=== PATIENT | female | born 1930 | race Caucasian/White ===

== ENCOUNTER → 2016-09-13 | Outpatient (CLI) | payer BC ==
[~2016-09-13] MED LIST: ACET-1256 PO; ASPI-232 PO; BCTO EXT; BISA10SU3 PR; CEPH-571 PO; CHOL1000 PO; CLON0.5T3 PO; CZR50 PO; DILT120C68 PO; DOCU-94 PO; DXM1 PO; DYZ PO; GABA1CAP PO; HYDR25TA4 PO; LEVE250T PO; LOSA100T65 PO; MELA3TAB12 PO; METO100T14 PO; METO50TA7 PO; MOML PO; MULT-506 PO; PENC1CRE4 TOP; POTA10CA28 PO; RSTOPS OP; SODIENE PR; STLS PO; WARF2TAB PO
== END | disposition home or self-care (01) ==
LOC: C.LABFOXMH 17:22
PROVIDERS: ATTEND Nurse Practitioner Family
DX: R35.0 Frequency of micturition (principal)

== ENCOUNTER → 2016-10-14 | Outpatient (CLI) | payer BC ==
[2016-10-14 08:14] LABS: HEMATOCRIT 36.1 % (37-47); MEAN CELL VOLUME 92.3 fL (80-100); MEAN CORPUSCULAR HEMOGLOBIN 32.5 pg (25-34); MEAN CORPUSCULAR HGB CONC 35.2 g/dl (32-36); RED BLOOD COUNT 3.91 M/uL (4.2-5.4); WHITE BLOOD COUNT 4.77 K/uL (4.8-10.8)
[2016-10-14 08:15] LABS: MEAN PLATELET VOLUME 9.6 fL (7.4-10.4); PLATELET COUNT 268 K/uL (130-400)
[2016-10-14 08:26] LABS: ALT/SGPT 22 U/L (12-78); BLOOD UREA NITROGEN 18 mg/dl (7-18); BUN/CREATININE RATIO 30.7 (10-20); CALCIUM 8.6 mg/dl (8.5-10.1); CARBON DIOXIDE 25 mmol/L (21-32); CHLORIDE 104 mmol/L (98-107); CREATININE 0.58 mg/dl (0.60-1.20); GLUCOSE 79 mg/dl (70-99); POTASSIUM 3.8 mmol/L (3.5-5.1); SODIUM 138 mmol/L (136-145)
[2016-10-14 08:36] LABS: ALB/GLOB RATIO 1.1 (0.9-2); ALKALINE PHOSPHATASE 51 U/L (45-117); AST/SGOT 15 U/L (15-37)
== END | disposition home or self-care (01) ==
LOC: C.LABFOXMH 07:46
PROVIDERS: ATTEND Internal Medicine
DX: R60.9 Edema, unspecified (principal)

== ENCOUNTER → 2016-10-18 | Outpatient (CLI) | payer BC ==
[2016-10-18 08:54] LABS: HEMATOCRIT 38.6 % (37-47); MEAN CELL VOLUME 94.6 fL (80-100); MEAN CORPUSCULAR HEMOGLOBIN 32.1 pg (25-34); MEAN CORPUSCULAR HGB CONC 33.9 g/dl (32-36); MEAN PLATELET VOLUME 10.2 fL (7.4-10.4); PLATELET COUNT 295 K/uL (130-400); RED BLOOD COUNT 4.08 M/uL (4.2-5.4); WHITE BLOOD COUNT 5.22 K/uL (4.8-10.8)
[2016-10-18 09:02] LABS: ALT/SGPT 23 U/L (12-78); AST/SGOT 15 U/L (15-37); BLOOD UREA NITROGEN 19 mg/dl (7-18); BUN/CREATININE RATIO 26.9 (10-20); CALCIUM 8.6 mg/dl (8.5-10.1); CARBON DIOXIDE 27 mmol/L (21-32); CHLORIDE 102 mmol/L (98-107); CREATININE 0.71 mg/dl (0.60-1.20); GLUCOSE 80 mg/dl (70-99); POTASSIUM 3.5 mmol/L (3.5-5.1); SODIUM 137 mmol/L (136-145)
[2016-10-18 09:05] LABS: ALB/GLOB RATIO 1.1 (0.9-2); ALKALINE PHOSPHATASE 54 U/L (45-117)
== END | disposition home or self-care (01) ==
LOC: C.LABFOXMH 08:41
PROVIDERS: ATTEND Internal Medicine
DX: R00.0 Tachycardia, unspecified (principal)

== ENCOUNTER → 2016-10-31 | Outpatient (CLI) | payer BC ==
[~2016-10-31] MED LIST changes: +CEFD300C3 PO; +DILT120C50 PO; +DMD20 PO; +LNX125 PO; +NEOMOIN3 TOP; +PENC1CRE33 TOP; -PENC1CRE4 TOP; +SALI0.6593 NAE
--- NOTE | 2016-10-31 12:55 | ECHOCARDIOGRAM REPORT ---
*NOTICE TO RECEIVING [employer] [employer] This information is strictly Confidential and protected under [place] law. [place] law prohibits you from making any further disclosure of this information unless further disclosure is expressly permitted by the written consent of the person to whom it pertains or is authorized by law. A general authorization for the release of medical or other information is not sufficient for this purpose. Hospital accepts no responsibility if the information is made available to any other person, INCLUDING THE PATIENT. Interpretation Summary * Name: TANYA PERALTA Study Date: 10/31/2016 10:56 AM BP: 120/80 mmHg * Patient Location: [facility] HR: 63 * : 1930 (M/d/yyyy) Gender: Female Height: 66 in * Age: 85 yrs Ethnicity: CA Weight: 175 lb * Performed By: Piper Duarte RCS * * Reason For Study: ATRIAL TACHYCARDIA * BSA: 1.9 m2 * -- Conclusions -- * Left ventricular systolic function is normal. * No regional wall motion abnormalities noted. * Ejection Fraction = 55-60%. * There is mild concentric left ventricular hypertrophy. * Grade I diastolic dysfunction, (abnormal relaxation pattern). * No significant valvular pathology. Procedure Details * A complete two-dimensional transthoracic echocardiogram was performed (2D, M-mode, Doppler and color flow Doppler). Left Ventricle * The left ventricle is normal in size. * There is mild concentric left ventricular hypertrophy. * Left ventricular systolic function is normal. * Ejection Fraction = 55-60%. * No regional wall motion abnormalities noted. Right Ventricle * The right ventricle is not well visualized. * The right ventricular systolic function is normal as assessed by tricuspid annular plane systolic excursion (TAPSE) (normal >1.5 cm). Atria * The left atrium is mildly dilated. * The right atrium is mildly dilated. * No ASD detected; PFO is not assessed. Mitral Valve * The mitral valve anatomy is normal. * There is no mitral valve stenosis. * There is trace mitral regurgitation. Tricuspid Valve * The tricuspid valve is not well visualized, but is grossly normal. * Significant tricuspid regurgitation is absent. Aortic Valve * The aortic valve is normal in structure and function. * No hemodynamically significant valvular aortic stenosis. * Trace aortic regurgitation. Pulmonic Valve * The pulmonary valve is not well seen, but the Doppler examination is normal without significant regurgitation or stenosis. Great Vessels * The aortic root is normal size. * Mildly dilated ascending aorta. * The pulmonary artery is not well visualized, but is probably normal size. Pericardium/Pleural * There is no pericardial effusion. Left Ventricular Diastolic Function * Grade I diastolic dysfunction, (abnormal relaxation pattern). MMode 2D Measurements and Calculations IVSd 1.6 cm IVSs 2.0 cm LVIDd 4.2 cm LVIDs 2.3 cm LVPWd 1.3 cm LVPWs 1.6 cm IVS/LVPW 1.2 FS 46.3 % EDV(Teich) 79.7 ml ESV(Teich) 17.5 ml EF(Teich) 78.1 % EDV(cubed) 75.5 ml ESV(cubed) 11.7 ml EF(cubed) 84.6 % % IVS thick 27.8 % % LVPW thick 26.7 % LV mass(C)d 232.0 grams LV mass(C)dI 122.7 grams/m\S\2 LV mass(C)s 160.9 grams LV mass(C)sI 85.1 grams/m\S\2 SV(Teich) 62.3 ml SI(Teich) 32.9 ml/m\S\2 SV(cubed) 63.8 ml SI(cubed) 33.8 ml/m\S\2 Ao root diam 3.9 cm Ao root area 12.2 cm\S\2 ACS 2.2 cm LA dimension 4.3 cm LA/Ao 1.1 LVOT diam 2.0 cm LVOT area 3.1 cm\S\2 LVAd ap4 24.9 cm\S\2 LVLd ap4 6.5 cm EDV(MOD-sp4) 80.4 ml EDV(sp4-el) 81.8 ml LVAs ap4 15.0 cm\S\2 LVLs ap4 5.1 cm ESV(MOD-sp4) 36.2 ml ESV(sp4-el) 37.2 ml EF(MOD-sp4) 55.0 % EF(sp4-el) 54.6 % LVAd ap2 28.2 cm\S\2 LVLd ap2 6.7 cm EDV(MOD-sp2) 94.4 ml EDV(sp2-el) 100.7 ml LVAs ap2 13.6 cm\S\2 LVLs ap2 4.9 cm ESV(MOD-sp2) 31.8 ml ESV(sp2-el) 31.7 ml EF(MOD-sp2) 66.3 % EF(sp2-el) 68.5 % LVLd %diff 3.6 % EDV(MOD-bp) 89.5 ml LVLs %diff -3.80 % ESV(MOD-bp) 34.6 ml EF(MOD-bp) 61.3 % SV(MOD-sp4) 44.2 ml SI(MOD-sp4) 23.4 ml/m\S\2 SV(MOD-sp2) 62.6 ml SI(MOD-sp2) 33.1 ml/m\S\2 SV(MOD-bp) 54.9 ml SI(MOD-bp) 29.0 ml/m\S\2 SV(sp4-el) 44.6 ml SI(sp4-el) 23.6 ml/m\S\2 SV(sp2-el) 68.9 ml SI(sp2-el) 36.5 ml/m\S\2 Doppler Measurements and Calculations MV E max rohan 85.2 cm/sec MV A max rohan 98.1 cm/sec MV E/A 0.87 MV P1/2t max rohan 85.9 cm/sec MV P1/2t 89.2 msec MVA(P1/2t) 2.5 cm\S\2 MV dec slope 282.0 cm/sec\S\2 MV dec time 0.29 sec Ao V2 max 113.0 cm/sec Ao max PG 5.1 mmHg Ao max PG (full) 2.4 mmHg COURTNEY(V,A) 2.2 cm\S\2 COURTNEY(V,D) 2.2 cm\S\2 LV V1 max PG 2.7 mmHg LV V1 max 82.5 cm/sec PA V2 max 95.3 cm/sec PA max PG 3.6 mmHg
== END | disposition home or self-care (01) ==
LOC: C.CPL 10:46
PROVIDERS: ATTEND Internal Medicine
DX: R06.00 Dyspnea, unspecified (principal); I47.1 Supraventricular tachycardia

== ENCOUNTER → 2016-11-01 | Outpatient (CLI) | payer BC ==
[2016-11-01 09:18] LABS: BLOOD UREA NITROGEN 21 mg/dl (7-18); CREATININE 0.69 mg/dl (0.60-1.20); GLUCOSE 88 mg/dl (70-99)
[2016-11-01 09:19] LABS: BUN/CREATININE RATIO 30.6 (10-20); CALCIUM 8.8 mg/dl (8.5-10.1); CARBON DIOXIDE 28 mmol/L (21-32); CHLORIDE 101 mmol/L (98-107); POTASSIUM 4.1 mmol/L (3.5-5.1); SODIUM 137 mmol/L (136-145)
== END | disposition home or self-care (01) ==
LOC: C.LABFOXMH 08:56
PROVIDERS: ATTEND Internal Medicine
DX: K59.00 Constipation, unspecified (principal); E03.9 Hypothyroidism, unspecified

== ENCOUNTER → 2016-11-29 | Outpatient (CLI) | payer BC ==
[2016-11-29 08:57] LABS: BASO % 0.4 %; BASO ABS # 0.02 K/uL (0-0.2); COMPLETE YES; EOS % 1.8 %; LYMPH % 33.2 %; LYMPH ABS # 1.63 K/uL (1.2-3.4); MEAN CELL VOLUME 96.9 fL (80-100); MEAN CORPUSCULAR HEMOGLOBIN 31.9 pg (25-34); MEAN CORPUSCULAR HGB CONC 32.9 g/dl (32-36); MEAN PLATELET VOLUME 10.3 fL (7.4-10.4); MONO % 7.9 %; NEUT % 56.7 %; PLATELET COUNT 259 K/uL (130-400); RED BLOOD COUNT 4.23 M/uL (4.2-5.4); WHITE BLOOD COUNT 4.91 K/uL (4.8-10.8)
[2016-11-29 09:06] LABS: BLOOD UREA NITROGEN 22 mg/dl (7-18); BUN/CREATININE RATIO 31.4 (10-20); CARBON DIOXIDE 27 mmol/L (21-32); CHLORIDE 105 mmol/L (98-107); CREATININE 0.71 mg/dl (0.60-1.20); GLUCOSE 85 mg/dl (70-99); POTASSIUM 3.9 mmol/L (3.5-5.1); SODIUM 140 mmol/L (136-145); URIC ACID 3.9 mg/dl (2.6-7.2)
[2016-11-29 09:19] LABS: CALCIUM 8.8 mg/dl (8.5-10.1)
== END ==
LOC: C.LABFOXMH 08:37
PROVIDERS: ATTEND Internal Medicine
DX: I10 Essential (primary) hypertension (principal); M25.50 Pain in unspecified joint

== ENCOUNTER → 2017-02-07 | Outpatient (CLI) | payer BC ==
[~2017-02-07] MED LIST changes: -CEFD300C3 PO; -DILT120C50 PO; -DMD20 PO; -LNX125 PO; -NEOMOIN3 TOP; -PENC1CRE33 TOP; +PENC1CRE4 TOP; -SALI0.6593 NAE
== END | disposition home or self-care (01) ==
LOC: C.LABFOXMH 17:40
PROVIDERS: ATTEND Nurse Practitioner Family
DX: R35.0 Frequency of micturition (principal)

== ENCOUNTER 2017-02-08 04:11 | Emergency (ER) | payer BC ==
[~2017-02-08] VITALS: Ht 165.1 cm; Wt 82.3 kg
[~2017-02-08 04:11] MED LIST changes: -ACET-1256 PO; -ASPI-232 PO; -BCTO EXT; -BISA10SU3 PR; -CEPH-571 PO; -CHOL1000 PO; -CLON0.5T3 PO; -DILT120C68 PO; -DOCU-94 PO; -DXM1 PO; -GABA1CAP PO; -HYDR25TA4 PO; -LEVE250T PO; -LOSA100T65 PO; -MELA3TAB12 PO; -METO100T14 PO; -METO50TA7 PO; -MOML PO; -PENC1CRE4 TOP; -POTA10CA28 PO; -SODIENE PR
[2017-02-08 04:14] VITALS: TEMP 36.7; Ht 165.1 cm; Wt 82.3 kg
--- NOTE | 2017-02-08 04:33 | EMERGENCY ROOM VISIT NOTE ---
History Report prepared by Phyllisibguera: Jeannine Montalvo Under the Supervision of: Dr. June Richardson D.O. First contact with patient: 04:16 Chief Complaint: FALL Stated Complaint: FALL History of Present Illness The patient is an 86 year old female who presents to the Emergency Room with complaints of a fall that occurred prior to arrival. She was brought to the ED via EMS from [facility] where she resides. She reports she went to bed around 2200 last night, and the next thing she knew, she woke up on the floor of her living room. She states she does not know how she ended up on the floor, but was able to call a neighbor for help, who then called EMS. She denies hitting her head during the fall. She admits to some left forearm pain but denies any knee pain. She also complains of "tight" low back pain and feeling "shaky" here in the ED. The patient is currently on antibiotics but states she does not know why she's taking them. Her daughter is a radiologist in [place] and staff at [facility] called her after the patient was taken to the ED. EMS reports there was "dark yellow" urine on the floor by the patient when they arrived, but her apartment did not seem overly messy or out of order. They state the patient told them she took a sleeping pill prior to going to bed. 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 A total of 10 systems reviewed and were otherwise negative. Past Medical & Surgical Medical Problems: (1) Arthritis (2) Hypertension Social History Alcohol Use: none Drug Use: none Marital Status: Housing Status: assisted living Occupation Status: retired Current/Historical Medications Unable to Obtain Active Prescriptions or Reported Meds Allergies Coded Allergies: No Known Allergies (Unverified , NONE, 06/12/13) Physical Exam Vital Signs Date Time Temp Pulse Resp B/P (MAP) Pulse Ox O2 Delivery O2 Flow Rate FiO2 02/08/17 05:22 76 18 175/93 96 Room Air 02/08/17 05:18 95 Room Air 02/08/17 04:25 76 02/08/17 04:14 36.7 71 20 181/80 96 Room Air Physical Exam HEENT: Head - normocephalic and atraumatic. Pupils are equal, round, and reactive to light. Extraocular eye muscles are intact and sclera are anicteric. Nose - moist nasal mucosa without evidence of trauma or discharge. Mouth - moist buccal mucosa with no trauma to the teeth or signs of malocclusion. Neck: The neck is supple and there is no pain to palpation over the posterior cervical spine and no obvious step-offs or deformities. There is no JVD or tracheal deviation. Chest: There are no signs of deformities, contusions or abrasions to the chest wall. There is no obvious crepitus or paradoxical chest rise. Heart: Regular, rate, and rhythm. There is a normal S1 and S2 with no murmurs, clicks, or gallops appreciated. Lungs: Clear to auscultation bilaterally with no wheezes, rales, or rhonchi. Abdomen: Soft, completely nontender, nondistended, with good bowel sounds. There is no sign of trauma such as contusions, abrasions or penetrations. There are no palpable pulsatile masses or hepatosplenomegaly. There is no guarding, rigidity, or rebound noted. Pelvis: Stable to rock and compression. Extremities: Abrasions on the medial aspect of the left forearm and left wrist. Contusion to left shoulder, normal ROM. No obvious deformities, contusions, or edema. There are easily palpable peripheral pulses. Neuro: The patient is awake and alert but unsure of the events of the fall, or why she is on antibiotics. Muscle strength is 5 out of 5 in all 4 extremities. Otherwise, neuro exam is unremarkable. Back: The entire thoracic, lumbar, and sacral spine were palpated. There are no obvious step-offs or deformities noted. There are no obvious signs of trauma such as contusions abrasions penetrations noted to the back. Medical Decision & Procedures ER Provider Diagnostic Interpretation: Radiology results as stated below per my review and the radiologist's interpretation: CHEST X-RAY Cardiomegaly. No pulmonary infiltrates or pleural effusions seen, per my own review. CT HEAD Comparison 02/05/2011. Previously described left frontoparietal mass has increased in size with increased vasogenic edema in the left cerebral hemisphere. 8 mm midline shift to the right. Correlate with history. No intracranial hemorrhage. No skull fracture. Paranasal sinuses and mastoid air cells are clear. Radiologist: Dr. Richy Robison MD Laboratory Results 02/08/17 05:11 Red Blood Count 4.58, Mean Corpuscular Volume 91.9, Mean Corpuscular Hemoglobin 32.1, Mean Corpuscular Hemoglobin Concent 34.9, Mean Platelet Volume 9.3, Neutrophils (%) (Auto) 79.0, Lymphocytes (%) (Auto) 11.5, Monocytes (%) (Auto) 8.9, Eosinophils (%) (Auto) 0.3, Basophils (%) (Auto) 0.0, Neutrophils # (Auto) 6.11, Lymphocytes # (Auto) 0.89, Monocytes # (Auto) 0.69, Eosinophils # (Auto) 0.02, Basophils # (Auto) 0.00 02/08/17 05:11 Test 02/08/17 05:00 02/08/17 05:11 02/08/17 05:21 Urine Color DK YELLOW Urine Appearance CLEAR (CLEAR) Urine pH 7.5 (4.5-7.5) Urine Specific Ducor 1.009 (1.000-1.030) Urine Protein NEG (NEG) Urine Glucose (UA) NEG (NEG) Urine Ketones NEG (NEG) Urine Occult Blood NEG (NEG) Urine Nitrite POS (NEG) Urine Bilirubin NEG (NEG) Urine Urobilinogen NEG (NEG) Urine Leukocyte Esterase NEG (NEG) Urine WBC (Auto) 0 /hpf (0-5) Urine RBC (Auto) 0-4 /hpf (0-4) Urine Hyaline Casts (Auto) 0 /lpf (0-5) Urine Epithelial Cells (Auto) 0-5 /lpf (0-5) Urine Bacteria (Auto) NEG (NEG) White Blood Count 7.73 K/uL (4.8-10.8) Red Blood Count 4.58 M/uL (4.2-5.4) Hemoglobin 14.7 g/dL (12.0-16.0) Hematocrit 42.1 % (37-47) Mean Corpuscular Volume 91.9 fL (80-100) Mean Corpuscular Hemoglobin 32.1 pg (25-34) Mean Corpuscular Hemoglobin Concent 34.9 g/dl (32-36) Platelet Count 289 K/uL (130-400) Mean Platelet Volume 9.3 fL (7.4-10.4) Neutrophils (%) (Auto) 79.0 % Lymphocytes (%) (Auto) 11.5 % Monocytes (%) (Auto) 8.9 % Eosinophils (%) (Auto) 0.3 % Basophils (%) (Auto) 0.0 % Neutrophils # (Auto) 6.11 K/uL (1.4-6.5) Lymphocytes # (Auto) 0.89 K/uL (1.2-3.4) Monocytes # (Auto) 0.69 K/uL (0.11-0.59) Eosinophils # (Auto) 0.02 K/uL (0-0.5) Basophils # (Auto) 0.00 K/uL (0-0.2) RDW Standard Deviation 43.7 fL (36.4-46.3) RDW Coefficient of Variation 13.0 % (11.5-14.5) Immature Granulocyte % (Auto) 0.3 % Immature Granulocyte # (Auto) 0.02 K/uL (0.00-0.02) Prothrombin Time 10.1 SECONDS (9.0-12.0) Prothromb Time International Ratio 0.9 (0.9-1.1) Activated Partial Thromboplast Time 30.4 SECONDS (21.0-31.0) Partial Thromboplastin Ratio 1.2 Anion Gap 9.0 mmol/L (3-11) Est Creatinine Clear Calc Drug Dose 58.6 ml/min Estimated GFR () 86.4 Estimated GFR (Non- 74.6 BUN/Creatinine Ratio 26.0 (10-20) Calcium Level 8.8 mg/dl (8.5-10.1) Total Bilirubin 0.9 mg/dl (0.2-1) Aspartate Amino Transf (AST/SGOT) 30 U/L (15-37) Alanine Aminotransferase (ALT/SGPT) 35 U/L (12-78) Alkaline Phosphatase 67 U/L (45-117) Total Protein 6.9 gm/dl (6.4-8.2) Albumin 3.6 gm/dl (3.4-5.0) Globulin 3.3 gm/dl (2.5-4.0) Albumin/Globulin Ratio 1.1 (0.9-2) Bedside Lactic Acid Venous 0.75 mmol/L (0.90-1.70) Laboratory results per my review. ED Course 0419: Past medical records reviewed. The patient was evaluated in room A3. A complete history and physical exam was performed. Laboratory studies were drawn as above. The patient was able to provide a urine specimen. 0435: Staff at [facility] cannot get in to any of their computer systems to get medical information on the patient. The patient will go for CT scan of the brain to evaluate for progression or enlargement of the known meningioma. 0445: I spoke with the patient's daughter, Dr. Vanessa Dodd, on the phone. She states her mother has a history of meningioma. She has noticed increased spells of confusion and difficulty with language. She did speak with the patient last night on the phone and noticed she was slightly confused, but it did clear up. She was diagnosed yesterday with a UTI and was placed on antibiotics, but she is unsure which medication was prescribed. 0548: I reevaluated the patient. Her mental status is more clear and she is drinking water with no issues. 0618: I spoke with the patients daughter, Vanessa, again. I discussed her test results and my recommendation she follow up with Dr. Baeza at [facility] later today. She verbalized complete understanding and agreement. 0620: I reevaluated the patient. She is feeling well. I discussed her results and discharge instructions and she verbalized complete understanding and agreement. Medical Decision Patient was found to have an elevated blood pressure and was referred to their primary doctor for recheck and further treatment. The patient is an 86 year old female who presents to the ED with a fall. The different diagnoses include: Sepsis, syncope, UTI, medication side effects, mechanical fall and head injury. Lab results show: Urinalysis shows dark yellow urine, positive nitrite, otherwise completely negative. Lactic acid is low at 0.75, COAG's are normal, no leukocytosis, stable H&H. Sodium is slightly low at 132, BUN is 19, Creatinine is 0.7, Glucose is 94, LFT's are normal. This is an 86-year-old female patient who fell to the floor in her living room of her apartment. The patient does not remember how she got out to the living room. EMS/police found that she was incontinent. The patient is currently being treated with an antibiotic for a urinary tract infection. The patient's daughter who is a physician describes a history of increasing episodes of confusion. CT scan confirms slight enlargement of the meningioma with slight increase of midline shift. There was no associated hemorrhage. The patient's mental status returned to normal prior to discharge. I've encouraged the patient to be seen today by Dr. Baeza at [facility] for these increased episodes of confusion. She should continue the antibiotics for the urinary tract infection. This could be exacerbating the confusion as well. I kept the patient's daughter abreast of the situation. Impression Primary Impression: Altered mental status Additional Impression: Fall Scribe Attestation The scribe's documentation has been prepared under my direction and personally reviewed by me in its entirety. I confirm that the note above accurately reflects all work, treatment, procedures, and medical decision making performed by me. Departure Information Dispostion Home / Self-Care Prescriptions Unable to Obtain Active Prescriptions or Reported Meds Referrals Eulogio Wisdom (PCP) Patient Instructions ED Fall Uncertain Cause, My [facility] Additional Instructions Rest. Continue antibiotics as directed. Follow up with Dr. Baeza about the elevated BP and episodes of confusion. Problem Qualifiers Primary Impression: Altered mental status Altered mental status type: disorientation Qualified Codes: R41.0 - Disorientation, unspecified Additional Impression: Fall Encounter type: initial encounter Qualified Codes: W19.XXXA - Unspecified fall, initial encounter
[2017-02-08 05:18] VITALS: O2SAT 95
[2017-02-08 05:22] LABS: COMPLETE YES; EOS % 0.3 %; HEMATOCRIT 42.1 % (37-47); IG% 0.3 %; LYMPH % 11.5 %; LYMPH ABS # 0.89 K/uL (1.2-3.4); MEAN CELL VOLUME 91.9 fL (80-100); MEAN CORPUSCULAR HEMOGLOBIN 32.1 pg (25-34); MEAN CORPUSCULAR HGB CONC 34.9 g/dl (32-36); MEAN PLATELET VOLUME 9.3 fL (7.4-10.4); MONO % 8.9 %; PLATELET COUNT 289 K/uL (130-400); RED BLOOD COUNT 4.58 M/uL (4.2-5.4); WHITE BLOOD COUNT 7.73 K/uL (4.8-10.8)
[2017-02-08 05:25] LABS: URINE APPEARANCE CLEAR (CLEAR); URINE BILIRUBIN NEG (NEG); URINE COLOR DK YELLOW; URINE EPITHELIAL CELL AUTO 0-5 /lpf (0-5); URINE NITRITE POS (NEG); URINE PH 7.5 (4.5-7.5); URINE SPECIFIC GRAVITY 1.009 (1.000-1.030); UROBILINOGEN NEG (NEG)
[2017-02-08 05:26] LABS: MANUAL MICROSCOPIC REQUIRED? NO; REVIEW REQ? NO
[2017-02-08 05:32] LABS: INR 0.9 (0.9-1.1); PARTIAL THROMBOPLASTIN RATIO 1.2; PROTHROMBIN TIME (PATIENT) 10.1 SECONDS (9.0-12.0)
[2017-02-08 05:42] LABS: CALCIUM 8.8 mg/dl (8.5-10.1); CREATININE 0.73 mg/dl (0.60-1.20); POTASSIUM 3.3 mmol/L (3.5-5.1)
[2017-02-08 05:45] LABS: ALB/GLOB RATIO 1.1 (0.9-2)
--- NOTE | 2017-02-08 06:25 | DIAGNOSTIC IMAGING REPORT ---
HEAD CT NONCONTRAST CT DOSE: 537.48 mGy.cm HISTORY: Trauma eval for trauma TECHNIQUE: Multiaxial CT images of the head were performed without the use of intravenous contrast. Comparison: MRI dated 08/05/2014 Findings: The extra-axial mass which is been described on the prior studies is again noted. Slight increase in reactive vasogenic edema. Mild increase in midline shift to the right currently estimated at 7 mm. No acute intracranial hemorrhage. No midline shift. Several microcalcifications within the left side mass which have been described previously. Impression: 1. Mild increase in mass effect of a left frontal parietal lesion. 2. Midline shift to the right at 7 mm. 3. No acute intracranial posttraumatic abnormality Electronically signed by: Bro Munoz M.D. 02/08/2017 6:24 AM Dictated Date/Time: 02/08/2017 6:21 AM
[2017-02-08 06:35] VITALS: BP 154/118; PULSE 68; O2SAT 95
--- NOTE | 2017-02-08 06:42 | DIAGNOSTIC IMAGING REPORT ---
CHEST ONE VIEW PORTABLE HISTORY:86 yearsFemaleSepsis COMPARISON: 05/13/2013 TECHNIQUE: Portable upright AP view of the chest FINDINGS: There is atherosclerosis of the aorta. The heart is mildly enlarged with mild pulmonary vascular congestion and background reticulation. There is no pneumothorax or pleural effusion. Subtle retrocardiac airspace opacities are seen. Curvilinear calcification of the right upper mediastinum suggests a vascular calcification, progressed from prior. The bones are demineralized with remote fracture deformity of the proximal right humerus. IMPRESSION: 1. Cardiomegaly with mild pulmonary vascular congestion. 2. Subsegmental retrocardiac opacities suggest atelectasis with developing pneumonia also within the differential. The above report was generated using voice recognition software. It may contain grammatical, syntax or spelling errors. Electronically signed by: Ward Fairbanks M.D. 02/08/2017 6:41 AM Dictated Date/Time: 02/08/2017 6:39 AM
[2017-02-09] MEDS ORDERED: PENC1CRE4 TOP (14:23)
[2017-02-09] MEDS ORDERED: GABA1CAP PO (14:23)
[2017-02-09] MEDS ORDERED: CLON0.5T3 PO ×2 (14:23)
[2017-02-24] MEDS ORDERED: POTA10CA28 PO (14:23)
[2017-02-24] MEDS ORDERED: ASPI-232 PO (14:23)
[2017-02-24] MEDS ORDERED: ACET-1256 PO (14:23)
[2017-02-24] MEDS ORDERED: DOCU-94 PO (14:23)
[2017-02-24] MEDS ORDERED: CHOL1000 PO (14:23)
[2017-02-24] MEDS ORDERED: HYDR25TA4 PO (14:23)
[2017-02-24] MEDS ORDERED: LOSA100T65 PO (14:23)
[2017-02-24] MEDS ORDERED: METO50TA7 PO (14:23)
== END 2017-02-08 06:56 | disposition home or self-care (01) ==
LOC: EDBD 04:11 → C.EDA 04:12
DX: R41.0 Disorientation, unspecified (principal); W19.XXXA Unspecified fall, initial encounter; S50.812A Abrasion of left forearm, initial encounter; S60.812A Abrasion of left wrist, initial encounter; S40.012A Contusion of left shoulder, initial encounter; Y92.128 Other place in nursing home as the place of occurrence of the external cause; M54.5 Low back pain; M19.90 Unspecified osteoarthritis, unspecified site; I10 Essential (primary) hypertension; N39.0 Urinary tract infection, site not specified

== ENCOUNTER 2017-02-09 11:32 | Inpatient (IN) | payer BC, OTHER ==
[~2017-02-09] VITALS: Ht 165.1 cm; Wt 81.0 kg
[2017-02-09] MEDS ORDERED: XYLOCAINE 1%/SOD BICARB 20 ML VIAL INFIL ONE (12:30)
[2017-02-09 13:03] LABS: BASO % 0.1 %; BASO ABS # 0.01 K/uL (0-0.2); COMPLETE YES; EOS % 0.1 %; HEMATOCRIT 42.8 % (37-47); IG% 0.1 %; LYMPH % 7.6 %; LYMPH ABS # 0.56 K/uL (1.2-3.4); MEAN CORPUSCULAR HEMOGLOBIN 32.4 pg (25-34); MEAN CORPUSCULAR HGB CONC 34.8 g/dl (32-36); MEAN PLATELET VOLUME 9.7 fL (7.4-10.4); MONO % 8.3 %; NEUT % 83.8 %; PLATELET COUNT 280 K/uL (130-400); WHITE BLOOD COUNT 7.38 K/uL (4.8-10.8)
[2017-02-09 13:16] LABS: INR 0.9 (0.9-1.1); PARTIAL THROMBOPLASTIN RATIO 1.1
[2017-02-09 13:20] LABS: ALT/SGPT 39 U/L (12-78); AST/SGOT 39 U/L (15-37); BLOOD UREA NITROGEN 18 mg/dl (7-18); BUN/CREATININE RATIO 24.8 (10-20); CARBON DIOXIDE 27 mmol/L (21-32); CHLORIDE 91 mmol/L (98-107); CREATININE 0.72 mg/dl (0.60-1.20); GLUCOSE 96 mg/dl (70-99); POTASSIUM 3.4 mmol/L (3.5-5.1); SODIUM 129 mmol/L (136-145)
--- NOTE | 2017-02-09 13:22 | DIAGNOSTIC IMAGING REPORT ---
CERVICAL SPINE W/O CT DOSE: HISTORY: Trauma eval for fx TECHNIQUE: Multiaxial CT images of the cervical spine were performed and reformatted in the sagittal and coronal plane without the use of contrast. COMPARISON: None. FINDINGS: No fractures. No subluxation. Prevertebral soft tissues and the C1-C2 interval are intact. No pneumothorax. Generalized moderate degenerative change IMPRESSION: No fractures within the cervical spine. The above report was generated using voice recognition software. It may contain grammatical, syntax or spelling errors. Electronically signed by: Bro Munoz M.D. 02/09/2017 1:21 PM Dictated Date/Time: 02/09/2017 1:20 PM
--- NOTE | 2017-02-09 13:24 | DIAGNOSTIC IMAGING REPORT ---
CT HEAD WITHOUT CONTRAST (CT) CLINICAL HISTORY: Change in mental status extra-axial mass. TRAUMA COMPARISON STUDY: 02/08/2017 TECHNIQUE: Axial CT of the brain is performed from the vertex to the skull base. IV contrast was not administered for this examination. CT DOSE: k FINDINGS: Again evident is a 41 mm extra-axial left frontal temporal mass. There is extensive left hemispheric vasogenic edema. There is 7 mm of left to right midline shift. There is effacement of the left lateral ventricle. There is no acute hemorrhage. No calvarial fractures are visualized. There is a right parietal scalp edema. There is no evidence of pathologic ventricular dilatation. There is no evidence of acute sinusitis IMPRESSION: 1. Stable left frontotemporal extra-axial mass. There is extensive left hemispheric vasogenic edema and 7 mm of left to right midline shift. 2. Right parietal scalp edema. 3. No evidence of acute hemorrhage Electronically signed by: Usman Forbes M.D. 02/09/2017 1:23 PM Dictated Date/Time: 02/09/2017 1:20 PM
--- NOTE | 2017-02-09 13:26 | DIAGNOSTIC IMAGING REPORT ---
LUMBAR SPINE WITHOUT CT DOSE: HISTORY: Trauma eval for fx TECHNIQUE: Multiaxial CT images of the lumbar spine were performed and reformatted in the sagittal and coronal plane without the use of contrast. COMPARISON: None. FINDINGS: No fractures. No subluxation. Paraspinal soft tissues are unremarkable. Generalized degenerative change throughout. IMPRESSION: No fractures within the lumbar spine. Generalized degenerative change The above report was generated using voice recognition software. It may contain grammatical, syntax or spelling errors. Electronically signed by: Bro Munoz M.D. 02/09/2017 1:25 PM Dictated Date/Time: 02/09/2017 1:22 PM
[2017-02-09 13:31] LABS: ALKALINE PHOSPHATASE 66 U/L (45-117); CKMB/CK RATIO 2.1 (0-3.0)
[2017-02-09] MEDS ORDERED: PENC1CRE4 TOP (14:23)
[2017-02-09] MEDS ORDERED: CLON0.5T3 PO ×2 (14:23)
[2017-02-09] MEDS ORDERED: GABA1CAP PO (14:23)
--- NOTE | 2017-02-09 15:02 | DIAGNOSTIC IMAGING REPORT ---
CHEST ONE VIEW PORTABLE CLINICAL HISTORY: fall eval for pnea trauma COMPARISON STUDY: 02/08/2017 FINDINGS: Chronic parenchymal prominence left lung base. No acute infiltrate. Mild stable cardiomegaly. IMPRESSION: Chronic change. No acute process. Electronically signed by: Bro Munoz M.D. 02/09/2017 3:01 PM Dictated Date/Time: 02/09/2017 3:00 PM
[2017-02-09] MEDS ORDERED: DOCUSATE SODIUM 100 MG CAP PO PRN (15:15)
[2017-02-09] MEDS ORDERED: ONDANSETRON INJ 2 MG/ML 2 ML VIAL IV PRN (15:15)
[2017-02-09] MEDS ORDERED: MAGNESIUM HYDROXIDE SUSP 30 ML UDC PO PRN (15:15)
[2017-02-09] MEDS ORDERED: ALUMINUM/MAGNESIUM/SIMETH (MAALOX MAX) 30 ML UDC PO PRN (15:15)
[2017-02-09] MEDS ORDERED: POLYETHYLENE (MIRALAX) 17 GM PACK PO PRN (15:15)
[2017-02-09 15:21] LABS: URINE APPEARANCE CLEAR (CLEAR); URINE BILIRUBIN NEG (NEG); URINE COLOR DK YELLOW; URINE EPITHELIAL CELL AUTO 0-5 /lpf (0-5); URINE PH 7.5 (4.5-7.5); URINE SPECIFIC GRAVITY 1.015 (1.000-1.030); UROBILINOGEN NEG (NEG)
--- NOTE | 2017-02-09 15:21 | History and Physical ---
History & Physical Date & Time of Service: Feb 09, 2017 at 15:15 Chief Complaint: Fall/ Head Lac/ [facility] Primary Care Physician: Eulogio Wisdom History of Present Illness Source: patient, family (Cousin) Ms. Dodd is an 86 y/o female with PMHx of Meningioma and HTN who presents due to a unwitnessed fall today. Patient is a resident of the independent living at [facility]. Patient is alert and oriented but a poor historian as she is fixated on the events of the day and hard to redirect. Did discuss patient with cousin at bedside and daughter over the phone. Baseline mentation is alert and oriented with intermittent moments of confusion that lasts a few minutes and seems to subside. She has associated chronic language and memory issues per the daughter x 18 months. Patient was seen in the ED on 02/08 for a fall that occurred in her livingroom. She cannot recall precipitating events but called a neighbor who called EMS. She returned home to [facility] after evaluation. Patient was then found on 02/10 in the garbage room at [facility], again patient is unable to recall precipitating events. During this fall she sustained a laceration to the posterior portion of her head. Currently, she complains of a headache and neck pain. Daughter reports that patient was diagnosed with a UTI and was placed on antibiotics on 02/07. Unable to reach [facility] to confirm medication. She reports urinary frequency but denies other symptoms. She denies fever/chills, CP, SOB, abdominal pain, N/V, dysuria, constipation/diarrhea. Spoke to daughter Vanessa who is a radiologist in [place] and is POA. Phone number is [phone]. Supplemental history obtained from her. Meningioma was diagnosed 6 1/2 years ago and was incidentally found after a fall. She has had ongoing monitoring by a neurosurgeon and in 2010 MRI confirmed the presence of a midline shift. She reports that the neurosurgeon deemed the patient too high a risk and not a good surgical candidate as they suspected she would infarct or herniate if they would proceed. She reports over the past 18 months she has noticed a gradual worsening of her language and memory. Daughter states she has a lot of moments of clarity but will have confusion that lasts for several minutes. Also reporting difficulty word finding and intermittent aphasia. This was all seen during examination of patient as she would intermittent use the wrong words but would realize that these were not the words she wanted to say. Of note, patient's right hearing aid battery and does have some hearing impairment that could be factoring in. Had a discussion with the patient and daughter who are all in agreement that no surgical intervention is wanted. Patient also expresses she would like medicinal intervention but no procedures. She expresses desire to be a DO NOT RESUSCITATE. Patient even with intermittent confusion does appear competent to make her own decisions. In the ED, Head CT shows a 41 mm L frontotemporal extra-axial mass with L hemispheric vasogenic edema and 7 mm L to R midline shift. This CT is stable from the one on 02/08 which was slightly worsened compared to the imaging prior to this. CT of neck and spine without fracture. Na is 129. She had 8 ella placed to the posterior portion of her head is difficulty approximating the center of the laceration. She will be admitted to telemetry for rhythm monitoring to R/O other causes of syncope. Past Medical/Surgical History 1. Meningioma 2. HTN 3. OA Family History No pertinent family history Unable to obtained due to confusion Social History Smoking Status: Never Smoker Drug Use: none Marital Status: Housing status: lives with family Occupational Status: retired Immunizations History of Influenza Vaccine: Yes Influenza Vaccine Date: May 24, 2012 History of Tetanus Vaccine?: Yes Tetanus Immunization Date: Nov 22, 2010 History of Pneumococcal: Yes Pneumococcal Date: May 24, 2012 History of Hepatitis B Vaccine: No Multi-Drug Resistant Organisms History of MDRO: No Allergies Coded Allergies: Lorazepam (Verified Allergy, Unknown, unknown, 02/09/17) Home Medications Scheduled Aspirin (Aspir-81), 1 TAB PO MWF Cholecalciferol (Vitamin D3), 2 TABS PO DAILY Clonazepam (Klonopin), 0.5 MG PO HS Gabapentin (Neurontin), 100 MG PO DAILY Hydrochlorothiazide (Hctz), 25 MG PO DAILY Losartan Potassium (Cozaar), 100 MG PO DAILY Metoprolol Succ (Toprol Xl) (Toprol-Xl), 50 MG PO DAILY Penciclovir (Denavir), 1 APPLN TOP Q2H Potassium Chloride (Micro-K Ext Rel), 10 MEQ PO DAILY Scheduled PRN Acetaminophen (Tylenol), 1,000 MG PO Q6H PRN for Pain or Fever Clonazepam (Klonopin), 0.5 TAB PO DAILY@0000 PRN for Insomnia Docusate Sodium (Colace), 1 CAP PO UD PRN for Constipation Review of Systems Constitutional: + problem reported (headache - back of head), No fever, No chills Eyes: No worsening of vision ENT: + hearing loss (chronic - R hearing aid battery ), + problem reported (neck pain) Respiratory: No cough, No shortness of breath Cardiovascular: No chest pain, No palpitations Abdomen: No pain, No nausea, No vomiting, No diarrhea, No constipation Musculoskeletal: No swelling, No calf pain Genitourinary - Female: + dysuria, + urinary frequency Integumentary: No rash, No new/changing skin lesions Physical Exam Vital Signs Date Time Temp Pulse Resp B/P (MAP) Pulse Ox O2 Delivery O2 Flow Rate FiO2 02/09/17 15:13 89 17 135/83 98 Room Air 02/09/17 13:46 67 02/09/17 13:40 69 20 161/85 95 Room Air 02/09/17 11:43 36.7 63 18 174/70 95 Room Air General Appearance: WD/WN, no apparent distress Head: normocephalic, + pertinent finding (laceration with 8 stables with central region with poor approximation) Eyes: PERRL, EOMI, sclerae normal ENT: + pertinent finding (dry mucous membranes; hearing impaired with bilateral hearing aids) Neck: supple, no JVD, trachea midline Respiratory/Chest: lungs clear, no respiratory distress, no accessory muscle use, + decreased breath sounds Cardiovascular: regular rate, rhythm, no gallop, no murmur Abdomen/GI: normal bowel sounds, non tender, soft Extremities/Musculoskelatal: no calf tenderness, no pedal edema, + pertinent finding (small superficial lacerations of L arm; large ecchymosis of R elbow) Neurologic/Psych: alert, oriented x 3, + pertinent finding (intermittent moments of confusion) Skin: normal color, warm/dry Diagnostics Laboratory Results Results Past 24 Hours Test 02/09/17 12:30 02/09/17 14:57 02/09/17 15:02 Range/Units White Blood Count 7.38 4.8-10.8 K/uL Red Blood Count 4.60 4.2-5.4 M/uL Hemoglobin 14.9 12.0-16.0 g/dL Hematocrit 42.8 37-47 % Mean Corpuscular Volume 93.0 80-100 fL Mean Corpuscular Hemoglobin 32.4 25-34 pg Mean Corpuscular Hemoglobin Concent 34.8 32-36 g/dl Platelet Count 280 130-400 K/uL Mean Platelet Volume 9.7 7.4-10.4 fL Neutrophils (%) (Auto) 83.8 % Lymphocytes (%) (Auto) 7.6 % Monocytes (%) (Auto) 8.3 % Eosinophils (%) (Auto) 0.1 % Basophils (%) (Auto) 0.1 % Neutrophils # (Auto) 6.18 1.4-6.5 K/uL Lymphocytes # (Auto) 0.56 1.2-3.4 K/uL Monocytes # (Auto) 0.61 0.11-0.59 K/uL Eosinophils # (Auto) 0.01 0-0.5 K/uL Basophils # (Auto) 0.01 0-0.2 K/uL RDW Standard Deviation 45.5 36.4-46.3 fL RDW Coefficient of Variation 13.3 11.5-14.5 % Immature Granulocyte % (Auto) 0.1 % Immature Granulocyte # (Auto) 0.01 0.00-0.02 K/uL Prothrombin Time 10.0 9.0-12.0 SECONDS Prothromb Time International Ratio 0.9 0.9-1.1 Activated Partial Thromboplast Time 29.3 21.0-31.0 SECONDS Partial Thromboplastin Ratio 1.1 Sodium Level 129 136-145 mmol/L Potassium Level 3.4 3.5-5.1 mmol/L Chloride Level 91 98-107 mmol/L Carbon Dioxide Level 27 21-32 mmol/L Anion Gap 11.0 3-11 mmol/L Blood Urea Nitrogen 18 7-18 mg/dl Creatinine 0.72 0.60-1.20 mg/dl Est Creatinine Clear Calc Drug Dose 59.0 ml/min Estimated GFR () 87.9 Estimated GFR (Non- 75.8 BUN/Creatinine Ratio 24.8 10-20 Random Glucose 96 70-99 mg/dl Calcium Level 9.0 8.5-10.1 mg/dl Total Bilirubin 1.1 0.2-1 mg/dl Direct Bilirubin 0.3 0-0.2 mg/dl Aspartate Amino Transf (AST/SGOT) 39 15-37 U/L Alanine Aminotransferase (ALT/SGPT) 39 12-78 U/L Alkaline Phosphatase 66 45-117 U/L Total Creatine Kinase 576 26-192 U/L Creatine Kinase MB 12.1 0.5-3.6 ng/ml Creatine Kinase MB Ratio 2.1 0-3.0 Troponin I < 0.015 0-0.045 ng/ml Total Protein 7.0 6.4-8.2 gm/dl Albumin 3.7 3.4-5.0 gm/dl Thyroid Stimulating Hormone (TSH) 1.100 0.300-4.500 uIu/ml Microbiology Results 02/09/17 Urine Culture, Received Pending Diagnostic Radiology CT HEAD WITHOUT CONTRAST (CT) FINDINGS: Again evident is a 41 mm extra-axial left frontal temporal mass. There is extensive left hemispheric vasogenic edema. There is 7 mm of left to right midline shift. There is effacement of the left lateral ventricle. There is no acute hemorrhage. No calvarial fractures are visualized. There is a right parietal scalp edema. There is no evidence of pathologic ventricular dilatation. There is no evidence of acute sinusitis IMPRESSION: 1. Stable left frontotemporal extra-axial mass. There is extensive left hemispheric vasogenic edema and 7 mm of left to right midline shift. 2. Right parietal scalp edema. 3. No evidence of acute hemorrhage EKG Poor data quality, interpretation may be adversely affected Sinus rhythm with 1st degree A-V block Voltage criteria for left ventricular hypertrophy Abnormal ECG When compared with ECG of 13-MAY-2013 14:22, WA interval has increased Impression Assessment and Plan Ms. Dodd is an 86 y/o female with PMHx of Meningioma and HTN who presents due to a unwitnessed fall today. Patient is a resident of the [facility] at [facility]. Patient is alert and oriented but a poor historian as she is fixated on the events of the day and hard to redirect. She has had 2 falls (February 08 and ) that she cannot recall precipitating factors or recall of events. Syncope and Collapse with Multiple Unwitnessed Falls: - Suspect this is progression of meningioma and cerebral edema but will R/O other causes - Admit to tele monitoring for rhythm assessment and serial cardiac enzymes - Had echocardiogram in October 2016 -- EF 55-60% and grade I diastolic dysfunction Posterior Head Laceration: 8 Elal placed 02/09 - Keep the area clean and dry Meningioma with Cerebral Edema: - Discussed with patient and daughter who are in agreement that no surgical intervention/procedure is wanted - Daughter fully aware of chronic and progressive nature of this condition and explained to patient that this will continue to be ongoing - Decadron 10 mg daily and may benefit from continued steroid therapy - Can consider neurology consult for recommendations of symptom management - ongoing steroids for edema? would suspect limited intervention? Hyponatremia: - Suspect possible SIADH given meningioma but patient appears dry and urine dark in color - Hydrate with NSS 80 mL/hr and monitor overnight and evaluate osms and random Na for possible fluid restriction Possible UTI: - Unable to get a hold of [facility] to confirm Abx - will monitor - she is currently afebrile and without leukocytosis - Will await UA sample which may be unremarkable since she was on Abx HTN: - Losartan 100 mg daily and Metoprolol 50 mg daily DVT Prophylaxis: CORY/SCDs; avoid chemical prophylaxis due to head laceration Code Status: DO NOT RESUSCITATE Disposition: - PT/OT evaluations - discussed with daughter that independent living may not be the best choice for patient given falls which may be related to this meningioma but will await further monitoring to identify other cause of these falls - Daughter Vanessa (Radiologist) from [place] is POA - [phone] - called and updated her and is in agreement of current plan and is grateful for updates Resident Physician Supervision Note: I was present with the PA during the history and exam. I discussed the case with the PA , pt and relative at bedside and agree with the findings and plan as documented in the note. Any exceptions or clarifications are listed here: 86 y/o F documented meningioma with mass effect - has not wanted any intervention. She has been suffering intermittent confusion, memory and speech impairment although she is fully oriented and has full comprehension. She presents following a syncopal episode where she was found on the floor of the [facility] [employer] garbage room. She does not recall how she arrived there - she did suffer a posterior head lac. OE AAOx s - difficulty with speech - degree of ataxia S1,2 R CTAB Nt, ND No CCE Speech and coordination deficits are present Laceration present at R post of head P: -As she does not want any intervention we will place her Decadron to determine of this leads to general improvement - we are presuming that the syncopal episodes are related to increased intracranial pressure, however, she will be monitored on telemetry for arrhythmias as an alternate diagnosis -We can continue Losartan for HTN -Neuro can be consulted if the Decadron has a desired effect as she would likely need follow-up for long-term use Documented By: Rush Lin Level of Care Telemetry Resuscitation Status DO NOT RESUSCITATE VTE Prophylaxis VTE Risk Assessment Done? Y/N: Yes Risk Level: Moderate Given or contraindicated: T.E.D. Stockings, SCD's
[2017-02-09] MEDS ORDERED: DEXAMETHASONE INJ 10 MG in SYRINGE 0 ML IV STA (15:25)
[2017-02-09] MEDS ORDERED: IV FLUIDS COMPLETED PRN ×2 (15:30→17:00)
[2017-02-09 15:42] LABS: MANUAL MICROSCOPIC REQUIRED? NO; REVIEW REQ? NO; URINE NITRITE NEG (NEG)
--- NOTE | 2017-02-09 15:52 | EMERGENCY ROOM VISIT NOTE ---
History Report prepared by Darryl: Irma Egan Under the Supervision of: Dr. Sebastian Fraga M.D. First contact with patient: 11:57 Chief Complaint: FALL Stated Complaint: FALL/ HEAD LAC/ [place] History of Present Illness The patient is a 86 year old female who presents to the Emergency Room with complaints of a fall today. Per her cousin, the patient lives in the [facility] of [facility] and that she was found in the garbage room on the ground today. The patient reports that she does not remember falling , but is aware that she is in the hospital. She complains of a headache, whole body weakness, neck pain, lower back pain, and urinary symptoms. She states that she is on an antibiotic for a UTI. The patient denies nausea, chest pain, shortness of breath, abdominal pain, fevers, and cold-like symptoms. She also denies having hip, arm, and leg pain. Limited HPI due the nature of injury. Source of History: patient, family (cousin) History Limited By: other (nature of injury) Onset: today Position: other (global) Quality: other (fall) Timing: resolved Associated Symptoms: + headache, + neck pain, + back pain (lower), + urinary symptoms, + weakness (whole body), No fevers, No chest pain, No nausea Note: patient also denies: hip, arm, and leg pain; cold-like symptoms Review of Systems See HPI for pertinent positives & negatives. A total of 10 systems reviewed and were otherwise negative. Past Medical & Surgical Medical Problems: (1) Arthritis (2) Hypertension (3) Syncope and collapse Family History No pertinent family history Social History Smoking Status: Never Smoker Alcohol Use: none Drug Use: none Marital Status: Housing Status: assisted living Occupation Status: retired Current/Historical Medications Scheduled Aspirin (Aspir-81), 1 TAB PO MWF Cholecalciferol (Vitamin D3), 2 TABS PO DAILY Clonazepam (Klonopin), 0.5 MG PO HS Gabapentin (Neurontin), 100 MG PO DAILY Hydrochlorothiazide (Hctz), 25 MG PO DAILY Losartan Potassium (Cozaar), 100 MG PO DAILY Metoprolol Succ (Toprol Xl) (Toprol-Xl), 50 MG PO DAILY Penciclovir (Denavir), 1 APPLN TOP Q2H Potassium Chloride (Micro-K Ext Rel), 10 MEQ PO DAILY Scheduled PRN Acetaminophen (Tylenol), 1,000 MG PO Q6H PRN for Pain or Fever Clonazepam (Klonopin), 0.5 TAB PO DAILY@0000 PRN for Insomnia Docusate Sodium (Colace), 1 CAP PO UD PRN for Constipation Allergies Coded Allergies: Lorazepam (Verified Allergy, Unknown, unknown, 02/09/17) Physical Exam Vital Signs Date Time Temp Pulse Resp B/P (MAP) Pulse Ox O2 Delivery O2 Flow Rate FiO2 02/09/17 15:13 89 17 135/83 98 Room Air 02/09/17 13:46 67 02/09/17 13:40 69 20 161/85 95 Room Air 02/09/17 11:43 36.7 63 18 174/70 95 Room Air Physical Exam Constitutional: Vital signs reviewed. Eyes: Pupils are equal round reactive to light. Conjunctiva are noninjected. ENT: Pharynx is clear without erythema or exudate. Mucous membranes are moist. Mild midline tenderness to cervical spine. No step-off. Posterior scalp laceration measuring 3 x 4 x 1 cm. It is stellate in shape . Respiratory: Clear to auscultation bilaterally. Breath sounds are equal bilaterally. Cardiovascular: Regular rate and rhythm. No rubs or gallops. GI: Soft, nondistended and nontender. Bowel sounds are present. Musculoskeletal: No peripheral edema. No lower extremity tenderness. No hip tenderness, full ROM. Integumentary: No cyanosis. Neurological: The patient is awake and alert. Cranial nerves II-XII are intact. Motor is 5 out of 5 all extremities. Sensation is intact to light touch all extremities. Normal speech. No pronator drift. Psychiatric: Normal affect. Medical Decision & Procedures ER Provider Diagnostic Interpretation: CT results as stated below per my review and radiologist interpretation. LUMBAR SPINE WITHOUT CT DOSE: HISTORY: Trauma eval for fx TECHNIQUE: Multiaxial CT images of the lumbar spine were performed and reformatted in the sagittal and coronal plane without the use of contrast. COMPARISON: None. FINDINGS: No fractures. No subluxation. Paraspinal soft tissues are unremarkable. Generalized degenerative change throughout. IMPRESSION: No fractures within the lumbar spine. Generalized degenerative change The above report was generated using voice recognition software. It may contain grammatical, syntax or spelling errors. Electronically signed by: Bro Munoz M.D. 02/09/2017 1:25 PM Dictated Date/Time: 02/09/2017 1:[address] results as stated below per my review and radiologist interpretation. CT HEAD WITHOUT CONTRAST (CT) CLINICAL HISTORY: Change in mental status extra-axial mass. TRAUMA COMPARISON STUDY: 02/08/2017 TECHNIQUE: Axial CT of the brain is performed from the vertex to the skull base. IV contrast was not administered for this examination. CT DOSE: k FINDINGS: Again evident is a 41 mm extra-axial left frontal temporal mass. There is extensive left hemispheric vasogenic edema. There is 7 mm of left to right midline shift. There is effacement of the left lateral ventricle. There is no acute hemorrhage. No calvarial fractures are visualized. There is a right parietal scalp edema. There is no evidence of pathologic ventricular dilatation. There is no evidence of acute sinusitis IMPRESSION: 1. Stable left frontotemporal extra-axial mass. There is extensive left hemispheric vasogenic edema and 7 mm of left to right midline shift. 2. Right parietal scalp edema. 3. No evidence of acute hemorrhage Electronically signed by: Usman Forbes M.D. 02/09/2017 1:23 PM Dictated Date/Time: 02/09/2017 1:[address] results as stated below per my review and radiologist interpretation. CERVICAL SPINE W/O CT DOSE: HISTORY: Trauma eval for fx TECHNIQUE: Multiaxial CT images of the cervical spine were performed and reformatted in the sagittal and coronal plane without the use of contrast. COMPARISON: None. FINDINGS: No fractures. No subluxation. Prevertebral soft tissues and the C1-C2 interval are intact. No pneumothorax. Generalized moderate degenerative change IMPRESSION: No fractures within the cervical spine. The above report was generated using voice recognition software. It may contain grammatical, syntax or spelling errors. Electronically signed by: Bro Munoz M.D. 02/09/2017 1:21 PM Dictated Date/Time: 02/09/2017 1:20 PM X-ray results as stated below per interpretation by me and the radiologist: CHEST ONE VIEW PORTABLE CLINICAL HISTORY: fall eval for pnea trauma COMPARISON STUDY: 02/08/2017 FINDINGS: Chronic parenchymal prominence left lung base. No acute infiltrate. Mild stable cardiomegaly. IMPRESSION: Chronic change. No acute process. Electronically signed by: Bro Munoz M.D. 02/09/2017 3:01 PM Dictated Date/Time: 02/09/2017 3:00 PM Laboratory Results 02/09/17 12:30 Red Blood Count 4.60, Mean Corpuscular Volume 93.0, Mean Corpuscular Hemoglobin 32.4, Mean Corpuscular Hemoglobin Concent 34.8, Mean Platelet Volume 9.7, Neutrophils (%) (Auto) 83.8, Lymphocytes (%) (Auto) 7.6, Monocytes (%) (Auto) 8.3, Eosinophils (%) (Auto) 0.1, Basophils (%) (Auto) 0.1, Neutrophils # (Auto) 6.18, Lymphocytes # (Auto) 0.56, Monocytes # (Auto) 0.61, Eosinophils # (Auto) 0.01, Basophils # (Auto) 0.01 02/09/17 12:30 Test 02/09/17 12:30 02/09/17 14:57 02/09/17 15:02 White Blood Count 7.38 K/uL (4.8-10.8) Red Blood Count 4.60 M/uL (4.2-5.4) Hemoglobin 14.9 g/dL (12.0-16.0) Hematocrit 42.8 % (37-47) Mean Corpuscular Volume 93.0 fL (80-100) Mean Corpuscular Hemoglobin 32.4 pg (25-34) Mean Corpuscular Hemoglobin Concent 34.8 g/dl (32-36) Platelet Count 280 K/uL (130-400) Mean Platelet Volume 9.7 fL (7.4-10.4) Neutrophils (%) (Auto) 83.8 % Lymphocytes (%) (Auto) 7.6 % Monocytes (%) (Auto) 8.3 % Eosinophils (%) (Auto) 0.1 % Basophils (%) (Auto) 0.1 % Neutrophils # (Auto) 6.18 K/uL (1.4-6.5) Lymphocytes # (Auto) 0.56 K/uL (1.2-3.4) Monocytes # (Auto) 0.61 K/uL (0.11-0.59) Eosinophils # (Auto) 0.01 K/uL (0-0.5) Basophils # (Auto) 0.01 K/uL (0-0.2) RDW Standard Deviation 45.5 fL (36.4-46.3) RDW Coefficient of Variation 13.3 % (11.5-14.5) Immature Granulocyte % (Auto) 0.1 % Immature Granulocyte # (Auto) 0.01 K/uL (0.00-0.02) Prothrombin Time 10.0 SECONDS (9.0-12.0) Prothromb Time International Ratio 0.9 (0.9-1.1) Activated Partial Thromboplast Time 29.3 SECONDS (21.0-31.0) Partial Thromboplastin Ratio 1.1 Anion Gap 11.0 mmol/L (3-11) Est Creatinine Clear Calc Drug Dose 59.0 ml/min Estimated GFR () 87.9 Estimated GFR (Non- 75.8 BUN/Creatinine Ratio 24.8 (10-20) Calcium Level 9.0 mg/dl (8.5-10.1) Total Bilirubin 1.1 mg/dl (0.2-1) Direct Bilirubin 0.3 mg/dl (0-0.2) Aspartate Amino Transf (AST/SGOT) 39 U/L (15-37) Alanine Aminotransferase (ALT/SGPT) 39 U/L (12-78) Alkaline Phosphatase 66 U/L (45-117) Total Creatine Kinase 576 U/L (26-192) Creatine Kinase MB 12.1 ng/ml (0.5-3.6) Creatine Kinase MB Ratio 2.1 (0-3.0) Troponin I < 0.015 ng/ml (0-0.045) Total Protein 7.0 gm/dl (6.4-8.2) Albumin 3.7 gm/dl (3.4-5.0) Thyroid Stimulating Hormone (TSH) 1.100 uIu/ml (0.300-4.500) Urine Color DK YELLOW Urine Appearance CLEAR (CLEAR) Urine pH 7.5 (4.5-7.5) Urine Specific [place] 1.015 (1.000-1.030) Urine Protein NEG (NEG) Urine Glucose (UA) NEG (NEG) Urine Ketones NEG (NEG) Urine Occult Blood NEG (NEG) Urine Nitrite NEG (NEG) Urine Bilirubin NEG (NEG) Urine Urobilinogen NEG (NEG) Urine Leukocyte Esterase NEG (NEG) Urine WBC (Auto) 0 /hpf (0-5) Urine RBC (Auto) 0-4 /hpf (0-4) Urine Hyaline Casts (Auto) 1-5 /lpf (0-5) Urine Epithelial Cells (Auto) 0-5 /lpf (0-5) Urine Bacteria (Auto) NEG (NEG) Laboratory results as reviewed by me. Procedure Location: Scalp Total length: 3 x 4 x 1 cm Complexity: Simple Verbal consent was obtained after the risks and benefits were explained, including but not limited to bleeding, scarring, infection, pain, and bone/joint /nerve damage. At this time, the risks of the procedure are less than the risks of NOT performing the procedure. A time out was taken and the correct patient and site identified. The target area was anesthetized with 4 ml of 1% lidocaine without epinephrine. Copious irrigation was performed using normal saline. The skin was re-prepped and a sterile field set. The wound was explored for foreign bodies and none found. Examination revealed no injury to deep structures such as tendons, bone, or significant blood vessels. Debridement was not performed. The wound edges were approximated using 8 skin rosamaria. Hemostasis and excellent approximation was achieved. Antibacterial ointment and a sterile dressing applied. No complications and the patient tolerated the procedure well. ECG Indication: other (fall ) Rate (beats per minute): 63 Rhythm: sinus rhythm Findings: 1st degree AV block, no acute ischemic change, no ectopy ED Course 1210: The patient was evaluated in room A12. A complete history and physical exam was performed. 1230: Ordered Lidocaine HCl 20 ml INFIL. 1340: I talked to the patient and her cousin. She states that she is unwilling to undergo any surgery for her head. 1415: I spoke with Nona Barnett PA-C who is Dr. Lin's PA. We discussed the patient and her results. The patient will be further evaluated by Nona. Medical Decision This is an 86-year-old female who presents with a fall. Differential diagnosis includes intracranial hemorrhage, contusion, concussion, skull fracture, cervical fracture, metabolic derangement, rhabdomyolysis, UTI. I did perform a limited focused review of portions of the patient's old chart on the electronic medical record. The patient was seen here yesterday for a fall from [facility]. She had a UTI and was discharged back after a workup i n the ED. The patient also has a brain tumor for 2 years. Medication Reconciliation: I attest that I have personally reviewed the patient' s current medication list. Blood Pressure Screening: Patient was found to have an elevated blood pressure and was referred to their primary doctor for recheck and further treatment. I did evaluate the patient as noted above. The patient does not remember falling at all. I did obtain additional history from the patient's cousin and the nurse. She was found in the garbage. She complains of a headache and generalized weakness. She also has some neck and low back pain. IV access was established. The patient was placed on a continuous director cardiac. I did order and personally review the patient's 12-lead EKG and chest x-ray as described above. I did order and review the patient's blood work as noted in the electronic medical record. She is hyponatremic and hypokalemic. I did order a CT of the head and cervical spine and lumbar spine. I did review the images myself as well as the radiology report as described above. The patient has vasogenic edema and a stable brain mass. Because this is her second fall in 24 hours I feel she will need to be hospitalized. The test results were discussed with the patient and her cousin. The patient states that she does not wish to have any surgery for her brain tumor. She will be hospitalized for correction of her electrolytes and steroids to help reduce vasogenic edema. Her laceration was repaired by Dr. Ward Billingsley, PGY 2, under my direct supervision. I was present for all critical portions of the procedure. I did discuss the case with the hospitalist and behavioral health case manager. Consults Time Called: [phone] Consulting Physician: Nona Barnett PA-C of Dr. Lin Returned Call: 1414 I spoke with Nona Barnett PA-C who is Dr. Lin's PA. We discussed the patient and her results. The patient will be further evaluated by Nona. Impression Primary Impression: Acute head injury Additional Impressions: Scalp laceration Brain tumor Fall Hyponatremia Hypokalemia Vasogenic cerebral edema Scribe Attestation The scribe's documentation has been prepared under my direct and personally reviewed by me in its entirety. I confirm that the note above accurately reflects all work, treatment, procedures, and medical decision making performed by me. Departure Information Dispostion Being Evaluated By Hospitalist Referrals Eulogio Wisdom (PCP) Patient Instructions My [facility] Problem Qualifiers Primary Impression: Acute head injury Encounter type: initial encounter Qualified Codes: S09.90XA - Unspecified injury of head, initial encounter Additional Impressions: Scalp laceration Encounter type: initial encounter Qualified Codes: S01.01XA - Laceration without foreign body of scalp, initial encounter Fall Encounter type: initial encounter Qualified Codes: W19.XXXA - Unspecified fall, initial encounter
[2017-02-09 16:15] VITALS: BP 176/84; PULSE 67; TEMP 36.3; O2SAT 98; Ht 165.1 cm; Wt 81.0 kg
[2017-02-09] MEDS: SODIUM CHLORIDE 0.9% 1000ML 1,000 ML IV SCH (17:39)
[2017-02-09] MEDS ORDERED: PNEUMOCOCCAL ADMINISTRATION CHARGE ONE (18:00)
[2017-02-09] MEDS ORDERED: PNEUMOCOCCAL POLYSACCHARIDES 25 MCG/0.5 ML VIAL/SYR IM. ONE (18:00)
[2017-02-09] MEDS: ACETAMINOPHEN 325 MG TAB PO PRN (19:10)
[2017-02-09 19:25] VITALS: BP 162/77; PULSE 59; TEMP 36.5; O2SAT 95
[2017-02-09] MEDS: CLONAZEPAM 0.5 MG TAB PO SCH (20:57)
[2017-02-09] MEDS ORDERED: CLONAZEPAM 0.5 MG TAB PO SCH (21:00)
[2017-02-09 23:15] VITALS: BP 127/72; PULSE 59; TEMP 36.7; O2SAT 95
[2017-02-10] VITALS (7 sets, daily range): BP systolic 112–171; BP diastolic 65–73; PULSE 59–73; TEMP 36.5–36.9; O2SAT 92–99
[2017-02-10] MEDS: SODIUM CHLORIDE 0.9% 1000ML 1,000 ML IV SCH ×2 (04:06→19:34)
[2017-02-10 05:35] LABS: HEMATOCRIT 37.6 % (37-47); MEAN CELL VOLUME 90.6 fL (80-100); MEAN CORPUSCULAR HGB CONC 36.4 g/dl (32-36); MEAN PLATELET VOLUME 9.2 fL (7.4-10.4); PLATELET COUNT 272 K/uL (130-400); RED BLOOD COUNT 4.15 M/uL (4.2-5.4)
[2017-02-10 06:08] LABS: BUN/CREATININE RATIO 26.2 (10-20); CALCIUM 8.1 mg/dl (8.5-10.1); CREATININE 0.55 mg/dl (0.60-1.20); MAGNESIUM 1.8 mg/dl (1.8-2.4); POTASSIUM 3.2 mmol/L (3.5-5.1)
[2017-02-10] MEDS: GABAPENTIN 100 MG CAP PO SCH (08:26)
[2017-02-10] MEDS: METOPROLOL SUCC 50MG EXT REL TAB PO SCH (08:26)
[2017-02-10] MEDS: LOSARTAN POTASSIUM 50 MG TAB PO SCH (08:27)
[2017-02-10] MEDS ORDERED: POTASSIUM CHLORIDE 20 MEQ TABCR PO ONE (08:30)
--- NOTE | 2017-02-10 10:21 | Neurology Consultation ---
Neurology Consultation Date of Consultation: Feb 10, 2017. Attending Physician: Rush Lin M.D. Primary Care Physician: Eulogio Wisdom Reason for Consultation: Patient is an 86-year-old, was asked to see the request of Amina Noyola PA-C and Dr. Sinclair, for neurologic consultation regarding meningioma and other issues. History of Present Illness Source: patient, family, caregiver, clinic records, hospital records The patient fell in the summer of 2010. A CT scan of the head showed a meningioma. It was rather large with edema and midline shift. She had consultation with multiple physicians and the decision was made to not operate due to risk factors and patient preference. This had been followed closely for the first 4 years and then somewhat intermittently since. There was always decisions to not treat with surgery. The patient saw Dr. Monreal in 2013. An EEG in July 2014 showed some focal slowing over the left hemisphere maximal in the temporal region where the tumor is, but no potentially epileptogenic discharges were seen. Her most recent MRI was in July 2012 and showed a large left meningioma with significant edema, mass effect and 7 mm midline shift from left to right. Clinically the patient has done fairly well although over the last 18 months she is certainly had a gradual worsening of cognitive status, word finding, and general functioning. She will occasionally have some aphasia and occasionally have headaches. She occasionally gets dizzy. On February 07, she was diagnosed with urinary tract infection and put on antibiotics On February 08 she felt lightheaded and fell. She tells me she immediately got up and ended up hitting her head lacerating posterior portion requiring sutures. She's had some headache and neck pain since. She came to the emergency room February 09. On February 09, at 1143 hours, temperature 36.7, pulse 63 and regular, respiratory rate 18, blood pressure 174/70, and O2 saturation 95%. In the emergency room she was noted to have confusion with no other focal neurologic findings. CT scan of the lumbar spine was unremarkable (she was having some low back pain ) 6. CT scan of the cervical spine was unremarkable without fracture. CT scan of the head showed a 41 mm (sees widest diameter) in his left frontotemporal mass with considerable edema and a 7 mm midline shift. Chest x-ray was unremarkable. CBC was unremarkable and a sodium was low at 129. Today's sodium was 131. There was some elevated liver enzymes. This morning, she has no headache. She is not dizzy. She has no weakness or numbness in the arms or legs. She has no vision symptoms. During a telephone conversation with the patient's daughter Vanessa, who is power of tax associate attorney, I was informed that the patient has been having episodes intermittently for the last 2 years consisting of the onset of confused/ gibberish speech lasting a few seconds then a lack of speech and blank look to the face lasting 45 seconds to a minute. She isn't back to normal. She has no recall of the episodes. Was they were occurring once every few months, they're now occurring about once a week. Past Medical/Surgical History Medical Problems: (1) Acute head injury Status: Acute (2) Altered mental status Status: Acute (3) Brain tumor Status: Acute (4) Fall Status: Acute (5) Fall Status: Acute (6) Hypokalemia Status: Acute (7) Hyponatremia Status: Acute (8) Scalp laceration Status: Acute (9) Vasogenic cerebral edema Status: Acute Hypertension Osteoarthritis Decreased hearing bilaterally of a significant nature, requiring hearing aids Insomnia Post bilateral hip replacements Post right total knee replacement Post bilateral cataract surgery Family History Mother age 96 with heart issues Father in his 60s of an [place] Social History Patient never smoked cigarettes. She does not use alcohol. 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 [facility] She has 4 children and 6 grandchildren Smoking Status: Never smoker Smokeless Tobacco Use: No Alcohol Use: none Drug Use: none Marital Status: Housing Status: assisted living Occupation Status: retired Allergies Coded Allergies: Lorazepam (Verified Allergy, Unknown, unknown, 02/09/17) Current Inpatient Medications Current Inpatient Medications Medications (Trade) Dose Ordered Sig/Silvia Route Start Time Stop Time Status Last Admin Dose Admin Sodium Chloride 1,000 ml @ 80 mls/hr [id number] IV 02/09/17 16:30 03/11/17 16:29 02/10/17 04:06 80 MLS/HR Acetaminophen (Tylenol Tab) 650 mg Q4H PRN PO 02/09/17 15:15 03/11/17 15:14 02/09/17 19:10 650 MG Al Hydrox/Mg Hydrox/Simethicone (Maalox Max Susp) 15 ml Q4H PRN PO 02/09/17 15:15 03/11/17 15:14 Magnesium Hydroxide (Milk Of Magnesia Susp) 30 ml Q12H PRN PO 02/09/17 15:15 03/11/17 15:14 Ondansetron HCl (Zofran Inj) 4 mg Q6H PRN IV 02/09/17 15:15 03/11/17 15:14 Polyethylene (Miralax Powder Packet) 17 gm DAILY PRN PO 02/09/17 15:15 03/11/17 15:14 Docusate Sodium (coLACE CAP) 100 mg DAILY PRN PO 02/09/17 15:15 03/11/17 15:14 Gabapentin (Neurontin Cap) 100 mg DAILY PO 02/10/17 09:00 03/12/17 08:59 02/10/17 08:26 100 MG Losartan Potassium (coZAAR TAB) 100 mg DAILY PO 02/10/17 09:00 03/12/17 08:59 02/10/17 08:27 100 MG Metoprolol Succinate (Toprol Xl Tab) 50 mg DAILY PO 02/10/17 09:00 03/12/17 08:59 02/10/17 08:26 50 MG Miscellaneous Information (Order Awaiting Action) 1 ea QS N/A 02/09/17 16:00 03/11/17 15:59 Miscellaneous (Iv Fluids Completed) 1 ea PRN PRN N/A 02/09/17 15:30 02/09/18 15:29 Miscellaneous (Iv Fluids Completed) 1 ea PRN PRN N/A 02/09/17 17:00 02/09/18 16:59 Clonazepam (Klonopin Tab) 0.5 mg HS PO 02/09/17 21:00 03/11/17 20:59 02/09/17 20:57 0.5 MG Review of Systems Constitutional: No weakness, No fatigue Eyes: No worsening of vision, No diplopia ENT: + hearing loss, No tinnitus Respiratory: No cough, No shortness of breath Cardiovascular: No chest pain, No palpitations Abdomen: No pain, No nausea Musculoskeletal: + joint pain, No muscle pain Genitourinary - Female: No dysuria, No urinary incontinence Neurologic: + memory loss, No weakness, No numbness/tingling, No vertigo Psychiatric: No depression symptoms, No anxiety Endocrine: No fatigue Hematologic / Lymphatic: No abnormal bleeding/bruising Integumentary: No rash Allergic / Immunologic: No hives Physical Exam Vital Signs (Past 24 Hrs): Date Time Temp Pulse Resp B/P (MAP) Pulse Ox O2 Delivery O2 Flow Rate FiO2 02/10/17 07:24 36.9 70 20 163/65 (97) 92 Room Air 02/10/17 04:00 Room Air 02/10/17 02:58 36.5 59 18 112/70 (84) 95 Room Air 02/10/17 00:00 Room Air 02/09/17 23:15 36.7 59 18 127/72 (90) 95 Room Air 02/09/17 20:00 Room Air 02/09/17 19:25 36.5 59 20 162/77 (105) 95 Room Air 02/09/17 16:15 36.3 67 17 176/84 98 Room Air 02/09/17 15:58 89 17 135/83 98 02/09/17 15:13 89 17 135/83 98 Room Air 02/09/17 13:46 67 02/09/17 13:40 69 20 161/85 95 Room Air 02/09/17 11:43 36.7 63 18 174/70 95 Room Air Patient is right-handed. The patient is awake and alert. Speech is without significant aphasia or dysarthria.. Mentation and thought processes reveal some problems with short and longer term memory. However, she is pleasant and cooperative. Her mood is good and her affect is appropriate. Appearance and grooming are normal. The discs are somewhat difficult to visualize but seemed sharp. Pupils are 3mm bilaterally and reactive to light. Extraocular eye muscles are intact without nystagmus. Visual acuity and visual benson seem normal grossly to confrontation. There are no deficits to sensation of the face bilaterally. Corneal reflexes are positive bilaterally. Facial strength and symmetry is normal bilaterally. Hearing is decreased bilaterally. Palate moves well without asymmetry. There is normal sternocleidomastoid and trapezius strength bilaterally. Tongue is midline with good strength bilaterally. Neck is with full range of motion without discomfort. There are no cervical bruits. There are no cranial or ocular bruits. Heart is without murmur. Cervical, thoracic, and lumbar spine are nontender to palpation. Gait is is not tested but stance sitting up in bed is normal With outstretched arms there is no drift. There are no resting tremors. There is very mild postural and action tremor right greater than left hand. There is no ataxia with [id number] testing. There is decreased facility noted in the left hand compared to the right which seem more normal. Motor strength is 5/5 diffusely in the arms bilaterally including deltoids, biceps, brachioradialis, wrist flexors and extensors, manager actuarial, and intrinsic hand muscles. Motor strength is 5/5 diffusely in the legs bilaterally including hip flexors, quadriceps, hamstring, gastrocnemius, tibialis posterior, and peroneii muscles bilaterally. Tibialis anterior is 4/5 on the right and close to 5/5 on the left. She has mild to moderate atrophy distally symmetrically diffusely in all 4 limbs. The limbs have good tone without rigidity or spasticity. Muscle bulk is normal , there is no tenderness, no myotonia noted to percussion, and no fasciculations seen. Sensory examination is intact to pin and touch throughout all four limbs. Reflexes are 2/4 in the biceps, triceps, and brachioradialis tendons bilaterally. Quadriceps and Achilles tendon reflexes are 1/4 bilaterally. Toes are upgoing with plantar stimulation bilaterally. Peripheral pulses are present and of normal quality distally in all four limbs. There is no peripheral edema noted. Laboratory Results Past 24 Hours: 02/10/17 05:12 02/10/17 05:12 Test 02/09/17 12:30 02/09/17 14:57 02/10/17 02:51 02/10/17 05:12 Immature Granulocyte % (Auto) 0.1 % White Blood Count 7.38 K/uL (4.8-10.8) Red Blood Count 4.60 M/uL (4.2-5.4) 4.15 M/uL (4.2-5.4) Hemoglobin 14.9 g/dL (12.0-16.0) Hematocrit 42.8 % (37-47) Mean Corpuscular Volume 93.0 fL (80-100) 90.6 fL (80-100) Mean Corpuscular Hemoglobin 32.4 pg (25-34) 33.0 pg (25-34) Mean Corpuscular Hemoglobin Concent 34.8 g/dl (32-36) 36.4 g/dl (32-36) Platelet Count 280 K/uL (130-400) Mean Platelet Volume 9.7 fL (7.4-10.4) 9.2 fL (7.4-10.4) Neutrophils (%) (Auto) 83.8 % Lymphocytes (%) (Auto) 7.6 % Monocytes (%) (Auto) 8.3 % Eosinophils (%) (Auto) 0.1 % Basophils (%) (Auto) 0.1 % Neutrophils # (Auto) 6.18 K/uL (1.4-6.5) Lymphocytes # (Auto) 0.56 K/uL (1.2-3.4) Monocytes # (Auto) 0.61 K/uL (0.11-0.59) Eosinophils # (Auto) 0.01 K/uL (0-0.5) Basophils # (Auto) 0.01 K/uL (0-0.2) Immature Granulocyte # (Auto) 0.01 K/uL (0.00-0.02) Prothrombin Time 10.0 SECONDS (9.0-12.0) Prothromb Time International Ratio 0.9 (0.9-1.1) Activated Partial Thromboplast Time 29.3 SECONDS (21.0-31.0) Partial Thromboplastin Ratio 1.1 Osmolality 268 mOsm/kg (280-300) Total Bilirubin 1.1 mg/dl (0.2-1) Direct Bilirubin 0.3 mg/dl (0-0.2) Aspartate Amino Transf (AST/SGOT) 39 U/L (15-37) Alanine Aminotransferase (ALT/SGPT) 39 U/L (12-78) Alkaline Phosphatase 66 U/L (45-117) Total Creatine Kinase 576 U/L (26-192) Creatine Kinase MB 12.1 ng/ml (0.5-3.6) Creatine Kinase MB Ratio 2.1 (0-3.0) Total Protein 7.0 gm/dl (6.4-8.2) Albumin 3.7 gm/dl (3.4-5.0) Thyroid Stimulating Hormone (TSH) 1.100 uIu/ml (0.300-4.500) Urine Color DK YELLOW Urine Appearance CLEAR (CLEAR) Urine pH 7.5 (4.5-7.5) Urine Specific [place] 1.015 (1.000-1.030) Urine Protein NEG (NEG) Urine Glucose (UA) NEG (NEG) Urine Ketones NEG (NEG) Urine Occult Blood NEG (NEG) Urine Nitrite NEG (NEG) Urine Bilirubin NEG (NEG) Urine Urobilinogen NEG (NEG) Urine Leukocyte Esterase NEG (NEG) Urine WBC (Auto) 0 /hpf (0-5) Urine RBC (Auto) 0-4 /hpf (0-4) Urine Hyaline Casts (Auto) 1-5 /lpf (0-5) Urine Epithelial Cells (Auto) 0-5 /lpf (0-5) Urine Bacteria (Auto) NEG (NEG) Urine Osmolality 436 mOms/kg (500-800) Urine Random Sodium 121 mEq/L Troponin I 0.021 ng/ml (0-0.045) RDW Standard Deviation 42.5 fL (36.4-46.3) RDW Coefficient of Variation 12.8 % (11.5-14.5) Anion Gap 10.0 mmol/L (3-11) Est Creatinine Clear Calc Drug Dose 77.2 ml/min Estimated GFR () 98.4 Estimated GFR (Non- 84.9 BUN/Creatinine Ratio 26.2 (10-20) Calcium Level 8.1 mg/dl (8.5-10.1) Magnesium Level 1.8 mg/dl (1.8-2.4) Imaging CT HEAD WITHOUT CONTRAST (CT) CLINICAL HISTORY: Change in mental status extra-axial mass. TRAUMA COMPARISON STUDY: 02/08/2017 TECHNIQUE: Axial CT of the brain is performed from the vertex to the skull base. IV contrast was not administered for this examination. CT DOSE: k FINDINGS: Again evident is a 41 mm extra-axial left frontal temporal mass. There is extensive left hemispheric vasogenic edema. There is 7 mm of left to right midline shift. There is effacement of the left lateral ventricle. There is no acute hemorrhage. No calvarial fractures are visualized. There is a right parietal scalp edema. There is no evidence of pathologic ventricular dilatation. There is no evidence of acute sinusitis IMPRESSION: 1. Stable left frontotemporal extra-axial mass. There is extensive left hemispheric vasogenic edema and 7 mm of left to right midline shift. 2. Right parietal scalp edema. 3. No evidence of acute hemorrhage Electronically signed by: Usman Forbes M.D. 02/09/2017 1:23 PM Dictated Date/Time: 02/09/2017 1:20 PM Impression 1. Large left frontotemporal meningioma with considerable cerebral edema and 7 mm midline shift [id number]. This is relatively consistent with the MRI back in July 2014 (at least from the report) . This is creating cognitive and language problems. She has bilateral upgoing toes and some tremor on the right as well as a weak right foot. Clinically, she is slowly getting worse over time. I have had an extensive conversation with the patient's daughter Vanessa, who is power of tax associate attorney, at the patient's bedside in a conference mode with the patient participating. This decision stands with the patient and the patient's daughter to not do any surgical intervention. 2. Syncopal episode February 08. This may have been orthostasis related. There is been no evidence of cardiac dysrhythmia on a monitoring as an inpatient. I cannot entirely exclude partial seizure, for which she would be at risk given her meningioma. The patient has been having some unresponsive episodes which could be consistent with seizures. 3. Bilateral hearing loss, with a lateral hearing aids 4. Right upper extremity tremor. This is an essential tremor but could be related to the meningioma affects. Overall it is very mild and does not require treatment. Plan 1. Since there is absolutely no intention for surgery or any other medical treatment regarding this meningioma and its effects, according to the patient and the patient's power of tax associate attorney Vanessa): a) there is no need for additional neuroimaging studies such as an MRI b) there is no need for EEG to look for potentially epileptogenic activity c) steroids have been declined and I agree that there would be significant short and long-term side effects. At best, steroids will give temporary relief only. d) there is no need to initiate anticonvulsants. Normally I would suggest Lamictal as this does not give cognitive side effects. They want to hold off on this for now but could consider this in future, empirically 2. Physical therapy. Increase activity including ambulation but I believe this patient should not be allowed to walk on her own anymore. She is too great a fall risk. I spoke with Dr. Sinclair regarding his case including differential diagnosis and treatment plan. I have no further neurologic testing or treatment to offer this patient at this time. I would be willing to see her as an outpatient for follow-up, if desired. I spent a total of 90 minutes with direct patient care on this case including at the bedside with the patient, in conference at the patient's bedside with the power of tax associate attorney daughter, and discussion with Dr. Sinclair.
--- NOTE | 2017-02-10 10:22 | ECHOCARDIOGRAM REPORT ---
*NOTICE TO RECEIVING [employer] This information is strictly Confidential and protected under [place] law. [place] law prohibits you from making any further disclosure of this information unless further disclosure is expressly permitted by the written consent of the person to whom it pertains or is authorized by law. A general authorization for the release of medical or other information is not sufficient for this purpose. Hospital accepts no responsibility if the information is made available to any other person, INCLUDING THE PATIENT. Interpretation Summary * Name: TAYNA PERALTA Study Date: 02/10/2017 06:57 AM BP: 163/65 mmHg * Patient Location: [facility] HR: 70 * : 1930 (M/d/yyyy) Gender: Female Height: 65 in * Age: 86 yrs Ethnicity: [place] Weight: 179 lb * Ordering Physician: Nona Barnett * Referring Physician: Self, Referred * Performed By: Rayna Jon RDCS * * Reason For Study: SYNCOPE * BSA: 1.9 m2 * -- Conclusions -- * 1. Normal LV size, moderate concentric LVH. * 2. Normal LV systolic function. LVEF 65-70%. No regional wall motion abnormalities. * 3. Grade I diastolic dysfunction. * 4. Normal RV size and function. * 5. Severe LA dilation. * 6. No significant valvular pathology. * 7. Normal estimated CVP. * 8. Compared with prior study on 10/31/2016: No significant changes. Procedure Details * A complete two-dimensional transthoracic echocardiogram was performed (2D, M-mode, Doppler and color flow Doppler). Left Ventricle * The left ventricle is normal in size. * There is moderate concentric left ventricular hypertrophy. * Ejection Fraction = 65-70%. * No regional wall motion abnormalities noted. Right Ventricle * The right ventricle is grossly normal size. * The right ventricular systolic function is normal as assessed by tricuspid annular plane systolic excursion (TAPSE) (normal >1.5 cm). Atria * The left atrium is severely dilated. * Right atrial size is normal. * No ASD detected; PFO is not assessed. Mitral Valve * The mitral valve is grossly normal. * There is mild to moderate mitral annular calcification. * Mitral stenosis is absent. * There is no mitral regurgitation noted. Tricuspid Valve * The tricuspid valve is not well visualized, but is grossly normal. * There is no tricuspid stenosis. * Significant tricuspid regurgitation is absent. Aortic Valve * The aortic valve opens well. * The aortic valve is trileaflet. * No hemodynamically significant valvular aortic stenosis. * There is no significant aortic regurgitation. Pulmonic Valve * The pulmonary valve is inadequately visualized, but the Doppler data is adequate for interpretation. * There is no pulmonic valvular stenosis. * There is no significant pulmonary regurgitation. Great Vessels * The aortic root and proximal ascending aorta are normal sized. Pericardium/Pleural * There is no pericardial effusion. Great Vessels * Normal inferior vena cava size and collapsability with sniff indicates a normal right atrial pressure of 3 mmHg Left Ventricular Diastolic Function * Grade I diastolic dysfunction, (abnormal relaxation pattern). MMode 2D Measurements and Calculations IVSd 2.0 cm IVSs 2.2 cm LVIDd 3.2 cm LVIDs 2.1 cm LVPWd 2.1 cm LVPWs 1.9 cm IVS/LVPW 0.98 FS 36.4 % EDV(Teich) 42.2 ml ESV(Teich) 13.7 ml EF(Teich) 67.5 % EDV(cubed) 34.0 ml ESV(cubed) 8.7 ml EF(cubed) 74.3 % % IVS thick 10.2 % % LVPW thick -6.28 % LV mass(C)d 297.5 grams LV mass(C)dI 157.8 grams/m\S\2 LV mass(C)s 192.3 grams LV mass(C)sI 102.0 grams/m\S\2 SV(Teich) 28.5 ml SI(Teich) 15.1 ml/m\S\2 SV(cubed) 25.2 ml SI(cubed) 13.4 ml/m\S\2 Ao root diam 3.4 cm Ao root area 9.2 cm\S\2 LA dimension 3.8 cm LA/Ao 1.1 LVAd ap4 27.7 cm\S\2 LVLd ap4 7.6 cm EDV(MOD-sp4) 84.8 ml EDV(sp4-el) 85.9 ml LVAs ap4 14.0 cm\S\2 LVLs ap4 6.4 cm ESV(MOD-sp4) 26.6 ml ESV(sp4-el) 26.0 ml EF(MOD-sp4) 68.6 % EF(sp4-el) 69.8 % LVAd ap2 22.7 cm\S\2 LVLd ap2 7.0 cm EDV(MOD-sp2) 60.7 ml EDV(sp2-el) 62.3 ml LVAs ap2 12.3 cm\S\2 LVLs ap2 6.1 cm ESV(MOD-sp2) 21.1 ml ESV(sp2-el) 21.2 ml EF(MOD-sp2) 65.2 % EF(sp2-el) 66.0 % LVLd %diff -8.11 % EDV(MOD-bp) 75.2 ml LVLs %diff -5.41 % ESV(MOD-bp) 24.3 ml EF(MOD-bp) 67.6 % SV(MOD-sp4) 58.1 ml SI(MOD-sp4) 30.8 ml/m\S\2 SV(MOD-sp2) 39.6 ml SI(MOD-sp2) 21.0 ml/m\S\2 SV(MOD-bp) 50.8 ml SI(MOD-bp) 27.0 ml/m\S\2 SV(sp4-el) 60.0 ml SI(sp4-el) 31.8 ml/m\S\2 SV(sp2-el) 41.1 ml SI(sp2-el) 21.8 ml/m\S\2 Doppler Measurements and Calculations MV E max rohan 88.4 cm/sec MV A max rohan 101.9 cm/sec MV E/A 0.87 MV dec time 0.24 sec Ao V2 max 131.0 cm/sec Ao max PG 6.9 mmHg Ao max PG (full) 1.5 mmHg LV V1 max PG 5.3 mmHg LV V1 max 115.4 cm/sec TR max rohan 243.6 cm/sec
--- NOTE | 2017-02-10 12:10 | Hospitalist Progress Note ---
Hospitalist Progress Note Date of Service Feb 10, 2017. (Amina Noyola ., MAYLINC) Subjective Pt evaluation today including: conversation w/ patient, physical exam, chart review, lab review, review of studies, review of inpatient medication list Pain: None PO Intake: Tolerating PO diet Voiding: no voiding problems The patient reports feeling well. Her main complaint is of fatigue as she was not able to sleep much last night due to her roommate being loud. The patient denies increased confusion lately and denies any weakness, saying that she tries to go for a walk every day. The patient denies fevers, chills, sweats, chest pain, palpitations, claudication, cough, wheezing, shortness of breath, nausea, vomiting, abdominal pain, dysuria, hematuria, urinary retention, paralysis, weakness, numbness and tingling. Additional Comments: See HPI for pertinent positives and negatives. All other systems reviewed and negative. (Amina Noyola ., TEMO-C) Objective Vital Signs Date Time Temp Pulse Resp B/P (MAP) Pulse Ox O2 Delivery O2 Flow Rate FiO2 02/10/17 11:24 36.9 68 14 171/72 (105) 96 Room Air 02/10/17 11:17 36.9 70 20 92 02/10/17 07:24 36.9 70 20 163/65 (97) 92 Room Air 02/10/17 04:00 Room Air 02/10/17 02:58 36.5 59 18 112/70 (84) 95 Room Air 02/10/17 00:00 Room Air 02/09/17 23:15 36.7 59 18 127/72 (90) 95 Room Air 02/09/17 20:00 Room Air 02/09/17 19:25 36.5 59 20 162/77 (105) 95 Room Air 02/09/17 16:15 36.3 67 17 176/84 98 Room Air 02/09/17 15:58 89 17 135/83 98 02/09/17 15:13 89 17 135/83 98 Room Air 02/09/17 13:46 67 02/09/17 13:40 69 20 161/85 95 Room Air (Amina Noyola PA-C) Physical Exam Notes: General appearance: Well-developed, well-nourished, no apparent distress Head: +Laceration closed with rosamaria right posterior aspect of head. Not currently bleeding or with drainage. Normocephalic Eyes: Normal inspection, PERRL, EOMI ENT: +Hard of hearing. States batteries in one of her hearing aides . Normal ENT inspection, pharynx normal Neck: Supple, no JVD, trachea midline Respiratory/Chest: +Decreased breath sounds. Lungs clear to auscultation, normal breath sounds, no respiratory distress Cardiovascular: Regular rate & rhythm, no gallop, no murmur Abdomen/GI: Normal bowel sounds, non-tender, soft Extremities/Musculoskeletal: Normal inspection, no calf tenderness, no pedal edema Neurological/Psych: +Disoriented to time. Confused, is having trouble finding her words or remember what she wants to say. Alert, normal mood/affect, oriented x 2 Skin: Normal color, warm/dry, no rash (Amina Noyola, DEVANG) Laboratory Results Last 24 Hours Test 02/09/17 12:30 02/09/17 14:57 02/09/17 18:45 02/10/17 02:51 White Blood Count 7.38 K/uL Red Blood Count 4.60 M/uL Hemoglobin 14.9 g/dL Hematocrit 42.8 % Mean Corpuscular Volume 93.0 fL Mean Corpuscular Hemoglobin 32.4 pg Mean Corpuscular Hemoglobin Concent 34.8 g/dl Platelet Count 280 K/uL Mean Platelet Volume 9.7 fL Neutrophils (%) (Auto) 83.8 % Lymphocytes (%) (Auto) 7.6 % Monocytes (%) (Auto) 8.3 % Eosinophils (%) (Auto) 0.1 % Basophils (%) (Auto) 0.1 % Neutrophils # (Auto) 6.18 K/uL Lymphocytes # (Auto) 0.56 K/uL Monocytes # (Auto) 0.61 K/uL Eosinophils # (Auto) 0.01 K/uL Basophils # (Auto) 0.01 K/uL RDW Standard Deviation 45.5 fL RDW Coefficient of Variation 13.3 % Immature Granulocyte % (Auto) 0.1 % Immature Granulocyte # (Auto) 0.01 K/uL Prothrombin Time 10.0 SECONDS Prothromb Time International Ratio 0.9 Activated Partial Thromboplast Time 29.3 SECONDS Partial Thromboplastin Ratio 1.1 Sodium Level 129 mmol/L Potassium Level 3.4 mmol/L Chloride Level 91 mmol/L Carbon Dioxide Level 27 mmol/L Anion Gap 11.0 mmol/L Blood Urea Nitrogen 18 mg/dl Creatinine 0.72 mg/dl Est Creatinine Clear Calc Drug Dose 59.0 ml/min Estimated GFR () 87.9 Estimated GFR (Non- 75.8 BUN/Creatinine Ratio 24.8 Random Glucose 96 mg/dl Osmolality 268 mOsm/kg Calcium Level 9.0 mg/dl Total Bilirubin 1.1 mg/dl Direct Bilirubin 0.3 mg/dl Aspartate Amino Transf (AST/SGOT) 39 U/L Alanine Aminotransferase (ALT/SGPT) 39 U/L Alkaline Phosphatase 66 U/L Total Creatine Kinase 576 U/L Creatine Kinase MB 12.1 ng/ml Creatine Kinase MB Ratio 2.1 Troponin I < 0.015 ng/ml 0.018 ng/ml 0.021 ng/ml Total Protein 7.0 gm/dl Albumin 3.7 gm/dl Thyroid Stimulating Hormone (TSH) 1.100 uIu/ml Urine Color DK YELLOW Urine Appearance CLEAR Urine pH 7.5 Urine Specific [place] 1.015 Urine Protein NEG Urine Glucose (UA) NEG Urine Ketones NEG Urine Occult Blood NEG Urine Nitrite NEG Urine Bilirubin NEG Urine Urobilinogen NEG Urine Leukocyte Esterase NEG Urine WBC (Auto) 0 /hpf Urine RBC (Auto) 0-4 /hpf Urine Hyaline Casts (Auto) 1-5 /lpf Urine Epithelial Cells (Auto) 0-5 /lpf Urine Bacteria (Auto) NEG Urine Osmolality 436 mOms/kg Urine Random Sodium 121 mEq/L Test 02/10/17 05:12 White Blood Count 4.50 K/uL Red Blood Count 4.15 M/uL Hemoglobin 13.7 g/dL Hematocrit 37.6 % Mean Corpuscular Volume 90.6 fL Mean Corpuscular Hemoglobin 33.0 pg Mean Corpuscular Hemoglobin Concent 36.4 g/dl RDW Standard Deviation 42.5 fL RDW Coefficient of Variation 12.8 % Platelet Count 272 K/uL Mean Platelet Volume 9.2 fL Sodium Level 131 mmol/L Potassium Level 3.2 mmol/L Chloride Level 95 mmol/L Carbon Dioxide Level 26 mmol/L Anion Gap 10.0 mmol/L Blood Urea Nitrogen 14 mg/dl Creatinine 0.55 mg/dl Est Creatinine Clear Calc Drug Dose 77.2 ml/min Estimated GFR () 98.4 Estimated GFR (Non- 84.9 BUN/Creatinine Ratio 26.2 Random Glucose 127 mg/dl Calcium Level 8.1 mg/dl Magnesium Level 1.8 mg/dl (Amina Noyola, DEVANG) Diagnostic Results Interpretation Summary * Name: TANYA PERALTA Study Date: 02/10/2017 06:57 AM BP: 163/65 mmHg * Patient Location: [facility] HR: 70 * : 1930 (M/d/yyyy) Gender: Female Height: 65 in * Age: 86 yrs Ethnicity: CA Weight: 179 lb * Ordering Physician: Nona Barnett * Referring Physician: Self, Referred * Performed By: Rayna Jon RDCS * * Reason For Study: SYNCOPE * BSA: 1.9 m2 * -- Conclusions -- * 1. Normal LV size, moderate concentric LVH. * 2. Normal LV systolic function. LVEF 65-70%. No regional wall motion abnormalities. * 3. Grade I diastolic dysfunction. * 4. Normal RV size and function. * 5. Severe LA dilation. * 6. No significant valvular pathology. * 7. Normal estimated CVP. * 8. Compared with prior study on 10/31/2016: No significant changes. Procedure Details * A complete two-dimensional transthoracic echocardiogram was performed (2D, M-mode, Doppler and color flow Doppler). Left Ventricle * The left ventricle is normal in size. * There is moderate concentric left ventricular hypertrophy. * Ejection Fraction = 65-70%. * No regional wall motion abnormalities noted. Right Ventricle * The right ventricle is grossly normal size. * The right ventricular systolic function is normal as assessed by tricuspid annular plane systolic excursion (TAPSE) (normal >1.5 cm). Atria * The left atrium is severely dilated. * Right atrial size is normal. * No ASD detected; PFO is not assessed. Mitral Valve * The mitral valve is grossly normal. * There is mild to moderate mitral annular calcification. * Mitral stenosis is absent. * There is no mitral regurgitation noted. Tricuspid Valve * The tricuspid valve is not well visualized, but is grossly normal. * There is no tricuspid stenosis. * Significant tricuspid regurgitation is absent. Aortic Valve * The aortic valve opens well. * The aortic valve is trileaflet. * No hemodynamically significant valvular aortic stenosis. * There is no significant aortic regurgitation. Pulmonic Valve * The pulmonary valve is inadequately visualized, but the Doppler data is adequate for interpretation. * There is no pulmonic valvular stenosis. * There is no significant pulmonary regurgitation. Great Vessels * The aortic root and proximal ascending aorta are normal sized. Pericardium/Pleural * There is no pericardial effusion. Great Vessels * Normal inferior vena cava size and collapsability with sniff indicates a normal right atrial pressure of 3 mmHg Left Ventricular Diastolic Function * Grade I diastolic dysfunction, (abnormal relaxation pattern). (Amina Noyola ., PA-C) Assessment and Plan 86 y/o female with a history of Meningioma and HTN who presents due to syncope and a unwitnessed fall. Patient is a resident of the [facility] living at [facility]. She has had 2 falls (February 08 and ) that she cannot recall precipitating factors or recall of events. Syncope and Collapse with Multiple Unwitnessed Falls--stable -Admit to [facility] for cardiac monitoring. No acute events overnight. Pt remained in sinus rhythm with heart rate 60s-80s. Transfer to med/surg 02/10 -Troponin negative x 3 -Repeat echo shows LVEF of 65-70%, grade I diastolic dysfunction and severely dilated left atrium. No significant changes from previous study. -PT/OT evaluate and treat -Likely secondary to progressive meningioma w/edema and midline shift -Posterior head lac clean and dry. Kingsley placed 02/09 Meningioma with Cerebral Edema and midline shift--stable -Neurology consulted, appreciate recs: family/patient does not desire any surgical intervention and is declining steroids and anticonvulsant therapy at this time. May consider anticonvulsants in the future but will hold off for now. No need for further neuroimaging or EEG. Recommend physical therapy but do not recommend allowing patient to ambulate alone due to fall risk. -D/C Decadron -May need to consider palliative care in the future Hyponatremia--improving -Serum osm low at 268, urine osm low at 436 -Random urine sodium WNL -Sodium improved to 131 on 02/10, up from 129 -Hold HCTZ ?UTI POA -Denies urinary symptoms. Afebrile, no leukocytosis -UA negative, although pt had been treated with abx at [facility] -Urine culture pending -Hold off abx for now HTN--stable -Continue Losartan 100 mg daily and Metoprolol 50 mg daily DVT prophylaxis -CORY [place] and SCDs Code Status -Level V, DO NOT RESUSCITATE Dispo -Pt from [facility] independent [facility] -PT/OT pending, likely will need higher level of care due to multiple falls/ syncope - Daughter Vanessa (Radiologist) from [place] is POA - [phone] (Amina Noyola, PA-C) I agree with PA assessment and plan and have seen and examined pt myself Resting comfortably in bed Intermittently confused Denies EVERETT Reviewed labs vitals and imaging CT head with meningioma and midline shift Pt and fam requests no steroids, further imaging, EEG or intervention at this time PT/OT consulted (Miguel Sinclair, D.O.)
[2017-02-10] MEDS: CLONAZEPAM 0.5 MG TAB PO SCH (21:52)
[2017-02-10] MEDS ORDERED: NURSING VERBAL MED ORDER ONE (22:45)
[2017-02-11 07:18] LABS: MEAN CELL VOLUME 90.9 fL (80-100); MEAN CORPUSCULAR HEMOGLOBIN 31.8 pg (25-34); MEAN PLATELET VOLUME 9.2 fL (7.4-10.4); PLATELET COUNT 321 K/uL (130-400); WHITE BLOOD COUNT 7.25 K/uL (4.8-10.8)
[2017-02-11 08:02] LABS: BUN/CREATININE RATIO 28.3 (10-20); CALCIUM 8.7 mg/dl (8.5-10.1); CREATININE 0.72 mg/dl (0.60-1.20); POTASSIUM 3.7 mmol/L (3.5-5.1)
--- NOTE | 2017-02-11 08:30 | Neurology Progress Notes ---
Neurology Progress Note Date of Service Feb 11, 2017. Subjective The patient has no complaint of pain or headache. She does have a little discomfort on the right side of her head at times. She has no new vision problems. She feels a little dizzy and lightheaded when she stands up but there is no vertigo. She is not having any syncopal phenomenon. Her arms and legs feel the same with no new weakness or numbness. Echocardiogram revealed some left atrial dilation with a normal left ventricle. There are is no change compared to previous echocardiogram of October 2016. CBC is unremarkable Profile is pending. Blood pressure is reasonable at 158/73 Nursing reports no episodes of seizure activity or staring spells/blackout spells Objective Date Time Temp Pulse Resp B/P (MAP) Pulse Ox O2 Delivery O2 Flow Rate FiO2 02/11/17 00:00 Room Air 02/10/17 16:20 99 Room Air 02/10/17 16:06 36.9 73 18 158/73 (101) 99 Room Air 02/10/17 14:54 68 96 02/10/17 11:24 36.9 68 14 171/72 (105) 96 Room Air 02/10/17 11:17 36.9 70 20 92 Last 24 Hours Test 02/11/17 06:59 White Blood Count 7.25 K/uL Red Blood Count 4.40 M/uL Hemoglobin 14.0 g/dL Hematocrit 40.0 % Mean Corpuscular Volume 90.9 fL Mean Corpuscular Hemoglobin 31.8 pg Mean Corpuscular Hemoglobin Concent 35.0 g/dl RDW Standard Deviation 43.6 fL RDW Coefficient of Variation 13.1 % Platelet Count 321 K/uL Mean Platelet Volume 9.2 fL Sodium Level 130 mmol/L Potassium Level 3.7 mmol/L Chloride Level 99 mmol/L Carbon Dioxide Level 24 mmol/L Anion Gap 7.0 mmol/L Blood Urea Nitrogen 20 mg/dl Creatinine 0.72 mg/dl Est Creatinine Clear Calc Drug Dose 59.0 ml/min Estimated GFR () 87.9 Estimated GFR (Non- 75.8 BUN/Creatinine Ratio 28.3 Random Glucose 103 mg/dl Calcium Level 8.7 mg/dl Magnesium Level 2.0 mg/dl Exam: She is awake and alert. She is pleasant and cooperative. She has considerable hearing loss but otherwise communicates well. She has little recall of the fact that we talked at length yesterday. She seems to remember me as someone who she saw before but cannot remember anything from yesterday. She has no aphasia or dysarthria Extraocular eye muscles are intact without nystagmus. Coordination of the arms is normal with no ataxia or tremor. Strength is symmetrical in the arms. Like strength is symmetrical except for some weakness 4/5 in the right tibialis anterior. Current Inpatient Medications Medications (Trade) Dose Ordered Sig/Silvia Route Start Time Stop Time Status Last Admin Dose Admin Acetaminophen (Tylenol Tab) 650 mg Q4H PRN PO 02/09/17 15:15 03/11/17 15:14 02/09/17 19:10 650 MG Al Hydrox/Mg Hydrox/Simethicone (Maalox Max Susp) 15 ml Q4H PRN PO 02/09/17 15:15 03/11/17 15:14 Magnesium Hydroxide (Milk Of Magnesia Susp) 30 ml Q12H PRN PO 02/09/17 15:15 03/11/17 15:14 Ondansetron HCl (Zofran Inj) 4 mg Q6H PRN IV 02/09/17 15:15 03/11/17 15:14 Polyethylene (Miralax Powder Packet) 17 gm DAILY PRN PO 02/09/17 15:15 03/11/17 15:14 Docusate Sodium (coLACE CAP) 100 mg DAILY PRN PO 02/09/17 15:15 03/11/17 15:14 Gabapentin (Neurontin Cap) 100 mg DAILY PO 02/10/17 09:00 03/12/17 08:59 02/10/17 08:26 100 MG Losartan Potassium (coZAAR TAB) 100 mg DAILY PO 02/10/17 09:00 03/12/17 08:59 02/10/17 08:27 100 MG Metoprolol Succinate (Toprol Xl Tab) 50 mg DAILY PO 02/10/17 09:00 03/12/17 08:59 02/10/17 08:26 50 MG Miscellaneous Information (Order Awaiting Action) 1 ea QS N/A 02/09/17 16:00 03/11/17 15:59 Miscellaneous (Iv Fluids Completed) 1 ea PRN PRN N/A 02/09/17 15:30 02/09/18 15:29 Miscellaneous (Iv Fluids Completed) 1 ea PRN PRN N/A 02/09/17 17:00 02/09/18 16:59 Clonazepam (Klonopin Tab) 0.5 mg HS PO 02/09/17 21:00 03/11/17 20:59 02/10/17 21:52 0.5 MG Impression 1. 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 This is relatively consistent with the MRI back in July 2014 (at least from the report) . This is creating cognitive and language problems. She has a significant dementia with little recall our conversation yesterday. She has bilateral upgoing toes and some tremor on the right as well as a weak right foot. Clinically, she is slowly getting worse over time. I have had an extensive conversation (02-10) with the patient's daughter Vanessa, who is power of staff attorney, at the patient's bedside in a conference mode with the patient participating. This decision stands with the patient and the patient's daughter to not do any surgical intervention and no further medical intervention for now. 2. Syncopal episode February 08. This may have been orthostasis related. There is been no evidence of cardiac dysrhythmia on a monitoring as an inpatient. I cannot entirely exclude partial seizure, for which she would be at risk given her meningioma. The patient has been having some unresponsive episodes which could be consistent with seizures. 3. Bilateral hearing loss, with a lateral hearing aids 4. Right upper extremity tremor. This is an essential tremor but could be related to the meningioma affects. Overall it is very mild and does not require treatment. Plan 1. Since there is absolutely no intention for surgery or any other medical treatment regarding this meningioma and its effects, according to the patient and the patient's power of staff attorney Vanessa): a) there is no need for additional neuroimaging studies such as an MRI b) there is no need for EEG to look for potentially epileptogenic activity c) steroids have been declined and I agree that there would be significant short and long-term side effects. At best, steroids will give temporary relief only. d) there is no need to initiate anticonvulsants. Normally I would suggest Lamictal as this does not give cognitive side effects. They want to hold off on this for now but could consider this in future, empirically We will monitor for potential seizure activity clinically 2. Physical therapy. Increase activity including ambulation but I believe this patient should not be allowed to walk on her own anymore, as she is too great a fall risk. I have no further neurologic testing or treatment to offer this patient at this time. I would be willing to see her as an outpatient for follow-up, if desired. Please contact me if I can be of further assistance on this case.
[2017-02-11] MEDS: METOPROLOL SUCC 50MG EXT REL TAB PO SCH (08:43)
[2017-02-11] MEDS: GABAPENTIN 100 MG CAP PO SCH (08:44)
[2017-02-11] MEDS: LOSARTAN POTASSIUM 50 MG TAB PO SCH (08:44)
[2017-02-11 11:21] VITALS: BP 149/80; PULSE 62; TEMP 36.7; O2SAT 96
--- NOTE | 2017-02-11 12:39 | Progress Note ---
Subjective Date of Service: Feb 11, 2017. Subjective Pt evaluation today including: conversation w/ patient, physical exam, chart review, lab review, review of studies, review of inpatient medication list Resting comfortably in bed NO acute distress Unable to sleep well last night according to staff Problem List Medical Problems: (1) Acute head injury Status: Acute (2) Altered mental status Status: Acute (3) Brain tumor Status: Acute (4) Fall Status: Acute (5) Fall Status: Acute (6) Hypokalemia Status: Acute (7) Hyponatremia Status: Acute (8) Scalp laceration Status: Acute (9) Vasogenic cerebral edema Status: Acute Review of Systems Constitutional: No fever, No chills, No sweats, No weight loss, No weakness ENT: No hearing loss, No unusual epistaxis, No nasal symptoms, No sore throat, No tinnitus Respiratory: No cough, No sputum, No wheezing, No shortness of breath, No dyspnea on exertion Cardiac: No chest pain, No orthopnea, No PND, No edema, No claudication Abdomen: No pain, No nausea, No vomiting, No diarrhea, No constipation Musculoskeletal: No joint pain, No muscle pain, No swelling, No calf pain Female : No dysuria, No urinary frequency, No hematuria, No incontinence Neurologic: No memory loss, No paralysis, No weakness, No numbness/tingling, No vertigo Psychiatric: No depression symptoms, No anhedonism, No anxiety, No insomnia Endo: No fatigue, No excessive thirst Skin: No rash, No itch, No new/changing skin lesions, No color change Objective Vital Signs Date Time Temp Pulse Resp B/P (MAP) Pulse Ox O2 Delivery O2 Flow Rate FiO2 02/11/17 11:21 36.7 62 18 149/80 (103) 96 Room Air 02/11/17 09:00 Room Air 02/11/17 00:00 Room Air 02/10/17 16:20 99 Room Air 02/10/17 16:06 36.9 73 18 158/73 (101) 99 Room Air 02/10/17 14:54 68 96 Physical Exam General Appearance: WD/WN, no apparent distress Eyes: normal inspection, PERRL, EOMI, sclerae normal Neck: supple, no adenopathy, thyroid normal, no JVD Respiratory/Chest: chest non-tender, lungs clear, normal breath sounds, no respiratory distress Cardiovascular: regular rate, rhythm, no edema, no gallop, no JVD Abdomen: normal bowel sounds, non tender, soft, no organomegaly Neurologic/Psychiatric: no motor/sensory deficits, alert, normal mood/affect, oriented x 3 Laboratory Results Last 24 Hours Test 02/11/17 06:59 White Blood Count 7.25 K/uL Red Blood Count 4.40 M/uL Hemoglobin 14.0 g/dL Hematocrit 40.0 % Mean Corpuscular Volume 90.9 fL Mean Corpuscular Hemoglobin 31.8 pg Mean Corpuscular Hemoglobin Concent 35.0 g/dl RDW Standard Deviation 43.6 fL RDW Coefficient of Variation 13.1 % Platelet Count 321 K/uL Mean Platelet Volume 9.2 fL Sodium Level 130 mmol/L Potassium Level 3.7 mmol/L Chloride Level 99 mmol/L Carbon Dioxide Level 24 mmol/L Anion Gap 7.0 mmol/L Blood Urea Nitrogen 20 mg/dl Creatinine 0.72 mg/dl Est Creatinine Clear Calc Drug Dose 59.0 ml/min Estimated GFR () 87.9 Estimated GFR (Non- 75.8 BUN/Creatinine Ratio 28.3 Random Glucose 103 mg/dl Calcium Level 8.7 mg/dl Magnesium Level 2.0 mg/dl Assessment and Plan 86 y/o female with a history of Meningioma and HTN who presents due to syncope and a unwitnessed fall. Patient is a resident of the [facility] at [facility]. She has had 2 falls (February 08 and ) that she cannot recall precipitating factors or recall of events. Syncope and Collapse with Multiple Unwitnessed Falls--stable -Admit to [facility] for cardiac monitoring. No acute events overnight. Pt remained in sinus rhythm with heart rate 60s-80s. Transfer to med/surg 02/10 -Troponin negative x 3 -Repeat echo shows LVEF of 65-70%, grade I diastolic dysfunction and severely dilated left atrium. No significant changes from previous study. -PT/OT evaluate and treat -Likely secondary to progressive meningioma w/edema and midline shift -Posterior head lac clean and dry. Ella placed 02/09 -Due to deconditioning and confusion, fam and pt agreeable to rehab, PT/OT completed Meningioma with Cerebral Edema and midline shift--stable -Neurology consulted, appreciate recs: family/patient does not desire any surgical intervention and is declining steroids and anticonvulsant therapy at this time. May consider anticonvulsants in the future but will hold off for now. No need for further neuroimaging or EEG. Recommend physical therapy but do not recommend allowing patient to ambulate alone due to fall risk. -D/C Decadron -May need to consider palliative care in the future Hyponatremia--improving -Serum osm low at 268, urine osm low at 436 -Random urine sodium WNL -Sodium improved to 131 on 02/10, 130 this AM -Hold HCTZ ?UTI POA -Denies urinary symptoms. Afebrile, no leukocytosis -UA negative, although pt had been treated with abx at [facility] -Urine culture NGTD -Hold off abx for now HTN--stable -Continue Losartan 100 mg daily and Metoprolol 50 mg daily DVT prophylaxis -[facility] [place] [facility] Code Status -Level V, DO NOT RESUSCITATE Dispo -Pt from [facility] independent living - Daughter Vanessa (Radiologist) from [place] is POA - [phone]
[2017-02-11] MEDS: ACETAMINOPHEN 325 MG TAB PO PRN (13:42)
[2017-02-11] MEDS ORDERED: NURSING VERBAL MED ORDER ONE (15:00)
[2017-02-11 15:01] VITALS: BP 155/75; PULSE 65; TEMP 36.7; O2SAT 98
[2017-02-11 19:52] VITALS: BP 161/87; PULSE 65; TEMP 36.6; O2SAT 96
[2017-02-11] MEDS: CLONAZEPAM 0.5 MG TAB PO SCH (20:27)
[2017-02-11] MEDS: BACITRACIN OINT 15 GM TUBE EXT SCH (20:27)
[2017-02-11 23:09] VITALS: BP 178/79; PULSE 60; TEMP 36.7; O2SAT 96
[2017-02-12] MEDS: ACETAMINOPHEN 325 MG TAB PO PRN ×2 (03:35→16:52)
[2017-02-12 06:18] VITALS: BP 167/84; PULSE 66; TEMP 36.9; O2SAT 91
[2017-02-12 06:35] LABS: HEMATOCRIT 38.9 % (37-47); MEAN CORPUSCULAR HEMOGLOBIN 31.7 pg (25-34); MEAN CORPUSCULAR HGB CONC 34.4 g/dl (32-36); MEAN PLATELET VOLUME 9.2 fL (7.4-10.4); PLATELET COUNT 304 K/uL (130-400); RED BLOOD COUNT 4.23 M/uL (4.2-5.4); WHITE BLOOD COUNT 5.85 K/uL (4.8-10.8)
[2017-02-12 07:06] LABS: BUN/CREATININE RATIO 27.5 (10-20); CALCIUM 8.2 mg/dl (8.5-10.1); CREATININE 0.65 mg/dl (0.60-1.20); MAGNESIUM 2.2 mg/dl (1.8-2.4); POTASSIUM 3.9 mmol/L (3.5-5.1)
[2017-02-12] MEDS: METOPROLOL SUCC 50MG EXT REL TAB PO SCH (07:42)
[2017-02-12] MEDS: GABAPENTIN 100 MG CAP PO SCH (07:42)
[2017-02-12] MEDS: LOSARTAN POTASSIUM 50 MG TAB PO SCH (07:43)
[2017-02-12] MEDS: BACITRACIN OINT 15 GM TUBE EXT SCH ×2 (07:43→19:45)
[2017-02-12 11:25] VITALS: BP 162/82; PULSE 64; TEMP 36.5; O2SAT 97
--- NOTE | 2017-02-12 11:46 | Progress Note ---
Subjective Date of Service: Feb 12, 2017. Subjective Pt evaluation today including: conversation w/ patient, physical exam, chart review, lab review, review of studies, review of inpatient medication list Resting comfortably in bed Denies any distress Confused at times why she is here States has trouble sleeping Problem List Medical Problems: (1) Acute head injury Status: Acute (2) Altered mental status Status: Acute (3) Brain tumor Status: Acute (4) Fall Status: Acute (5) Fall Status: Acute (6) Hypokalemia Status: Acute (7) Hyponatremia Status: Acute (8) Scalp laceration Status: Acute (9) Vasogenic cerebral edema Status: Acute Review of Systems Constitutional: No fever, No chills, No sweats, No weight loss Respiratory: No cough, No sputum, No wheezing, No shortness of breath, No dyspnea on exertion Cardiac: No chest pain, No orthopnea, No PND, No edema Abdomen: No pain, No nausea, No vomiting, No diarrhea, No constipation Musculoskeletal: No joint pain, No muscle pain, No swelling, No calf pain Female : No dysuria, No urinary frequency, No hematuria Neurologic: No memory loss, No paralysis, No weakness, No numbness/tingling Psychiatric: No depression symptoms, No anhedonism, No anxiety, No insomnia Skin: No rash, No itch Objective Vital Signs Date Time Temp Pulse Resp B/P (MAP) Pulse Ox O2 Delivery O2 Flow Rate FiO2 02/12/17 11:25 36.5 64 20 162/82 (108) 97 Room Air 02/12/17 08:00 Room Air 02/12/17 06:18 36.9 66 18 167/84 (111) 91 Room Air 02/12/17 00:00 Room Air 02/11/17 23:09 36.7 60 18 178/79 (112) 96 Room Air 02/11/17 19:52 36.6 65 18 161/87 (111) 96 Room Air 02/11/17 16:00 Room Air 02/11/17 15:01 36.7 65 18 155/75 (101) 98 Room Air Physical Exam General Appearance: WD/WN, no apparent distress Neck: supple, no adenopathy, thyroid normal, no JVD Respiratory/Chest: chest non-tender, lungs clear, normal breath sounds, no respiratory distress Cardiovascular: regular rate, rhythm, no edema, no gallop, no JVD Abdomen: normal bowel sounds, non tender, soft, no organomegaly Extremities: non-tender, normal inspection, no pedal edema, no calf tenderness Neurologic/Psychiatric: no motor/sensory deficits, alert, normal mood/affect Laboratory Results Last 24 Hours Test 02/12/17 06:09 White Blood Count 5.85 K/uL Red Blood Count 4.23 M/uL Hemoglobin 13.4 g/dL Hematocrit 38.9 % Mean Corpuscular Volume 92.0 fL Mean Corpuscular Hemoglobin 31.7 pg Mean Corpuscular Hemoglobin Concent 34.4 g/dl RDW Standard Deviation 44.7 fL RDW Coefficient of Variation 13.4 % Platelet Count 304 K/uL Mean Platelet Volume 9.2 fL Sodium Level 136 mmol/L Potassium Level 3.9 mmol/L Chloride Level 101 mmol/L Carbon Dioxide Level 29 mmol/L Anion Gap 6.0 mmol/L Blood Urea Nitrogen 18 mg/dl Creatinine 0.65 mg/dl Est Creatinine Clear Calc Drug Dose 65.3 ml/min Estimated GFR () 93.2 Estimated GFR (Non- 80.4 BUN/Creatinine Ratio 27.5 Random Glucose 85 mg/dl Calcium Level 8.2 mg/dl Magnesium Level 2.2 mg/dl Assessment and Plan 86 y/o female with a history of Meningioma and HTN who presents due to syncope and a unwitnessed fall. Patient is a resident of the [facility] at [facility]. She has had 2 falls (February 08 and ) that she cannot recall precipitating factors or recall of events. Syncope and Collapse with Multiple Unwitnessed Falls--stable -Admit to [facility] for cardiac monitoring. No acute events overnight. Transfer to med/surg 02/10 -Troponin negative x 3 -Repeat echo shows LVEF of 65-70%, grade I diastolic dysfunction and severely dilated left atrium. No significant changes from previous study. -PT/OT evaluate and treat, noted decreased safety awareness and easily fatigues , recommended rehab -Likely secondary to progressive meningioma w/edema and midline shift -Posterior head lac clean and dry. Ella placed 02/09, bacitracin placed on -Due to deconditioning and confusion, fam and pt agreeable to rehab, can go tot [facility] on discharge Meningioma with Cerebral Edema and midline shift--stable -Neurology consulted, appreciate recs: family/patient does not desire any surgical intervention and is declining steroids and anticonvulsant therapy at this time. May consider anticonvulsants in the future but will hold off for now. No need for further neuroimaging or EEG. Recommend physical therapy but do not recommend allowing patient to ambulate alone due to fall risk. -D/C Decadron -May need to consider palliative care in the future Hyponatremia--resolved -Serum osm low at 268, urine osm low at 436 -Random urine sodium WNL -Sodium improved to 131 on 02/10, 136 this AM -Hold HCTZ ?UTI POA -Denies urinary symptoms. Afebrile, no leukocytosis -UA negative, although pt had been treated with abx at [facility] -Urine culture NGTD -Hold off abx for now HTN--stable -Continue Losartan 100 mg daily and Metoprolol 50 mg daily DVT prophylaxis -CORY paniagua and SCDs Code Status -Level V, DO NOT RESUSCITATE Dispo -Pt from [facility] independent living - Daughter Vanessa (Radiologist) from [place] is POA - [phone]
[2017-02-12 15:35] VITALS: BP 153/77; PULSE 60; TEMP 36.4; O2SAT 99
[2017-02-12 19:18] VITALS: BP 150/79; PULSE 74; TEMP 36.8; O2SAT 98
[2017-02-12] MEDS: CLONAZEPAM 0.5 MG TAB PO SCH (21:23)
[2017-02-12 22:59] VITALS: BP 179/80; PULSE 66; TEMP 36.8; O2SAT 90
[2017-02-13] VITALS (7 sets, daily range): BP systolic 130–181; BP diastolic 79–85; PULSE 65–73; TEMP 36.5–36.8; O2SAT 95–99
[2017-02-13] MEDS: LOSARTAN POTASSIUM 50 MG TAB PO SCH (08:03)
[2017-02-13] MEDS: GABAPENTIN 100 MG CAP PO SCH (08:04)
[2017-02-13] MEDS: METOPROLOL SUCC 50MG EXT REL TAB PO SCH (08:05)
[2017-02-13] MEDS: BACITRACIN OINT 15 GM TUBE EXT SCH ×2 (08:05→21:08)
[2017-02-13] MEDS ORDERED: BCTO EXT (12:51)
[2017-02-13] MEDS ORDERED: CEPH-571 PO (13:03)
[2017-02-13] MEDS ORDERED: CLON0.5T3 PO (13:05)
--- NOTE | 2017-02-13 13:07 | Discharge Instructions ---
Discharge Instructions Date of Service Feb 13, 2017. Admission Reason for Admission: Syncope And Collapse Discharge Discharge Diagnosis / Problem: Syncope and Collapse Discharge Goals Goal(s): Decrease discomfort, Improve function, Increase independence Activity Recommendations Activity Level: Assistance Required Therapies: Physical Therapy, Occupational Therapy Shower/Bathe: no limitations . Additional Information Patient informed of condition: Yes Advance Directives: Yes DNR: Yes Level of Care: Skilled Communicable Disease: No Prognosis: Improving Instructions / Follow-Up Instructions / Follow-Up 86 y/o female with a history of Meningioma and HTN who presents due to syncope and a unwitnessed fall. Patient is a resident of the [facility] living at [facility]. She has had 2 falls (February 08 and ) that she cannot recall precipitating factors or recall of events. Syncope and Collapse with Multiple Unwitnessed Falls: STABLE - Suspect this is related to the meningioma with midline shift and cerebral edema - did utilize one dose of steroids but family and patient decision was to not pursue further steroids, anticonvulsants, or surgical intervention - Other causes of syncope were ruled out with no elevations in cardiac enzymes or arrhythmias. -- Echo - EF 65-70%; grade I diastolic dysfunction; and severely dilated L atrium - not much change from previous echo Posterior Head Laceration: - 8 rosamaria placed on admission. Tomorrow would be day 5 and could likely be removed. ED was unable to completely approximate the center of the wound and therefore it is open. - No bleeding is present - Recommend gentle cleansing with mild soap and water and apply bacitracin. Continue bacitracin BID - Start Keflex 500 mg BID for 7 days. Start this evening. Meningioma with Cerebral Edema and Midline Shift: STABLE -Neurology consulted - family/patient does not desire any surgical intervention and is declining steroids and anticonvulsant therapy at this time. May consider anticonvulsants in the future but will hold off for now. No need for further neuroimaging or EEG. Recommend physical therapy but do not recommend allowing patient to ambulate alone due to fall risk. Hyponatremia: RESOLVED -Serum osm low at 268, urine osm low at 436 and random sodium elevated - Improved mildly with fluids but is now low normal with fluids stopped UTI: - Reports being on antibiotics at [facility]. Have monitored off antibiotics HTN: STABLE -Continue Losartan 100 mg daily and Metoprolol 50 mg daily DVT Prophylaxis: -CORY paniagua and SCDs Code Status: -Level V, DO NOT RESUSCITATE Disposition: - Recommend follow-up BMP in 1-2 days to monitor sodium level. Will need rehab - Daughter Vanessa (Radiologist) from [place] is POA - [phone] - will send POLST form for her review but recommending discussion at [facility] with Dr. Baeza and if she does want fill this out, will need provider to initiate. Current Hospital Diet Patient's current hospital diet: Regular Diet Discharge Diet Recommended Diet: Regular Diet Pending Studies Studies pending at discharge: no Medical Emergencies . Who to Call and When: Medical Emergencies: If at any time you feel your situation is an emergency, please call 911 immediately. . Non-Emergent Contact Non-Emergency issues call your: Primary Care Provider Call Non-Emergent contact if: you have a fever, your pain is concerning you, you have any medication questions . . "Provider Documentation" section prepared by Nona Barnett. . Core Measure Problem Core Measures: None
--- NOTE | 2017-02-13 14:30 | Discharge Summary ---
Discharge Summary Date of Service Feb 13, 2017. Discharge Summary Admission Date: Feb 09, 2017 at 16:32 Discharge Date: Feb 13, 2017 Discharge Disposition: alf facility Principal Diagnosis: Syncope and Collapse Problems/Secondary Diagnoses: 1. Meningioma 2. HTN 3. OA Immunizations: Have You Had Influenza Vaccine: Yes Influenza Vaccine Date: May 24, 2012 History of Tetanus Vaccine?: Yes Tetanus Immunization Date: Nov 22, 2010 History of Pneumococcal: Yes Pneumococcal Date: May 24, 2012 History of Hepatitis B Vaccine: No Procedures: CT HEAD WITHOUT CONTRAST (CT) FINDINGS: Again evident is a 41 mm extra-axial left frontal temporal mass. There is extensive left hemispheric vasogenic edema. There is 7 mm of left to right midline shift. There is effacement of the left lateral ventricle. There is no acute hemorrhage. No calvarial fractures are visualized. There is a right parietal scalp edema. There is no evidence of pathologic ventricular dilatation. There is no evidence of acute sinusitis IMPRESSION: 1. Stable left frontotemporal extra-axial mass. There is extensive left hemispheric vasogenic edema and 7 mm of left to right midline shift. 2. Right parietal scalp edema. 3. No evidence of acute hemorrhage CERVICAL SPINE W/O FINDINGS: No fractures. No subluxation. Prevertebral soft tissues and the C1-C2 interval are intact. No pneumothorax. Generalized moderate degenerative change IMPRESSION: No fractures within the cervical spine. LUMBAR SPINE WITHOUT FINDINGS: No fractures. No subluxation. Paraspinal soft tissues are unremarkable. Generalized degenerative change throughout. IMPRESSION: No fractures within the lumbar spine. Generalized degenerative change Consultations: 1. Neurology 2. PT/OT Medication Reconciliation New Medications: Cephalexin (Keflex) 500 Mg Cap 1 CAP PO BID for 7 Days, #14 CAP Bacitracin (Bacitracin Zinc) 45 Appln/15 Gm Oint 1 APPLN EXT BID for 7 Days, #1 TUBE Continued Medications: Acetaminophen (Tylenol) 500 Mg Tab 1000 MG PO Q6H PRN for Pain or Fever, TAB Aspirin (Aspir-81) 81 Mg Tab 1 TAB PO MWF for 90 Days, TAB 3 Refills monday, monday, monday Cholecalciferol (Vitamin D3) 1,000 Unit Tab 2 TABS PO DAILY for 90 Days, TAB 3 Refills Clonazepam (Klonopin) 0.5 Mg Tab 0.5 MG PO HS for 14 Days, TAB (This prescription has been renewed) Docusate Sodium (Colace) 100 Mg Cap 1 CAP PO UD PRN for Constipation for 30 Days, CAP Gabapentin (Neurontin) 100 Mg Cap 100 MG PO DAILY, CAP Hydrochlorothiazide (Hctz) 25 Mg Tab 25 MG PO DAILY, TAB Losartan Potassium (Cozaar) 100 Mg Tab 100 MG PO DAILY, TAB Metoprolol Succ (Toprol Xl) (Toprol-Xl) 50 Mg Tabcr 50 MG PO DAILY, #30 TAB Penciclovir (Denavir) 1 % Cre 1 APPLN TOP Q2H Potassium Chloride (Micro-K Ext Rel) 10 Meq Capcr 10 MEQ PO DAILY, CAP Discontinued Medications: Clonazepam (Klonopin) 0.5 Mg Tab 0.5 TAB PO DAILY@0000 PRN for Insomnia for 30 Days, TAB Discharge Exam Review of Systems: Constitutional: No fever, No chills Respiratory: No cough, No shortness of breath Cardiovascular: No chest pain, No palpitations Abdomen: No pain Musculoskeletal: No swelling, No calf pain Genitourinary - Female: No dysuria Hematologic / Lymphatic: No abnormal bleeding/bruising, No clotting problems Integumentary: No rash Physical Exam: General Appearance: WD/WN, no apparent distress Eyes: sclerae normal ENT: + pertinent finding (SAVOONGA - bilateral hearing aids) Neck: supple, no JVD, trachea midline Respiratory/Chest: lungs clear, normal breath sounds, no respiratory distress, no accessory muscle use Cardiovascular: regular rate, rhythm, no gallop, no murmur Abdomen / GI: normal bowel sounds, non tender, soft Extremities: no calf tenderness, no pedal edema Neurologic/Psychiatric: alert, + pertinent finding (asks the same questions multiple times with only a few minutes in between; is hard to redirect) Skin: normal color, warm/dry Hospital Course ADMISSION: Ms. Dodd is an 86 y/o female with PMHx of Meningioma and HTN who presents due to a unwitnessed fall today. Patient is a resident of the [facility] at [facility]. Patient is alert and oriented but a poor historian as she is fixated on the events of the day and hard to redirect. Did discuss patient with cousin at bedside and daughter over the phone. Baseline mentation is alert and oriented with intermittent moments of confusion that lasts a few minutes and seems to subside. She has associated chronic language and memory issues per the daughter x 18 months. Patient was seen in the ED on for a fall that occurred in her livingroom. She cannot recall precipitating events but called a neighbor who called EMS. She returned home to [facility] after evaluation. Patient was then found on 02/10 in the garbage room at [facility], again patient is unable to recall precipitating events. During this fall she sustained a laceration to the posterior portion of her head. Currently, she complains of a headache and neck pain. Daughter reports that patient was diagnosed with a UTI and was placed on antibiotics on 02/07. Unable to reach [facility] to confirm medication. She reports urinary frequency but denies other symptoms. She denies fever/chills, CP, SOB, abdominal pain, N/V, dysuria, constipation/diarrhea. Spoke to daughter Vanessa who is a radiologist in [place] and is POA. Phone number is [phone]. Supplemental history obtained from her. Meningioma was diagnosed 6 1/2 years ago and was incidentally found after a fall. She has had ongoing monitoring by a neurosurgeon and in 2010 MRI confirmed the presence of a midline shift. She reports that the neurosurgeon deemed the patient too high a risk and not a good surgical candidate as they suspected she would infarct or herniate if they would proceed. She reports over the past 18 months she has noticed a gradual worsening of her language and memory. Daughter states she has a lot of moments of clarity but will have confusion that lasts for several minutes. Also reporting difficulty word finding and intermittent aphasia. This was all seen during examination of patient as she would intermittent use the wrong words but would realize that these were not the words she wanted to say. Of note, patient's right hearing aid battery and does have some hearing impairment that could be factoring in. Had a discussion with the patient and daughter who are all in agreement that no surgical intervention is wanted. Patient also expresses she would like medicinal intervention but no procedures. She expresses desire to be a DO NOT RESUSCITATE. Patient even with intermittent confusion does appear competent to make her own decisions. In the ED, Head CT shows a 41 mm L frontotemporal extra-axial mass with L hemispheric vasogenic edema and 7 mm L to R midline shift. This CT is stable from the one on 02/08 which was slightly worsened compared to the imaging prior to this. CT of neck and spine without fracture. Na is 129. She had 8 rosamaria placed to the posterior portion of her head is difficulty approximating the center of the laceration. She will be admitted to telemetry for rhythm monitoring to R/O other causes of syncope. HOSPITAL COURSE: Ms. Dodd was admitted for syncope and collapse on two separate occasions. Suspicion was related to her known Meningioma. As patient and family have decided against surgical intervention she was initially treated medicinally. She received Decadron x 1 dose for cerebral edema. Discussion with patient, daughter Vanessa, and neurology the plan is to monitor without steroids, anticonvulsants, and obviously surgical intervention. She was monitored on telemetry without significant arrhythmia noted and cardiac enzymes negative. Echocardiogram was unchanged from previous testing. She did sustain a laceration to the posterior head with 8 rosamaria placed which 02/14 would be day 5. However, ED resident was not able to adequately approximate the center of the wound and is open but not bleeding. She will be placed on Keflex 500 mg BID x 7 days and Bacitracin. Upon admission she was noted to be hyponatremic which may be related to HCTZ vs SIADH given her meningioma. Labs performed did not give a clear picture but she mildly improved with fluids but normalized once fluids were D/Cd. Due to multiple falls and progressive nature of her meningioma she will need SNF placement and possible long-term placement pending SNF. Total Time Spent: Greater than 30 minutes This includes examination of the patient, discharge planning, medication reconciliation, and communication with other providers. Discharge Instructions Please refer to the electronic Patient Visit Report (Discharge Instructions) for additional information. Additional Copies To Eulogio Wisdom; Raheel Baeza M.D.
[2017-02-13] MEDS: ACETAMINOPHEN 325 MG TAB PO PRN (17:03)
[2017-02-13] MEDS: CLONAZEPAM 0.5 MG TAB PO SCH (22:13)
[2017-02-14 01:15] VITALS: BP 146/83; PULSE 69; TEMP 36.6; O2SAT 97
[2017-02-14 04:11] VITALS: BP 148/69; PULSE 64; TEMP 36.7; O2SAT 97
[2017-02-14 07:27] VITALS: BP 174/81; PULSE 75; TEMP 36.4; O2SAT 99
[2017-02-14] MEDS: LOSARTAN POTASSIUM 50 MG TAB PO SCH (07:46)
[2017-02-14] MEDS: BACITRACIN OINT 15 GM TUBE EXT SCH (07:46)
[2017-02-14] MEDS: GABAPENTIN 100 MG CAP PO SCH (07:46)
[2017-02-14] MEDS: METOPROLOL SUCC 50MG EXT REL TAB PO SCH (07:55)
[2017-02-14 10:25] LABS: BUN/CREATININE RATIO 15.3 (10-20); CALCIUM 8.8 mg/dl (8.5-10.1); CREATININE 0.9 mg/dl (0.60-1.20); POTASSIUM 3.7 mmol/L (3.5-5.1)
[2017-02-14] MEDS ORDERED: CEPHALEXIN MONOHYDRATE 500 MG CAP PO ONE (10:30)
[2017-02-14 10:38] VITALS: BP 174/81; PULSE 75; TEMP 36.4; O2SAT 99
--- NOTE | 2017-02-14 12:27 | Procedure Note ---
Procedure Note Date of Service Feb 14, 2017. Procedure Note Patient being discharged to [facility] today. Laceration to crown of scalp repaired 6 days in the ED with 8 rosamaria placed. Removed 5 rosamaria. 5th Staple had to be removed with forceps and hemostat as staple was in squared-shape formation. Easily removed without bleeding or complication. Hair removed from around other three rosamaria. Patient appears to have good granulated tissue at the base of the laceration. But concern for possible development of seroma with secondary intention healing. Wound care nurse consult placed to document with photography. Appreciate wound care nurse input regarding ongoing care of laceration. Daughter Darlene in room for entire procedure Patient tolerated procedure well with no complaints of pain, bleeding, complications. All questions asked and answered with patient and the daughter. Discussed with Dr. Ventura after procedure. Advised it is okay to discharge patient with recommendations from wound care.
--- NOTE | 2017-02-14 15:41 | Hospitalist Progress Note ---
Hospitalist Progress Note Date of Service Feb 13, 2017. Subjective Pt evaluation today including: conversation w/ patient, conversation w/ family , physical exam, chart review, lab review, review of studies, review of inpatient medication list Patient seen on February 13 but a D/C summary was given as hopes for D/C to [facility]. Due to insurance authorization she could not go on February 13. She was seen and evaluated with no acute issues. Discussed case with Darlene and Vanessa (patient's daughter) and agree with plan. Please see discharge summary for ROS and physical exam. Additional Comments: See Discharge Summary for ROS. Objective Vital Signs Date Time Temp Pulse Resp B/P (MAP) Pulse Ox O2 Delivery O2 Flow Rate FiO2 02/14/17 10:38 36.4 75 18 99 Room Air 02/14/17 08:00 Room Air 02/14/17 07:27 36.4 75 18 174/81 (112) 99 Room Air 02/14/17 04:11 36.7 64 18 148/69 (95) 97 Room Air 64 02/14/17 01:15 36.6 69 20 146/83 (104) 97 Room Air 02/14/17 00:00 Room Air 02/13/17 19:58 36.5 66 18 174/82 (112) 98 Room Air 02/13/17 16:10 Room Air 02/13/17 15:46 36.7 65 18 161/85 (110) 97 Room Air Physical Exam Notes: See Discharge Summary for Physical Exam. Wound laceration on posterior head. Center of wound poorly approximated. Laboratory Results Last 24 Hours Test 02/14/17 09:29 Sodium Level 138 mmol/L Potassium Level 3.7 mmol/L Chloride Level 105 mmol/L Carbon Dioxide Level 27 mmol/L Anion Gap 6.0 mmol/L Blood Urea Nitrogen 14 mg/dl Creatinine 0.90 mg/dl Est Creatinine Clear Calc Drug Dose 47.2 ml/min Estimated GFR () 67.1 Estimated GFR (Non- 57.9 BUN/Creatinine Ratio 15.3 Random Glucose 70 mg/dl Calcium Level 8.8 mg/dl Assessment and Plan 86 y/o female with a history of Meningioma and HTN who presents due to syncope and a unwitnessed fall. Patient is a resident of the [facility] at [facility]. She has had 2 falls (February 08 and ) that she cannot recall precipitating factors or recall of events. Syncope and Collapse with Multiple Unwitnessed Falls: STABLE - No falls since admission - plan to D/C to [facility] Meningioma with Cerebral Edema and Midline Shift: STABLE -Neurology consulted - no plan for steroids, anticonvulsants, or surgical intervention - will continue to monitor Hyponatremia: RESOLVED ?UTI POA - Stable off antibiotics HTN: STABLE -Continue Losartan 100 mg daily and Metoprolol 50 mg daily DVT Prophylaxis: CORY/SCDs Code Status -Level V, DO NOT RESUSCITATE Disposition: - This note was generated on 02/14 to cover for 02/13 and discussed with Bridget to update on patient plan. - Was unable to D/C due to waiting on insurance authorization but she was D/Cd on 02/14
[2017-02-15] MEDS ORDERED: HYDROCHLOROTHIAZIDE 25 MG TAB PO SCH (08:00)
[2017-02-24] MEDS ORDERED: HYDR25TA4 PO (14:23)
[2017-02-24] MEDS ORDERED: LOSA100T65 PO (14:23)
[2017-02-24] MEDS ORDERED: DOCU-94 PO (14:23)
[2017-02-24] MEDS ORDERED: CHOL1000 PO (14:23)
[2017-02-24] MEDS ORDERED: ACET-1256 PO (14:23)
[2017-02-24] MEDS ORDERED: METO50TA7 PO (14:23)
[2017-02-24] MEDS ORDERED: ASPI-232 PO (14:23)
[2017-02-24] MEDS ORDERED: POTA10CA28 PO (14:23)
== END 2017-02-14 13:22 | DRG 54 ==
LOC: C.EDA 11:32 → EDBD 11:32 → C.2T 15:11 → ENRESERV 15:42 → OBSVTOIN 16:32 → C.2T 02-10 09:00 → ENRESERV 02-10 10:49 → C.4E 02-10 11:20
PROVIDERS: ADMIT Internal Medicine; ATTEND Hospitalist
PROC: 0HQ0XZZ Repair Scalp Skin, External Approach (ICD-10-PCS; principal; 2017-02-09)
DX: D32.0 Benign neoplasm of cerebral meninges (principal); G93.6 Cerebral edema; E87.1 Hypo-osmolality and hyponatremia; N39.0 Urinary tract infection, site not specified; S01.01XA Laceration without foreign body of scalp, initial encounter; I10 Essential (primary) hypertension; E87.6 Hypokalemia; Z86.011 Personal history of benign neoplasm of the brain; Z66 Do not resuscitate; W19.XXXA Unspecified fall, initial encounter; Y92.098 Other place in other non-institutional residence as the place of occurrence of the external cause; R41.0 Disorientation, unspecified; S50.812A Abrasion of left forearm, initial encounter; S60.812A Abrasion of left wrist, initial encounter; S40.012A Contusion of left shoulder, initial encounter; Y92.128 Other place in nursing home as the place of occurrence of the external cause; M54.5 Low back pain; M19.90 Unspecified osteoarthritis, unspecified site; R35.0 Frequency of micturition

== ENCOUNTER 2017-02-24 18:11 | Emergency (ER) | payer BC ==
[~2017-02-24] VITALS: Ht 165.1 cm; Wt 81.3 kg
[~2017-02-24 18:11] MED LIST changes: +ACET-1256 PO; +ASPI-232 PO; +BCTO EXT; +CHOL1000 PO; +CLON0.5T3 PO; -CZR50 PO; +DOCU-94 PO; -DYZ PO; +GABA1CAP PO; +HYDR25TA4 PO; +LOSA100T65 PO; +METO50TA7 PO; -MULT-506 PO; +PENC1CRE4 TOP; +POTA10CA28 PO; -RSTOPS OP; -STLS PO; -WARF2TAB PO
[2017-02-24 18:20] VITALS: Ht 165.1 cm; Wt 81.3 kg
[2017-02-24] MEDS ORDERED: SODIUM CHLORIDE 0.9% 1000ML 1,000 ML IV STA (18:46)
[2017-02-24] MEDS ORDERED: XYLOCAINE 1%/SOD BICARB 20 ML VIAL INFIL ONE ×2 (19:00→19:15)
[2017-02-24] MEDS ORDERED: DIPHTHERIA/TETANUS/PERTUSSIS 0.5 ML SYR/VIAL IM. ONE (19:00)
--- NOTE | 2017-02-24 19:10 | DIAGNOSTIC IMAGING REPORT ---
CHEST ONE VIEW PORTABLE CLINICAL HISTORY: EVALUATE ALTERED MENTAL STATUS/WEAKNESS COMPARISON STUDY: 02/09/2017 FINDINGS: Mild stable cardiomegaly. Chronic parenchymal prominence left base. Lungs otherwise appear clear. Old fracture right humeral neck IMPRESSION: Chronic change. No acute process. The above report was generated using voice recognition software. It may contain grammatical, syntax or spelling errors. Electronically signed by: Bro Munoz M.D. 02/24/2017 7:09 PM Dictated Date/Time: 02/24/2017 7:08 PM
--- NOTE | 2017-02-24 19:19 | EMERGENCY ROOM VISIT NOTE ---
ED Visit Note Patient was seen and evaluated by Dr. Akers. Please refer to his note regarding the patient's stay and care. I was kindly asked to perform primary wound closure of her posterior scalp laceration. Risks and benefits of performing primary wound closure versus no repair were discussed with the patient who verbalizes understanding. Verbal consent was obtained prior to performing the procedure. 3 cc of 1% buffered lidocaine was used to anesthetize the 4 cm laceration. The wound was cleansed and prepped in the typical sterile fashion utilizing normal saline and Betadine. The wound was sterilely draped. Once proper anesthetization was established, the wound was further examined and demonstrated a macerated laceration with underlying hematoma. The wound was copiously irrigated with normal saline and Betadine. The wound was closed using 8 rosamaria with the wound edges being well approximated, and achieving adequate hemostasis Patient tolerated the procedure well. No complications were met. Please refer to further documentation regarding her stay. Approximate blood loss: 1 mL. Laceration/macerated length: 4cm
[2017-02-24] MEDS ORDERED: CLON0.5T3 PO (19:36)
[2017-02-24] MEDS ORDERED: BISA10SU3 PR (19:36)
[2017-02-24] MEDS ORDERED: SODIENE PR (19:36)
[2017-02-24] MEDS ORDERED: MELA3TAB12 PO (19:36)
[2017-02-24] MEDS ORDERED: MOML PO (19:36)
--- NOTE | 2017-02-24 20:02 | DIAGNOSTIC IMAGING REPORT ---
HEAD WITHOUT CONTRAST (CT) CT DOSE: 638.56 mGycm HISTORY: Mental status change EVALUATE ALTERED MENTAL STATUS/WEAKNESS TECHNIQUE: Multiaxial CT images of the head were performed without the use of intravenous contrast. A dose lowering technique was utilized adhering to the principles of ALARA. Comparison: 02/09/2017 Findings: No change the prior exam. The left extra-axial mass is unchanged at approximately 4.1 cm maximum dimension. Considerable left cerebral vasogenic edema is unchanged with unchanged midline shift to the right of 7 mm. Punctate calcifications are again noted. These are unchanged. No evidence for acute intracranial hemorrhage. Impression: No change compared to the prior study. Unchanged left cerebral extra-axial mass with considerable left cerebral edema. Unchanged midline shift to the right. The above report was generated using voice recognition software. It may contain grammatical, syntax or spelling errors. Electronically signed by: Bro Munoz M.D. 02/24/2017 8:01 PM Dictated Date/Time: 02/24/2017 7:57 PM
--- NOTE | 2017-02-24 20:06 | DIAGNOSTIC IMAGING REPORT ---
CERVICAL SPINE W/O CT DOSE: 418.06 mGycm HISTORY: Trauma. Pain. fall TECHNIQUE: Multiaxial CT images of the cervical spine were performed and reformatted in the sagittal and coronal plane without the use of contrast. A dose lowering technique was utilized adhering to the principles of ALARA. COMPARISON: 02/09/2017 FINDINGS: No fractures. No subluxation. Prevertebral soft tissues and the C1-C2 interval are intact. No pneumothorax. Moderate degenerative change unaltered from the prior study IMPRESSION: No fractures within the cervical spine. Moderate degenerative change. No change from the prior study. The above report was generated using voice recognition software. It may contain grammatical, syntax or spelling errors. Electronically signed by: Bro Munoz M.D. 02/24/2017 8:05 PM Dictated Date/Time: 02/24/2017 8:03 PM
[2017-02-24] MEDS ORDERED: CLONAZEPAM 0.5 MG TAB PO STA (21:39)
[2017-02-24 21:55] VITALS: BP 187/87; PULSE 65; TEMP 36.7; O2SAT 93
--- NOTE | 2017-02-24 22:10 | EMERGENCY ROOM VISIT NOTE ---
History Report prepared by Darryl: Shirley Spnecer Under the Supervision of: Dr. Han Akers D.O. First contact with patient: 18:24 Chief Complaint: FALL Stated Complaint: FALL/ HEAD INJURY / [place] History of Present Illness The patient is an 86 year old female who presents to the Emergency Room with complaints of a fall at 1745 today. The patient was walking in the dining room when she started feeling "funny" She felt herself fall and hit her head. She is unsure if she lost consciousness. She denies any nausea, neck pain, leg pain, abdominal pain, chest pain, or back pain. She has been eating and drinking well. She has been feeling well lately. One week ago she fell and hit her head. She has followed with her doctor for her falls. She currently resides at [facility]. Source of History: patient, friend Onset: 1744 today Position: other (global) Quality: other (fall) Timing: other (episodic) Associated Symptoms: No neck pain, No chest pain, No nausea, No abdominal pain, No back pain Note: Pt denies leg pain. Review of Systems See HPI for pertinent positives & negatives. A total of 10 systems reviewed and were otherwise negative. Past Medical & Surgical Medical Problems: (1) Arthritis (2) Hypertension (3) Meningioma (4) Syncope and collapse Family History No pertinent family history Social History Smoking Status: Never Smoker Alcohol Use: none Drug Use: none Marital Status: Housing Status: assisted living Occupation Status: retired Current/Historical Medications Scheduled Aspirin (Aspir-81), 1 TAB PO MWF Cholecalciferol (Vitamin D3), 2 TABS PO DAILY Gabapentin (Neurontin), 100 MG PO QAM Hydrochlorothiazide (Hctz), 25 MG PO DAILY Losartan Potassium (Cozaar), 100 MG PO DAILY Metoprolol Succ (Toprol Xl) (Toprol-Xl), 50 MG PO DAILY Potassium Chloride (Micro-K Ext Rel), 10 MEQ PO DAILY Scheduled PRN Acetaminophen (Tylenol), 500 MG PO Q6H PRN for Pain or Fever Bisacodyl (Dulcolax), 1 SUPP [place] Q2D PRN for Constipation Clonazepam (Klonopin), 0.5 MG PO HS PRN for Docusate Sodium (Colace), 1 CAP PO QAM PRN for Constipation Magnesium Hydroxide (Milk Of Magnesia), 30 ML PO Q2H PRN for Constipation Melatonin-Pyridoxine (Melatonin), 1 MG PO HS PRN for Sleep Sodium Phosphate/Biphosphate (Fleet Enema), 1 EA [place] Q72HRS PRN for Constipation Allergies Coded Allergies: Lorazepam (Verified Allergy, Unknown, unknown, 02/09/17) Physical Exam Vital Signs Date Time Temp Pulse Resp B/P (MAP) Pulse Ox O2 Delivery O2 Flow Rate FiO2 02/24/17 21:55 36.7 65 18 187/87 93 02/24/17 21:54 65 187/87 93 02/24/17 20:30 78 177/74 93 02/24/17 18:20 36.7 68 18 177/74 94 Room Air Physical Exam GENERAL: Patient is awake, alert, mildly anxious appearing. EYES: The conjunctivae are clear. The pupils are round and reactive. EARS, NOSE, MOUTH AND THROAT: The nose is without any evidence of any deformity. Mucous membranes are moist tongue is midline. Large occipital scalp hematoma with laceration noted. NECK: The neck is nontender and supple. RESPIRATORY: Normal respiratory effort is noted there is no evidence of wheezing rhonchi or rales CARDIOVASCULAR: Regular rate and rhythm noted there no murmurs rubs or gallops normal S1 normal S2 GASTROINTESTINAL: The abdomen is soft. Bowel sounds are present in all quadrants. Abdomen is nontender MUSCULOSKELETAL/EXTREMITIES: There is no evidence of gross deformity full range of motion is noted in the hips and shoulders SKIN: There is no obvious evidence of any rash. There are no petechiae, pallor or cyanosis noted. NEUROLOGIC: Patient is at baseline according to friend, strength is symmetric. Medical Decision & Procedures ER Provider Diagnostic Interpretation: X-ray results as stated below per interpretation by me and the radiologist. Radiology results as stated below per my review and radiologist interpretation: CHEST ONE VIEW PORTABLE CLINICAL HISTORY: EVALUATE ALTERED MENTAL STATUS/WEAKNESS COMPARISON STUDY: 02/09/2017 FINDINGS: Mild stable cardiomegaly. Chronic parenchymal prominence left base. Lungs otherwise appear clear. Old fracture right humeral neck IMPRESSION: Chronic change. No acute process. The above report was generated using voice recognition software. It may contain grammatical, syntax or spelling errors. Electronically signed by: Bro Munoz M.D. 02/24/2017 7:09 PM Dictated Date/Time: 02/24/2017 7:08 PM HEAD WITHOUT CONTRAST (CT) CT DOSE: 638.56 mGycm HISTORY: Mental status change EVALUATE ALTERED MENTAL STATUS/WEAKNESS TECHNIQUE: Multiaxial CT images of the head were performed without the use of intravenous contrast. A dose lowering technique was utilized adhering to the principles of ALARA. Comparison: 02/09/2017 Findings: No change the prior exam. The left extra-axial mass is unchanged at approximately 4.1 cm maximum dimension. Considerable left cerebral vasogenic edema is unchanged with unchanged midline shift to the right of 7 mm. Punctate calcifications are again noted. These are unchanged. No evidence for acute intracranial hemorrhage. Impression: No change compared to the prior study. Unchanged left cerebral extra-axial mass with considerable left cerebral edema. Unchanged midline shift to the right. The above report was generated using voice recognition software. It may contain grammatical, syntax or spelling errors. Electronically signed by: Bro Munoz M.D. 02/24/2017 8:01 PM Dictated Date/Time: 02/24/2017 7:57 PM CERVICAL SPINE W/O CT DOSE: 418.06 mGycm HISTORY: Trauma. Pain. fall TECHNIQUE: Multiaxial CT images of the cervical spine were performed and reformatted in the sagittal and coronal plane without the use of contrast. A dose lowering technique was utilized adhering to the principles of ALARA. COMPARISON: 02/09/2017 FINDINGS: No fractures. No subluxation. Prevertebral soft tissues and the C1-C2 interval are intact. No pneumothorax. Moderate degenerative change unaltered from the prior study IMPRESSION: No fractures within the cervical spine. Moderate degenerative change. No change from the prior study. The above report was generated using voice recognition software. It may contain grammatical, syntax or spelling errors. Electronically signed by: Bro Munoz M.D. 02/24/2017 8:05 PM Dictated Date/Time: 02/24/2017 8:03 PM Laboratory Results Test 02/24/17 18:46 Creatine Kinase MB Ratio (0-3.0) Laboratory results per my review. Medications Administered Medications (Trade) Dose Ordered Sig/Silvia Route Start Time Stop Time Status Last Admin Dose Admin Clonazepam (Klonopin Tab) 0.5 mg NOW STAT PO 02/24/17 21:39 02/24/17 21:41 DC 02/24/17 21:39 0.5 MG ECG Indication: other (fall) Rate (beats per minute): 71 Rhythm: normal sinus Findings: no ectopy, other (LVH by voltage criteria, no acute ST segment abnormality) Comparison ECG Date: 11-Feb-2017 Change: no significant change ED Course 1832: The patient was evaluated in room B7. A complete history and physical examination were performed. 1845: NSS 1000 ml @ 999 mls/hr IV. 1899: Adacel Inj 0.5 ml IM, Lidocaine HCl 20 ml INFIL. 1914: Lidocaine HCl 20 ml INFIL. 1999: The laceration was repaired by Joe Banks PA-C. See his note for details. 2047: Upon reevaluation, the patient is resting comfortably. I discussed the results and treatment plan with her and her family. They verbalized agreement of the treatment plan. She was discharged home. 2138: Clonazepam 0.5 mg PO. Medical Decision Prior records/ancillary studies reviewed. Triage Nursing notes reviewed. Additional history obtained from friend. The patient's history was concerning for traumatic injury Differential diagnosis: Etiologies such as fracture, dislocation, intra-abdominal, pneumothorax, intrathoracic , intracranial, neurologic, as well as other traumatic pathologies were entertained. The patient is an 86-year-old female who presented to the emergency department after a fall. The patient had a fall striking the back of her head. She has occipital hematoma as well as a small laceration. The patient has a history of a brain tumor which caused her to fall frequency. The patient's daughter is a physician and called to check on her mother and asked us not to do an extensive workup because the patient's diagnosis is not new and has a history of falling recently and frequently. I discussed the patient's radiographic studies with her. I discussed her condition with her daughter. She was able to be discharged back home and encouraged to continue all medications as prescribed. They were also encouraged to return to emergency department immediately if symptoms change worsen or the need arises Head Trauma GCS Score: 14 Medication Reconcilliation Current Medication List: was personally reviewed by me Blood Pressure Screening Patient's blood pressure: Elevated blood pressure Due to brain tumor. Impression Primary Impression: Fall Additional Impressions: Head injury Scalp laceration Brain tumor Scribe Attestation The scribe's documentation has been prepared under my direction and personally reviewed by me in its entirety. I confirm that the note above accurately reflects all work, treatment, procedures, and medical decision making performed by me. Departure Information Dispostion Home / Self-Care Referrals Raheel Baeza M.D. Forms HOME CARE DOCUMENTATION FORM, IMPORTANT VISIT INFORMATION Patient Instructions ED Head Injury Closed, ED Laceration Scalp Stitch Or Stap, [facility] Additional Instructions Follow-up with your family tomorrow. Continue all medications as prescribed. Have the rosamaria removed in 7-10 days. Problem Qualifiers Primary Impression: Fall Encounter type: initial encounter Qualified Codes: W19.XXXA - Unspecified fall, initial encounter Additional Impressions: Head injury Encounter type: initial encounter Qualified Codes: S09.90XA - Unspecified injury of head, initial encounter Scalp laceration Encounter type: initial encounter Qualified Codes: S01.01XA - Laceration without foreign body of scalp, initial encounter
== END 2017-02-24 21:56 | disposition home or self-care (01) ==
LOC: EDBD 18:11 → C.EDB 18:12
DX: S01.01XA Laceration without foreign body of scalp, initial encounter (principal); W19.XXXA Unspecified fall, initial encounter; W22.09XA Striking against other stationary object, initial encounter; Y92.128 Other place in nursing home as the place of occurrence of the external cause; M19.90 Unspecified osteoarthritis, unspecified site; I10 Essential (primary) hypertension; D32.9 Benign neoplasm of meninges, unspecified; Z79.82 Long term (current) use of aspirin; Z79.899 Other long term (current) drug therapy; Z91.81 History of falling; Z23 Encounter for immunization

== ENCOUNTER 2017-03-04 16:16 | Emergency (ER) | payer BC ==
[~2017-03-04] VITALS: Ht 165.1 cm; Wt 83.0 kg
[~2017-03-04 16:16] MED LIST changes: -BCTO EXT; +BISA10SU3 PR; +MELA3TAB12 PO; +MOML PO; -PENC1CRE4 TOP; +SODIENE PR
[2017-03-04 16:23] VITALS: TEMP 37; Ht 165.1 cm; Wt 83.0 kg
--- NOTE | 2017-03-04 16:54 | EMERGENCY ROOM VISIT NOTE ---
History Report prepared by Darryl: Brayan Ruiz Under the Supervision of: Dr. Sammy Cagle D.O. First contact with patient: 16:27 Chief Complaint: FALL Stated Complaint: FALL, REOPENED WOUND History of Present Illness The patient is a 86 year old female who presents to the Emergency Room with complaints of a fall that occurred recently. She had a recent head injury that required rosamaria to close. The fall that occurred today caused the wound to reopen. She has no other complaints. She did not lose consciousness. Source of History: patient Onset: recently Position: head Symptom Intensity: mild Quality: other (Reopened wound) Timing: constant Associated Symptoms: No LOC Review of Systems See HPI for pertinent positives & negatives. A total of 6 systems reviewed and were otherwise negative. Past Medical & Surgical Medical Problems: (1) Arthritis (2) Hypertension (3) Meningioma (4) Syncope and collapse Family History No pertinent family history Social History Smoking Status: Never Smoker Alcohol Use: none Drug Use: none Marital Status: Housing Status: assisted living Occupation Status: retired Current/Historical Medications Scheduled Aspirin (Aspir-81), 1 TAB PO MWF Cholecalciferol (Vitamin D3), 2 TABS PO DAILY Gabapentin (Neurontin), 100 MG PO QAM Hydrochlorothiazide (Hctz), 25 MG PO DAILY Losartan Potassium (Cozaar), 100 MG PO DAILY Metoprolol Succ (Toprol Xl) (Toprol-Xl), 50 MG PO DAILY Potassium Chloride (Micro-K Ext Rel), 10 MEQ PO DAILY Scheduled PRN Acetaminophen (Tylenol), 500 MG PO Q6H PRN for Pain or Fever Bisacodyl (Dulcolax), 1 SUPP [place] Q2D PRN for Constipation Clonazepam (Klonopin), 0.5 MG PO HS PRN for Docusate Sodium (Colace), 1 CAP PO QAM PRN for Constipation Magnesium Hydroxide (Milk Of Magnesia), 30 ML PO Q2H PRN for Constipation Melatonin-Pyridoxine (Melatonin), 1 MG PO HS PRN for Sleep Sodium Phosphate/Biphosphate (Fleet Enema), 1 EA [place] Q72HRS PRN for Constipation Allergies Coded Allergies: Lorazepam (Verified Allergy, Unknown, unknown, 02/09/17) Physical Exam Vital Signs Date Time Temp Pulse Resp B/P (MAP) Pulse Ox O2 Delivery O2 Flow Rate FiO2 8/5/17 16:23 37.0 128 20 136/83 97 Room Air Physical Exam CONSTITUTIONAL/VITAL SIGNS: Reviewed / noted above. GENERAL: Non-toxic in appearance. INTEGUMENTARY: Warm, dry, and [place]. HEAD: Normocephalic. Wound to the apex of the head that is slightly gapping, minimal bleeding, about 5 cm in length, V-shaped. EYES: without scleral icterus or trauma. ENT/OROPHARYNX: clear and moist. LYMPHADENOPATHY/NECK: Is supple without lymphadenopathy or meningismus. RESPIRATORY: Lungs clear and equal. CARDIOVASCULAR: Regular rate and rhythm. GI/ABDOMEN: Soft and nontender. No organomegaly or pulsatile mass. No rebound or guarding. Normal bowel sounds. EXTREMITIES: Warm and well perfused. BACK: No CVA tenderness. NEUROLOGICAL: Intact without focal deficits. PSYCHIATRIC: normal affect. MUSCULOSKELETAL: Normally developed with good muscle tone. Medical Decision & Procedures Procedure Location: Posterior apex of the head Total length: 5 cm Complexity: Simple Verbal consent was obtained after the risks and benefits were explained, including but not limited to bleeding, scarring, infection, pain, and bone/joint /nerve damage. At this time, the risks of the procedure are less than the risks of NOT performing the procedure. A time out was taken and the correct patient and site identified. The skin was prepped with betadine. The target area was not anesthetized. Copious irrigation was performed using normal saline. The skin was re-prepped with betadine and a sterile field set. The wound was explored for foreign bodies and none found. Examination revealed no injury to deep structures such as tendons, bone, or significant blood vessels. Debridement was not performed. The wound edges were approximated using 5, 4-0 simple interrupted nylon sutures. Hemostasis and excellent approximation was achieved. Antibacterial ointment and a sterile dressing applied. Detailed wound care instructions and signs and symptoms of infection reviewed with the patient. No complications and the patient tolerated the procedure well. ED Course 1627: Previous medical records were reviewed. The patient was evaluated in room A12. A complete history and physical examination was performed. 1640: At this time, I performed a laceration repair procedure. Please see the procedure note for further information. 1700: On reevaluation, the patient is resting. I discussed the results and findings with the patient. She verbalized agreement of the treatment plan. She was discharged home. Medical Decision Differential includes close head injury, intracranial bleed, facial trauma, cervical spine trauma, chest and thoracic trauma, abdominal and intra-abdominal trauma, spine neurologic trauma, extremity trauma. This is an 86-year-old female who presents to the emergency department with a chief complaint of reopening of a wound in the posterior apex of the head. The patient had a wound in the posterior apex of the head that have been stable recently. The rosamaria have been removed. The patient reportedly fell today causing a reopening of the wound. The wound is somewhat gaping and due to the recent rosamaria, has soft and somewhat macerated skin in the area of the laceration. 5 sutures were used to approximate the wound adequately. There was no active bleeding or contamination. The patient was felt to be stable for discharge. She is a DO NOT RESUSCITATE/ POLST paperwork with her. CT scan of the brain was not performed due to this reason. She is currently awake and alert and oriented to self and place and has no headaches or other complaints of injury. Medication Reconcilliation Current Medication List: was personally reviewed by me Blood Pressure Screening Patient's blood pressure: Normal blood pressure Blood pressure disposition: Did not require urgent referral Impression Primary Impression: Fall Additional Impression: Scalp laceration Scribe Attestation The scribe's documentation has been prepared under my direction and personally reviewed by me in its entirety. I confirm that the note above accurately reflects all work, treatment, procedures, and medical decision making performed by me. Departure Information Dispostion Home / Self-Care Referrals Raheel Baeza M.D. (PCP) Forms HOME CARE DOCUMENTATION FORM, IMPORTANT VISIT INFORMATION Patient Instructions [facility] Additional Instructions Sutures to be removed by your doctor in 10-14 days. Follow-up with your doctor for further care and evaluation in 1-2 days. Return to the emergency department for worsening or new symptoms or any concerns. You have been examined and treated today on an emergency basis only. This is not a substitute for, or an effort to provide, complete comprehensive medical care. It is impossible to recognize and treat all injuries or illnesses in a single emergency department visit. It is therefore important that you follow up closely with your doctor. Call as soon as possible for an appointment. Problem Qualifiers
[2017-03-04 17:47] VITALS: BP 123/82; PULSE 130; O2SAT 100
== END 2017-03-04 17:52 | disposition home or self-care (01) ==
LOC: EDBD 16:16 → C.EDA 16:18
DX: S01.01XA Laceration without foreign body of scalp, initial encounter (principal); W19.XXXA Unspecified fall, initial encounter; Y92.129 Unspecified place in nursing home as the place of occurrence of the external cause; M19.90 Unspecified osteoarthritis, unspecified site; I10 Essential (primary) hypertension; Z86.011 Personal history of benign neoplasm of the brain; Z79.82 Long term (current) use of aspirin; Z79.899 Other long term (current) drug therapy

== ENCOUNTER → 2017-04-18 | Outpatient (CLI) | payer BC ==
[~2017-04-18] MED LIST changes: +DILT120C68 PO; +DXM1 PO; +LEVE250T PO; +METO100T14 PO
[2017-04-18 09:46] LABS: HEMATOCRIT 38.4 % (37-47); MEAN CORPUSCULAR HEMOGLOBIN 32.3 pg (25-34); MEAN CORPUSCULAR HGB CONC 33.6 g/dl (32-36); MEAN PLATELET VOLUME 9.3 fL (7.4-10.4); PLATELET COUNT 278 K/uL (130-400); WHITE BLOOD COUNT 5.08 K/uL (4.8-10.8)
[2017-04-18 10:01] LABS: BLOOD UREA NITROGEN 18 mg/dl (7-18); BUN/CREATININE RATIO 31.3 (10-20); CALCIUM 8.6 mg/dl (8.5-10.1); CARBON DIOXIDE 25 mmol/L (21-32); CHLORIDE 103 mmol/L (98-107); CREATININE 0.57 mg/dl (0.60-1.20); GLUCOSE 92 mg/dl (70-99); POTASSIUM 3.9 mmol/L (3.5-5.1); SODIUM 134 mmol/L (136-145)
== END | disposition home or self-care (01) ==
LOC: C.LABFOXDH 09:15
PROVIDERS: ATTEND Internal Medicine
DX: I48.91 Unspecified atrial fibrillation (principal)

== ENCOUNTER → 2017-04-20 | Outpatient (CLI) | payer BC | END | disposition home or self-care (01) | LOC: C.MAMM 12:21 | PROVIDERS: ATTEND Internal Medicine | DX: M85.88 Other specified disorders of bone density and structure, other site (principal); M85.839 Other specified disorders of bone density and structure, unspecified forearm ==

== ENCOUNTER → 2017-04-21 | Outpatient (CLI) | payer BC ==
[2017-04-21 12:41] LABS: BLOOD UREA NITROGEN 26 mg/dl (7-18); BUN/CREATININE RATIO 40.4 (10-20); CALCIUM 8.1 mg/dl (8.5-10.1); CARBON DIOXIDE 24 mmol/L (21-32); CHLORIDE 104 mmol/L (98-107); CREATININE 0.65 mg/dl (0.60-1.20); GLUCOSE 84 mg/dl (70-99); POTASSIUM 3.8 mmol/L (3.5-5.1); SODIUM 137 mmol/L (136-145)
== END | disposition home or self-care (01) ==
LOC: C.LABFOXDH 12:11
PROVIDERS: ATTEND Nurse Practitioner Family
DX: I50.9 Heart failure, unspecified (principal)

== ENCOUNTER 2017-04-28 09:58 | Emergency (ER) | payer BC ==
[~2017-04-28] VITALS: Ht 162.6 cm; Wt 91.6 kg
[~2017-04-28 09:58] MED LIST changes: -DILT120C68 PO; -DXM1 PO; -LEVE250T PO; -METO100T14 PO
[2017-04-28 10:07] VITALS: TEMP 36.6; O2SAT 95; Ht 162.6 cm; Wt 91.6 kg
[2017-04-28] MEDS ORDERED: LEVE250T PO (10:33)
[2017-04-28] MEDS ORDERED: DILT120C68 PO (10:33)
[2017-04-28] MEDS ORDERED: DXM1 PO (10:33)
[2017-04-28] MEDS ORDERED: METO100T14 PO (10:33)
[2017-04-28 10:54] LABS: BASO % 0.1 %; BASO ABS # 0.01 K/uL (0-0.2); COMPLETE YES; EOS % 0.6 %; HEMATOCRIT 42.3 % (37-47); IG% 0.4 %; LYMPH % 12.6 %; LYMPH ABS # 0.98 K/uL (1.2-3.4); MEAN CELL VOLUME 96.6 fL (80-100); MEAN CORPUSCULAR HEMOGLOBIN 33.1 pg (25-34); MEAN CORPUSCULAR HGB CONC 34.3 g/dl (32-36); MEAN PLATELET VOLUME 8.8 fL (7.4-10.4); MONO % 9.1 %; NEUT % 77.2 %; PLATELET COUNT 285 K/uL (130-400); RED BLOOD COUNT 4.38 M/uL (4.2-5.4)
[2017-04-28 11:04] LABS: URINE APPEARANCE CLEAR (CLEAR); URINE BILIRUBIN NEG (NEG); URINE COLOR YELLOW; URINE EPITHELIAL CELL AUTO 0-5 /lpf (0-5); URINE NITRITE NEG (NEG); URINE SPECIFIC GRAVITY 1.017 (1.000-1.030); UROBILINOGEN NEG (NEG); ZZURINE CULT IF INDIC CATH NO
[2017-04-28 11:09] LABS: MANUAL MICROSCOPIC REQUIRED? NO; REVIEW REQ? NO
[2017-04-28 11:11] LABS: BUN/CREATININE RATIO 29.1 (10-20); CALCIUM 8.8 mg/dl (8.5-10.1); CREATININE 0.89 mg/dl (0.60-1.20); POTASSIUM 3.3 mmol/L (3.5-5.1)
--- NOTE | 2017-04-28 11:19 | DIAGNOSTIC IMAGING REPORT ---
CHEST ONE VIEW PORTABLE CLINICAL HISTORY: Trauma. Possible seizure. COMPARISON STUDY: 02/16/2017 FINDINGS: The heart is enlarged. There is mild central pulmonary vascular congestion. There is no lobar consolidation. There is a probable small right pleural effusion. There is an old right proximal humeral deformity.[ IMPRESSION: Cardiomegaly and mild pulmonary vascular congestion. Suspected small right pleural effusion. Electronically signed by: Usman Forbes M.D. 04/28/2017 11:17 AM Dictated Date/Time: 04/28/2017 11:17 AM
[2017-04-28 11:21] LABS: ALB/GLOB RATIO 0.9 (0.9-2); CKMB/CK RATIO 3.1 (0-3.0); THYROID STIMULATING HORMONE 1.78 uIu/ml (0.300-4.500)
--- NOTE | 2017-04-28 12:38 | EMERGENCY ROOM VISIT NOTE ---
History Report prepared by Darryl: Rayna Caicedo Under the Supervision of: Dr. Raymond Mccoy M.D. First contact with patient: 11:30 Chief Complaint: FALL Stated Complaint: FALL/LACERATION History of Present Illness The patient is an 86 year old female who presents to the Emergency Room with complaints of a sudden fall that occurred prior to arrival. She currently rates her discomfort as a 5/10 in severity. Per nursing staff, the patient has a history of a meningioma. Nursing staff reports that the patient was found standing in the doorway staring off into space. Nursing staff reports that the patient then fell and hit her head off the doorway. Nursing staff notes that the patient may have had a possible seizure, noting increased confusion. The patient reports back pain today. Nursing staff reports that the patient is on Keppra 250 mg twice per day. The history is limited secondary to the patient's dementia. Source of History: patient, prison notes History Limited By: dementia Onset: prior to arrival Position: other (global) Symptom Intensity: 5/10 Quality: other (fall) Timing: other (sudden) Associated Symptoms: + back pain Review of Systems The history is limited secondary to the patient's dementia. Past Medical & Surgical Medical Problems: (1) Arthritis (2) Hypertension (3) Meningioma (4) Syncope and collapse Family History No pertinent family history Social History Smoking Status: Never Smoker Alcohol Use: none Drug Use: none Marital Status: Housing Status: assisted living Occupation Status: retired Current/Historical Medications Scheduled Aspirin (Aspir-81), 1 TAB PO MWF Cholecalciferol (Vitamin D3), 2 TABS PO DAILY Dexamethasone (Dexamethasone), 1 MG PO BID Diltiazem Hcl Ext Rel (Tiazac), 120 MG PO QAM Levetiracetam (Keppra), 250 MG PO BID Metoprolol Tartrate (Lopressor) (Lopressor), 100 MG PO BID Potassium Chloride (Micro-K Ext Rel), 10 MEQ PO DAILY Scheduled PRN Acetaminophen (Tylenol), 500 MG PO Q6H PRN for Pain or Fever Bisacodyl (Dulcolax), 1 SUPP OR Q2D PRN for Constipation Clonazepam (Klonopin), 0.5 MG PO HS PRN for Docusate Sodium (Colace), 1 CAP PO QAM PRN for Constipation Magnesium Hydroxide (Milk Of Magnesia), 30 ML PO Q2H PRN for Constipation Melatonin-Pyridoxine (Melatonin), 1 MG PO HS PRN for Sleep Sodium Phosphate/Biphosphate (Fleet Enema), 1 EA OR Q72HRS PRN for Constipation Allergies Coded Allergies: Lorazepam (Verified Allergy, Unknown, unknown, 04/28/17) Physical Exam Vital Signs Date Time Temp Pulse Resp B/P (MAP) Pulse Ox O2 Delivery O2 Flow Rate FiO2 04/28/17 14:10 66 18 174/84 94 Room Air 04/28/17 13:30 68 04/28/17 12:50 65 18 184/90 93 Room Air 04/28/17 11:59 66 18 176/113 95 Room Air 04/28/17 11:15 58 20 151/81 97 Room Air 04/28/17 10:13 65 04/28/17 10:07 95 Room Air 04/28/17 10:07 36.6 65 18 173/88 95 Room Air Physical Exam GENERAL: Patient awake, alert, oriented to time, not to place, and not to person. She is a little bit confused and very repetitive. SKIN: No erythema, pallor, cyanosis or rash HEENT: 3.5 cm laceration to the right mid occiput. Pupils equal, reactive to light and accommodation. Ears normal. Oral cavity and posterior pharynx appear normal. Neck: Without adenopathy, no neck vein distention. LUNGS: Clear to auscultation. No wheezes, no rales, no rhonchi. HEART: No murmurs. No gallops. No rubs ABDOMEN: Midline lower abdominal scar that is well healed. No masses, no rebound, no hepatomegaly or splenomegaly. BACK: Bruise on the mid lower back at the L2-L3 area that is 4 cm in diameter. EXTREMITIES: Large bruise on the left hip and left knee. NEUROLOGIC: Cranial nerves II-XII within normal limits. No gross motor sensory function deficits. Medical Decision & Procedures ER Provider Diagnostic Interpretation: Radiology results as stated below per my review and radiologist interpretation: CHEST ONE VIEW PORTABLE CLINICAL HISTORY: Trauma. Possible seizure. COMPARISON STUDY: 02/16/2017 FINDINGS: The heart is enlarged. There is mild central pulmonary vascular congestion. There is no lobar consolidation. There is a probable small right pleural effusion. There is an old right proximal humeral deformity.[ IMPRESSION: Cardiomegaly and mild pulmonary vascular congestion. Suspected small right pleural effusion. Electronically signed by: Usman Forbes M.D. 04/28/2017 11:17 AM Dictated Date/Time: 04/28/2017 11:[address] HEAD WITHOUT CONTRAST (CT) CLINICAL HISTORY: Posterior head trauma. Altered mental status. History of meningioma. COMPARISON STUDY: 02/24/2017 TECHNIQUE: Axial CT of the brain is performed from the vertex to the skull base. IV contrast was not administered for this examination. A dose lowering technique was utilized adhering to the principles of ALARA. CT DOSE: 844.62 mGy.cm FINDINGS: There are persistent left frontal and temporal lobe extra-axial masses, with underlying reactive calvarial changes. The findings are suggestive of meningiomas. There is extensive left hemispheric vasogenic edema. There is 8 mm of left to right midline shift. There is a tiny left-sided extra-axial fluid collection measuring less than 3 mm. There is no evidence of acute parenchymal hemorrhage No calvarial fractures are visualized. There is no evidence of pathologic ventricular dilatation. There is no evidence of acute sinusitis IMPRESSION: 1. Tiny left extra-axial fluid collection which has developed since the prior study. This measures less than 3 mm in thickness. 2. Persistent left frontotemporal extra-axial mass, consistent with the patient's known meningioma. There is persistent extensive left hemispheric vasogenic edema with 8 mm of right to left midline shift. Electronically signed by: Usman Forbes M.D. 04/28/2017 12:46 PM Dictated Date/Time: 04/28/2017 12:41 PM Laboratory Results 04/28/17 10:39 Red Blood Count 4.38, Mean Corpuscular Volume 96.6, Mean Corpuscular Hemoglobin 33.1, Mean Corpuscular Hemoglobin Concent 34.3, Mean Platelet Volume 8.8, Neutrophils (%) (Auto) 77.2, Lymphocytes (%) (Auto) 12.6, Monocytes (%) (Auto) 9.1, Eosinophils (%) (Auto) 0.6, Basophils (%) (Auto) 0.1, Neutrophils # (Auto) 6.02, Lymphocytes # (Auto) 0.98, Monocytes # (Auto) 0.71, Eosinophils # (Auto) 0.05, Basophils # (Auto) 0.01 04/28/17 10:39 Test 04/28/17 10:25 04/28/17 10:39 04/28/17 10:52 Urine Color YELLOW Urine Appearance CLEAR (CLEAR) Urine pH 7.0 (4.5-7.5) Urine Specific [place] 1.017 (1.000-1.030) Urine Protein NEG (NEG) Urine Glucose (UA) NEG (NEG) Urine Ketones NEG (NEG) Urine Occult Blood NEG (NEG) Urine Nitrite NEG (NEG) Urine Bilirubin NEG (NEG) Urine Urobilinogen NEG (NEG) Urine Leukocyte Esterase NEG (NEG) Urine WBC (Auto) 0 /hpf (0-5) Urine RBC (Auto) 0-4 /hpf (0-4) Urine Hyaline Casts (Auto) 1-5 /lpf (0-5) Urine Epithelial Cells (Auto) 0-5 /lpf (0-5) Urine Bacteria (Auto) NEG (NEG) White Blood Count 7.80 K/uL (4.8-10.8) Red Blood Count 4.38 M/uL (4.2-5.4) Hemoglobin 14.5 g/dL (12.0-16.0) Hematocrit 42.3 % (37-47) Mean Corpuscular Volume 96.6 fL (80-100) Mean Corpuscular Hemoglobin 33.1 pg (25-34) Mean Corpuscular Hemoglobin Concent 34.3 g/dl (32-36) Platelet Count 285 K/uL (130-400) Mean Platelet Volume 8.8 fL (7.4-10.4) Neutrophils (%) (Auto) 77.2 % Lymphocytes (%) (Auto) 12.6 % Monocytes (%) (Auto) 9.1 % Eosinophils (%) (Auto) 0.6 % Basophils (%) (Auto) 0.1 % Neutrophils # (Auto) 6.02 K/uL (1.4-6.5) Lymphocytes # (Auto) 0.98 K/uL (1.2-3.4) Monocytes # (Auto) 0.71 K/uL (0.11-0.59) Eosinophils # (Auto) 0.05 K/uL (0-0.5) Basophils # (Auto) 0.01 K/uL (0-0.2) RDW Standard Deviation 51.2 fL (36.4-46.3) RDW Coefficient of Variation 14.5 % (11.5-14.5) Immature Granulocyte % (Auto) 0.4 % Immature Granulocyte # (Auto) 0.03 K/uL (0.00-0.02) Anion Gap 9.0 mmol/L (3-11) Est Creatinine Clear Calc Drug Dose 49.8 ml/min Estimated GFR () 68.0 Estimated GFR (Non- 58.7 BUN/Creatinine Ratio 29.1 (10-20) Calcium Level 8.8 mg/dl (8.5-10.1) Total Bilirubin 0.8 mg/dl (0.2-1) Aspartate Amino Transf (AST/SGOT) 17 U/L (15-37) Alanine Aminotransferase (ALT/SGPT) 27 U/L (12-78) Alkaline Phosphatase 58 U/L (45-117) Total Creatine Kinase 108 U/L (26-192) Creatine Kinase MB 3.3 ng/ml (0.5-3.6) Creatine Kinase MB Ratio 3.1 (0-3.0) Total Protein 7.0 gm/dl (6.4-8.2) Albumin 3.4 gm/dl (3.4-5.0) Globulin 3.6 gm/dl (2.5-4.0) Albumin/Globulin Ratio 0.9 (0.9-2) Thyroid Stimulating Hormone (TSH) 1.780 uIu/ml (0.300-4.500) Bedside Troponin I < 0.030 ng/ml (0-0.045) Laboratory results as stated above per my review. Procedure Location: Scalp Total length: 3.5 cm Complexity: Simple Verbal consent was obtained . The wound was explored for foreign bodies and none found. Debridement was not performed. The wound edges were approximated using 4 surgical ella in the standard fashion. Hemostasis and excellent approximation was achieved. No complications and the patient tolerated the procedure well. ECG Indication: altered mental status Rate (beats per minute): 65 Rhythm: atrial flutter Findings: nonspecific-ST abn, other (4 to 1 block) ED Course 1130: Past medical records reviewed. The patient was evaluated in room A3. A complete history and physical examination was performed by the medical student. 1203: Past medical records reviewed. The patient was evaluated in room A3. A complete history and physical examination was performed. 1219: Per nursing staff, the patients repetition is new according to Artis. 1321: I discussed the patients case with Artis Arcos. He states that they have been attempting medical management because in the past she has refused surgical intervention in the past. He states that as long as the patients daughter agrees, he will take the patient back to their facility and continue medical management. 1333: Under my supervision, the patients scalp laceration was repaired by the medical student. See procedure note for further detail. 1400: We tried to contact the patients daughter, Dr. Vanessa Dodd. We left her a message to call back. I reevaluated the patient and she is doing well. She will be transferred back to [facility] shortly. Medical Decision Nurses notes reviewed. Medical history sheet reviewed. Differential diagnosis includes but is not limited to: Seizure, infection, UTI, brain tumor, hematoma, stroke, TIA. Multiple labs, EKG and imaging were obtained. Please see above. The patient's CT seems to be getting worse. She has more edema. The patient is in atrial flutter. She has had flutter in the past. The patient is here with some confusion and a recent fall. She has a prior history of a meningioma. The patient's mental status has been declining gradually over the past few months. I discussed this with the patient and with a close friend who lives with her at [facility]. I also discussed care with Dr. Baeza who was been managing her at that facility. I attempted to call the patient's daughter but we are unable to reach her on her cell phone. The patient will be allowed to return to [facility] where she will continue the same management under closer supervision. Medication Reconcilliation Current Medication List: was personally reviewed by me Blood Pressure Screening Patient's blood pressure: Elevated blood pressure Blood pressure disposition: Referred to PCP Consults Time Called: 1318 Consulting Physician: Artis Arcos Returned Call: [phone] I discussed the patients case with Artis Arcos. He states that they have been attempting medical management because in the past she has refused surgical intervention in the past. He states that as long as the patients daughter agrees, he will take the patient back to their facility and continue medical management. Impression Primary Impression: Altered mental status Additional Impressions: Fall Contusion of multiple sites Cerebral edema Hypokalemia Atrial flutter Scribe Attestation The scribe's documentation has been prepared under my direction and personally reviewed by me in its entirety. I confirm that the note above accurately reflects all work, treatment, procedures, and medical decision making performed by me. Departure Information Dispostion Home / Self-Care Referrals Eulogio Wisdom (PCP) Raheel Baeza M.D. Forms HOME CARE DOCUMENTATION FORM, IMPORTANT VISIT INFORMATION Patient Instructions ED Wound Care, My [facility] Additional Instructions Continue all of your current medications as prescribed. Ella should be removed in approximately 7 days. Return here sooner if you note any signs of infection. Problem Qualifiers
--- NOTE | 2017-04-28 12:48 | DIAGNOSTIC IMAGING REPORT ---
CT HEAD WITHOUT CONTRAST (CT) CLINICAL HISTORY: Posterior head trauma. Altered mental status. History of meningioma. COMPARISON STUDY: 02/24/2017 TECHNIQUE: Axial CT of the brain is performed from the vertex to the skull base. IV contrast was not administered for this examination. A dose lowering technique was utilized adhering to the principles of ALARA. CT DOSE: 844.62 mGy.cm FINDINGS: There are persistent left frontal and temporal lobe extra-axial masses, with underlying reactive calvarial changes. The findings are suggestive of meningiomas. There is extensive left hemispheric vasogenic edema. There is 8 mm of left to right midline shift. There is a tiny left-sided extra-axial fluid collection measuring less than 3 mm. There is no evidence of acute parenchymal hemorrhage No calvarial fractures are visualized. There is no evidence of pathologic ventricular dilatation. There is no evidence of acute sinusitis IMPRESSION: 1. Tiny left extra-axial fluid collection which has developed since the prior study. This measures less than 3 mm in thickness. 2. Persistent left frontotemporal extra-axial mass, consistent with the patient's known meningioma. There is persistent extensive left hemispheric vasogenic edema with 8 mm of right to left midline shift. Electronically signed by: Usman Forbes M.D. 04/28/2017 12:46 PM Dictated Date/Time: 04/28/2017 12:41 PM
[2017-04-28 14:10] VITALS: BP 174/84; PULSE 66; O2SAT 94
== END 2017-04-28 15:15 | disposition home or self-care (01) ==
LOC: EDBD 09:58 → C.EDA 09:59
DX: S00.83XA Contusion of other part of head, initial encounter (principal); W19.XXXA Unspecified fall, initial encounter; G93.6 Cerebral edema; E87.6 Hypokalemia; I48.92 Unspecified atrial flutter; R41.82 Altered mental status, unspecified; I10 Essential (primary) hypertension; M19.90 Unspecified osteoarthritis, unspecified site; Z79.82 Long term (current) use of aspirin; Z79.899 Other long term (current) drug therapy; Z88.8 Allergy status to other drugs, medicaments and biological substances

== ENCOUNTER → 2017-05-09 | Outpatient (CLI) | payer BC ==
[~2017-05-09] MED LIST changes: +CEFD300C3 PO; +CRDCD120 PO; +DILT120C68 PO; +DMD20 PO; +DXM1 PO; -GABA1CAP PO; -HYDR25TA4 PO; +LEVE250T PO; +LNX125 PO; -LOSA100T65 PO; +METO100T14 PO; -METO50TA7 PO; +NEOMOIN2 TOP; +SALI0.6593 NAE
[2017-05-09 08:26] LABS: BLOOD UREA NITROGEN 39 mg/dl (7-18); BUN/CREATININE RATIO 50.7 (10-20); CALCIUM 7.9 mg/dl (8.5-10.1); CARBON DIOXIDE 28 mmol/L (21-32); CHLORIDE 105 mmol/L (98-107); CREATININE 0.76 mg/dl (0.60-1.20); GLUCOSE 88 mg/dl (70-99); POTASSIUM 3.6 mmol/L (3.5-5.1); SODIUM 139 mmol/L (136-145)
== END | disposition home or self-care (01) ==
LOC: C.LABFOXDH 07:43
PROVIDERS: ATTEND Internal Medicine
DX: I10 Essential (primary) hypertension (principal); Z92.29 Personal history of other drug therapy

== ENCOUNTER 2017-05-23 20:13 | Inpatient (IN) | payer BC, OTHER ==
[~2017-05-23] VITALS: Ht 160 cm; Wt 89.0 kg
[~2017-05-23 20:13] MED LIST changes: -CEFD300C3 PO; -CRDCD120 PO; -DMD20 PO; -LNX125 PO; -NEOMOIN2 TOP; -SALI0.6593 NAE
[2017-05-23] MEDS ORDERED: CEFTRIAXONE SOD INJ 1 GM ADDVIAL IV STA (20:21)
[2017-05-23] MEDS ORDERED: ONDANSETRON INJ 2 MG/ML 2 ML VIAL IV STA (20:21)
[2017-05-23] MEDS ORDERED: VANCOMYCIN INJ 0 MG in SODIUM CHLORIDE 0.9% 500ML 500 ML IV STA (20:21)
[2017-05-23] MEDS ORDERED: MoRPHine SULFATE 2 MG/ML CARP IV STA (20:21)
[2017-05-23] MEDS ORDERED: MoRPHine SULFATE 2 MG/ML CARP IV PRN (20:30)
--- NOTE | 2017-05-23 20:32 | EMERGENCY ROOM VISIT NOTE ---
History First contact with patient: 20:19 Chief Complaint: LEG PAIN,LEG INJURY Stated Complaint: FALL/LEG PAIN History of Present Illness The patient is a 86 year old female who presents to the Emergency Room with complaints of left leg pain. Per EMS the patient fell a week ago as well as yesterday. She is complaining of severe pain to her Left lower extremity. The patient does not know where she is coming from and is only complaining of the pain to her left leg. Review of Systems See HPI for pertinent positives & negatives. A total of 10 systems reviewed and were otherwise negative. Past Medical/Surgical History Medical Problems: (1) Arthritis (2) Cellulitis of leg (3) Frequent falls (4) Hypertension (5) Meningioma (6) Syncope and collapse Family History No pertinent family history Social History Smoking Status: Never Smoker Alcohol Use: none Drug Use: none Marital Status: Housing Status: assisted living Occupation Status: retired Current/Historical Medications Scheduled Aspirin (Aspir-81), 1 TAB PO MWF Cholecalciferol (Vitamin D3), 2,000 UNITS PO DAILY Dexamethasone (Dexamethasone), 1.5 MG PO BID Digoxin (Digoxin), 0.125 MG PO HS Diltiazem HCl (Diltiazem Cd), 120 MG PO QAM Levetiracetam (Keppra), 250 MG PO BID Metoprolol Tartrate (Lopressor) (Lopressor), 100 MG PO BID Neomycin/Polymyx/Bacitr (Neosporin), 1 APPLN TOP HS Potassium Chloride (Micro-K Ext Rel), 10 MEQ PO DAILY Torsemide (Torsemide), 10 MG PO DAILY Scheduled PRN Acetaminophen (Tylenol), 500 MG PO Q6H PRN for Pain or Fever Bisacodyl (Dulcolax), 1 SUPP PA Q2D PRN for Constipation Clonazepam (Klonopin), 0.5 MG PO HS PRN for SEIZURES Docusate Sodium (Colace), 100 MG PO QAM PRN for Constipation Magnesium Hydroxide (Milk Of Magnesia), 30 ML PO Q2H PRN for Constipation Melatonin-Pyridoxine (Melatonin), 1 MG PO HS PRN for Sleep Saline (Cvs Saline Nose [place]), 1 SPRAY [place]MER DAILY PRN for Nasal Congestion Sodium Phosphate/Biphosphate (Fleet Enema), 1 EA PA Q72HRS PRN for Constipation Physical Exam Vital Signs Date Time Temp Pulse Resp B/P (MAP) Pulse Ox O2 Delivery O2 Flow Rate FiO2 05/23/17 22:03 78 18 129/96 98 Room Air 05/23/17 21:21 68 18 154/72 98 Room Air 05/23/17 20:32 68 05/23/17 20:30 97 Room Air 05/23/17 20:30 97 Room Air 05/23/17 20:30 37.2 99 20 140/69 97 Room Air Physical Exam GENERAL: Patient is a healthy-appearing well-nourished female HEAD: Normocephalic atraumatic EYES: Ocular movements intact pupils equal and react to light OROPHARYNX mucous membranes are moist no exudates present no erythema or edema present NECK: Supple no nuchal rigidity CHEST: Good equal expansion LUNGS: Clear and equal to auscultation CARDIAC: Normal S1 and S2 ABDOMEN: Soft nontender no guarding BACK: No CVA tenderness EXTREMITIES: No pain upon palpation normal muscle strength in all groups +2 pitting edema, large amount of erythema to LLE extremely painful to touch, neurovascularly intact NEURO: Patient is following commands is answering questions appropriately. Alert and oriented x3 Cranial Nerves 2-12 grossly intact Medical Decision & Procedures ER Provider Diagnostic Interpretation: CHEST ONE VIEW PORTABLE HISTORY: Leg swelling. COMPARISON: Chest 04/28/2017. FINDINGS: The cardiac silhouette remains mildly enlarged. No pleural effusions. No pneumothorax. No focal lung consolidations to suggest pneumonia. No evidence for pulmonary edema. Old, healed right humeral neck fracture. IMPRESSION: Stable mild cardiomegaly. No evidence for pulmonary edema. Electronically signed by: Rigo Osman M.D. 05/23/2017 9:27 PM Dictated Date/Time: 05/23/2017 9:26 PM LEFT FOOT 3 VIEWS HISTORY: Left foot pain. COMPARISON: None. FINDINGS: There is no fracture or dislocation. The bones are osteopenic. Soft tissue swelling within the midfoot and hindfoot. Posterior and plantar calcaneal spurs. Mild degenerative changes within the left foot. The Lisfranc joint is well aligned. No radiopaque foreign bodies. IMPRESSION: Soft tissue swelling. No fractures within the left foot. Electronically signed by: Rigo Osman M.D. 05/23/2017 9:24 PM Dictated Date/Time: 05/23/2017 9:21 PM L TIBIA/FIBULA 2 VIEWS ROUTINE CLINICAL HISTORY: Left leg swelling. COMPARISON STUDY: None. FINDINGS: No fracture or dislocation within the left tibia or fibula. Diffuse soft tissue swelling within the left lower leg. No radiopaque foreign bodies. The bones are osteopenic. IMPRESSION: Diffuse soft tissue swelling. No fractures within the left lower leg. Electronically signed by: Rigo Osman M.D. 05/23/2017 9:26 PM Dictated Date/Time: 05/23/2017 9:25 PM Laboratory Results Test 05/23/17 20:49 05/23/17 21:00 Bedside Glucose 124 mg/dl (70-90) Immature Granulocyte % (Auto) 0.3 % White Blood Count 11.64 K/uL (4.8-10.8) Red Blood Count 3.99 M/uL (4.2-5.4) Hemoglobin 12.9 g/dL (12.0-16.0) Hematocrit 37.9 % (37-47) Mean Corpuscular Volume 95.0 fL (80-100) Mean Corpuscular Hemoglobin 32.3 pg (25-34) Mean Corpuscular Hemoglobin Concent 34.0 g/dl (32-36) Platelet Count 214 K/uL (130-400) Mean Platelet Volume 9.3 fL (7.4-10.4) Neutrophils (%) (Auto) 86.7 % Lymphocytes (%) (Auto) 6.4 % Monocytes (%) (Auto) 6.4 % Eosinophils (%) (Auto) 0.2 % Basophils (%) (Auto) 0.0 % Neutrophils # (Auto) 10.10 K/uL (1.4-6.5) Lymphocytes # (Auto) 0.74 K/uL (1.2-3.4) Monocytes # (Auto) 0.75 K/uL (0.11-0.59) Eosinophils # (Auto) 0.02 K/uL (0-0.5) Basophils # (Auto) 0.00 K/uL (0-0.2) Immature Granulocyte # (Auto) 0.03 K/uL (0.00-0.02) Total Bilirubin 0.6 mg/dl (0.2-1) Direct Bilirubin mg/dl (0-0.2) Aspartate Amino Transf (AST/SGOT) 24 U/L (15-37) Alanine Aminotransferase (ALT/SGPT) 32 U/L (12-78) Alkaline Phosphatase 57 U/L (45-117) Total Creatine Kinase 87 U/L (26-192) Creatine Kinase MB 3.3 ng/ml (0.5-3.6) Creatine Kinase MB Ratio 3.8 (0-3.0) Troponin I 0.027 ng/ml (0-0.045) Total Protein 5.8 gm/dl (6.4-8.2) Albumin 2.8 gm/dl (3.4-5.0) Thyroid Stimulating Hormone (TSH) 0.844 uIu/ml (0.300-4.500) Chemistry Specimen Hemolysis Digoxin Level 0.4 ng/ml (0.8-2.0) Medications Administered Medications (Trade) Dose Ordered Sig/Silvia Route Start Time Stop Time Status Last Admin Dose Admin Ceftriaxone Sodium (Rocephin Inj) 1 gm NOW STAT IV 05/23/17 20:21 05/23/17 20:26 DC 05/23/17 21:06 1 GM Morphine Sulfate (MoRPHine SULFATE INJ) 2 mg NOW STAT IV 05/23/17 20:21 05/23/17 20:26 DC 05/23/17 21:06 2 MG Morphine Sulfate (MoRPHine SULFATE INJ) 2 mg Q1HWA PRN IV 05/23/17 20:30 05/24/17 01:14 DC 05/23/17 22:15 2 MG Ondansetron HCl (Zofran Inj) 4 mg NOW STAT IV 05/23/17 20:21 05/23/17 20:26 DC 05/23/17 21:05 4 MG Haloperidol (Haldol Tab) 5 mg NOW STAT PO 05/23/17 22:18 05/23/17 22:19 DC 05/23/17 22:35 5 MG Clonazepam (Klonopin Tab) 1 mg NOW STAT PO 05/23/17 22:19 05/23/17 22:20 DC 05/23/17 22:35 1 MG Acetaminophen (Tylenol Tab) 650 mg Q4H PRN PO 05/23/17 23:45 06/22/17 23:44 05/24/17 03:51 650 MG Medical Decision This is an 86-year-old female who presents emergency department after multiple falls. The patient has a severe left lower extremities cellulitis. The patient is complaining of pain to the area. An IV was established, the patient was given 2 mg of morphine. Repeat examination revealed improvement in the patient's symptoms. Patient does have an elevation in her white blood count cell count. There is no evidence of acute fracture to her x-rays. She was started on Rocephin as well as vancomycin. She was sent for an ultrasound left lower extremity. Due to the patient's cellulitis and multiple falls I did discuss the case with the hospitalist service who agreed to admit the patient. Medication Reconcilliation Current Medication List: was personally reviewed by ct Blood Pressure Screening Patient's blood pressure: Elevated blood pressure Impression Primary Impression: Cellulitis of leg Departure Information Referrals Raheel Baeza M.D. (PCP) Patient Instructions My [facility] Problem Qualifiers Primary Impression: Cellulitis of leg Laterality: left Qualified Codes: L03.116 - Cellulitis of left lower limb
[2017-05-23 21:19] LABS: COMPLETE YES; EOS % 0.2 %; HEMATOCRIT 37.9 % (37-47); IG% 0.3 %; LYMPH % 6.4 %; LYMPH ABS # 0.74 K/uL (1.2-3.4); MEAN CORPUSCULAR HEMOGLOBIN 32.3 pg (25-34); MEAN PLATELET VOLUME 9.3 fL (7.4-10.4); MONO % 6.4 %; NEUT % 86.7 %; PLATELET COUNT 214 K/uL (130-400); RED BLOOD COUNT 3.99 M/uL (4.2-5.4); WHITE BLOOD COUNT 11.64 K/uL (4.8-10.8)
--- NOTE | 2017-05-23 21:25 | DIAGNOSTIC IMAGING REPORT ---
LEFT FOOT 3 VIEWS HISTORY: Left foot pain. COMPARISON: None. FINDINGS: There is no fracture or dislocation. The bones are osteopenic. Soft tissue swelling within the midfoot and hindfoot. Posterior and plantar calcaneal spurs. Mild degenerative changes within the left foot. The Lisfranc joint is well aligned. No radiopaque foreign bodies. IMPRESSION: Soft tissue swelling. No fractures within the left foot. Electronically signed by: Rigo Osman M.D. 05/23/2017 9:24 PM Dictated Date/Time: 05/23/2017 9:21 PM
--- NOTE | 2017-05-23 21:27 | DIAGNOSTIC IMAGING REPORT ---
L TIBIA/FIBULA 2 VIEWS ROUTINE CLINICAL HISTORY: Left leg swelling. COMPARISON STUDY: None. FINDINGS: No fracture or dislocation within the left tibia or fibula. Diffuse soft tissue swelling within the left lower leg. No radiopaque foreign bodies. The bones are osteopenic. IMPRESSION: Diffuse soft tissue swelling. No fractures within the left lower leg. Electronically signed by: Rigo Osman M.D. 05/23/2017 9:26 PM Dictated Date/Time: 05/23/2017 9:25 PM
--- NOTE | 2017-05-23 21:29 | DIAGNOSTIC IMAGING REPORT ---
CHEST ONE VIEW PORTABLE HISTORY: Leg swelling. COMPARISON: Chest 04/28/2017. FINDINGS: The cardiac silhouette remains mildly enlarged. No pleural effusions. No pneumothorax. No focal lung consolidations to suggest pneumonia. No evidence for pulmonary edema. Old, healed right humeral neck fracture. IMPRESSION: Stable mild cardiomegaly. No evidence for pulmonary edema. Electronically signed by: Rigo Osman M.D. 05/23/2017 9:27 PM Dictated Date/Time: 05/23/2017 9:26 PM
[2017-05-23] MEDS ORDERED: DMD20 PO (21:41)
[2017-05-23] MEDS ORDERED: DILT120C50 PO (21:41)
[2017-05-23] MEDS ORDERED: SALI0.6593 NAE (21:41)
[2017-05-23] MEDS ORDERED: NEOMOIN3 TOP (21:41)
[2017-05-23] MEDS ORDERED: LNX125 PO (21:41)
[2017-05-23 21:46] LABS: ALT/SGPT 32 U/L (12-78); BLOOD UREA NITROGEN 34 mg/dl (7-18); BUN/CREATININE RATIO 34.3 (10-20); CARBON DIOXIDE 28 mmol/L (21-32); CHLORIDE 103 mmol/L (98-107); CREATININE 0.99 mg/dl (0.60-1.20); GLUCOSE 139 mg/dl (70-99); SODIUM 138 mmol/L (136-145)
[2017-05-23 21:49] LABS: ALKALINE PHOSPHATASE 57 U/L (45-117); AST/SGOT 24 U/L (15-37); CKMB/CK RATIO 3.8 (0-3.0); THYROID STIMULATING HORMONE 0.844 uIu/ml (0.300-4.500)
[2017-05-23 22:02] LABS: URINE APPEARANCE CLEAR (CLEAR); URINE BILIRUBIN NEG (NEG); URINE COLOR YELLOW; URINE NITRITE NEG (NEG); URINE SPECIFIC GRAVITY 1.015 (1.000-1.030); UROBILINOGEN NEG (NEG)
[2017-05-23 22:04] LABS: MANUAL MICROSCOPIC REQUIRED? NO; REVIEW REQ? NO
--- NOTE | 2017-05-23 22:10 | DIAGNOSTIC IMAGING REPORT ---
LEFT LOWER EXTREMITY VENOUS DOPPLER HISTORY: Left leg swelling. COMPARISON STUDY: None. FINDINGS: There is normal compressibility, flow, and augmentation within the left lower extremity deep venous system. IMPRESSION: No DVT within the left lower extremity. Electronically signed by: Rigo Osman M.D. 05/23/2017 10:09 PM Dictated Date/Time: 05/23/2017 10:09 PM
[2017-05-23] MEDS ORDERED: HALOPERIDOL 5 MG TAB PO STA (22:18)
[2017-05-23] MEDS ORDERED: CLONAZEPAM 1 MG TAB PO STA (22:19)
[2017-05-23] MEDS ORDERED: CLONAZEPAM 0.5 MG TAB PO PRN (23:45)
[2017-05-23] MEDS ORDERED: ONDANSETRON INJ 2 MG/ML 2 ML VIAL IV PRN (23:45)
[2017-05-23] MEDS ORDERED: MAGNESIUM HYDROXIDE SUSP 30 ML UDC PO PRN ×2 (23:45)
[2017-05-23] MEDS ORDERED: ALUMINUM/MAGNESIUM/SIMETH (MAALOX MAX) 30 ML UDC PO PRN (23:45)
--- NOTE | 2017-05-23 23:49 | History and Physical ---
History & Physical Date & Time of Service: May 23, 2017 at 23:38 Chief Complaint: Fall/Leg Pain Primary Care Physician: Raheel Baeza M.D. History of Present Illness Source: patient, hospital records 86 y/o female with Hx Meningioma and HTN. Resides at [facility] - reported to be having frequent falls recently, although this appears to be a chronic issue. In addition, she has developed extensive cellulitis over her LLE. The pt herself is confused - possibly at baseline and could not provide any additional information. She has not had any reported fevers or rigors but does seem generally fatigued. Past Medical/Surgical History 1) Hypertension 2) Meningioma - pt is on Dexamethasone and Keppra 3) Cognitive dysfunction 4) Unstable gait Family History No pertinent family history Social History Smoking Status: Never Smoker Drug Use: none Marital Status: Housing status: lives with family Occupational Status: retired Immunizations History of Influenza Vaccine: Yes Influenza Vaccine Date: May 24, 2012 History of Tetanus Vaccine?: Yes Tetanus Immunization Date: Nov 22, 2010 History of Pneumococcal: Yes Pneumococcal Date: May 24, 2012 History of Hepatitis B Vaccine: No Multi-Drug Resistant Organisms History of MDRO: No Allergies Coded Allergies: Lorazepam (Verified Allergy, Unknown, unknown, 05/23/17) Home Medications Scheduled Aspirin (Aspir-81), 1 TAB PO MWF Cholecalciferol (Vitamin D3), 2,000 UNITS PO DAILY Dexamethasone (Dexamethasone), 1.5 MG PO BID Digoxin (Digoxin), 0.125 MG PO HS Diltiazem HCl (Diltiazem Cd), 120 MG PO QAM Levetiracetam (Keppra), 250 MG PO BID Metoprolol Tartrate (Lopressor) (Lopressor), 100 MG PO BID Neomycin/Polymyx/Bacitr (Neosporin), 1 APPLN TOP HS Potassium Chloride (Micro-K Ext Rel), 10 MEQ PO DAILY Torsemide (Torsemide), 10 MG PO DAILY Scheduled PRN Acetaminophen (Tylenol), 500 MG PO Q6H PRN for Pain or Fever Bisacodyl (Dulcolax), 1 SUPP [place] Q2D PRN for Constipation Clonazepam (Klonopin), 0.5 MG PO HS PRN for SEIZURES Docusate Sodium (Colace), 100 MG PO QAM PRN for Constipation Magnesium Hydroxide (Milk Of Magnesia), 30 ML PO Q2H PRN for Constipation Melatonin-Pyridoxine (Melatonin), 1 MG PO HS PRN for Sleep Saline (Cvs Saline Nose Sturgeon), 1 SPRAY ELMER DAILY PRN for Nasal Congestion Sodium Phosphate/Biphosphate (Fleet Enema), 1 EA IL Q72HRS PRN for Constipation Review of Systems Cannot obtain from this pt although she does state that she think she has an infection Physical Exam Vital Signs Date Time Temp Pulse Resp B/P (MAP) Pulse Ox O2 Delivery O2 Flow Rate FiO2 05/23/17 22:03 78 18 129/96 98 Room Air 05/23/17 21:21 68 18 154/72 98 Room Air 05/23/17 20:32 68 05/23/17 20:30 97 Room Air 05/23/17 20:30 97 Room Air 05/23/17 20:30 37.2 99 20 140/69 97 Room Air General Appearance: WD/WN, no apparent distress, + pertinent finding (PLeasant , confused, elderly female - no distress) Head: normocephalic Eyes: normal inspection, EOMI ENT: normal ENT inspection, pharynx normal Neck: supple, no JVD Respiratory/Chest: chest non-tender, lungs clear, normal breath sounds, no respiratory distress, no accessory muscle use, + decreased breath sounds (L > R base) Cardiovascular: regular rate, rhythm, no edema, no gallop, no JVD, no murmur, normal peripheral pulses Abdomen/GI: normal bowel sounds, non tender, soft Back: normal inspection, no CVA tenderness, no muscle spasm, normal range of motion Extremities/Musculoskelatal: + pertinent finding (Extensive cellulitis over L leg and foot ) Neurologic/Psych: 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 II-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 nml as tested, no motor/sensory deficits, alert, + disoriented Skin: + pertinent finding (Extensive cellulitis over L leg and foot ) Diagnostics Laboratory Results Results Past 24 Hours Test 05/23/17 21:00 05/23/17 21:12 Range/Units White Blood Count 11.64 4.8-10.8 K/uL Red Blood Count 3.99 4.2-5.4 M/uL Hemoglobin 12.9 12.0-16.0 g/dL Hematocrit 37.9 37-47 % Mean Corpuscular Volume 95.0 80-100 fL Mean Corpuscular Hemoglobin 32.3 25-34 pg Mean Corpuscular Hemoglobin Concent 34.0 32-36 g/dl Platelet Count 214 130-400 K/uL Mean Platelet Volume 9.3 7.4-10.4 fL Neutrophils (%) (Auto) 86.7 % Lymphocytes (%) (Auto) 6.4 % Monocytes (%) (Auto) 6.4 % Eosinophils (%) (Auto) 0.2 % Basophils (%) (Auto) 0.0 % Neutrophils # (Auto) 10.10 1.4-6.5 K/uL Lymphocytes # (Auto) 0.74 1.2-3.4 K/uL Monocytes # (Auto) 0.75 0.11-0.59 K/uL Eosinophils # (Auto) 0.02 0-0.5 K/uL Basophils # (Auto) 0.00 0-0.2 K/uL RDW Standard Deviation 53.4 36.4-46.3 fL RDW Coefficient of Variation 15.4 11.5-14.5 % Immature Granulocyte % (Auto) 0.3 % Immature Granulocyte # (Auto) 0.03 0.00-0.02 K/uL Sodium Level 138 136-145 mmol/L Potassium Level 4.0 3.5-5.1 mmol/L Chloride Level 103 98-107 mmol/L Carbon Dioxide Level 28 21-32 mmol/L Anion Gap 7.0 3-11 mmol/L Blood Urea Nitrogen 34 7-18 mg/dl Creatinine 0.99 0.60-1.20 mg/dl Est Creatinine Clear Calc Drug Dose 43.2 ml/min Estimated GFR () 59.8 Estimated GFR (Non- 51.6 BUN/Creatinine Ratio 34.3 10-20 Random Glucose 139 70-99 mg/dl Calcium Level 8.0 8.5-10.1 mg/dl Total Bilirubin 0.6 0.2-1 mg/dl Direct Bilirubin 0-0.2 mg/dl Aspartate Amino Transf (AST/SGOT) 24 15-37 U/L Alanine Aminotransferase (ALT/SGPT) 32 12-78 U/L Alkaline Phosphatase 57 45-117 U/L Total Creatine Kinase 87 26-192 U/L Creatine Kinase MB 3.3 0.5-3.6 ng/ml Creatine Kinase MB Ratio 3.8 0-3.0 Troponin I 0.027 0-0.045 ng/ml Total Protein 5.8 6.4-8.2 gm/dl Albumin 2.8 3.4-5.0 gm/dl Thyroid Stimulating Hormone (TSH) 0.844 0.300-4.500 uIu/ml Chemistry Specimen Hemolysis Digoxin Level 0.4 0.8-2.0 ng/ml Urine Color YELLOW Urine Appearance CLEAR CLEAR Urine pH 7.0 4.5-7.5 Urine Specific [place] 1.015 1.000-1.030 Urine Protein NEG NEG Urine Glucose (UA) NEG NEG Urine Ketones NEG NEG Urine Occult Blood NEG NEG Urine Nitrite NEG NEG Urine Bilirubin NEG NEG Urine Urobilinogen NEG NEG Urine Leukocyte Esterase NEG NEG Diagnostic Radiology No DVT seen on US of LLE Impression Assessment and Plan 86 y/o female with Hx Meningioma and HTN. Resides at [facility] - reported to be having frequent falls recently, although this appears to be a chronic issue. In addition, she has developed extensive cellulitis over her LLE. The pt herself is confused - possibly at baseline and could not provide any additional information. She has not had any reported fevers or rigors but does seem generally fatigued. 1) Cellulitis - Pt placed on Ceftriaxone. affected area delineated. 2) Meningioma - cont Dex and Keppra prophylaxis 3) Unsteady gait - likely worsened by cellulitis - PT/OT requested 4) HTN - cont Metoprolol DNR - No prophylaxis due to fall risk and LE cellulitis Total time for this admit including review of labs, meds, imaging, records - discussion with pt and ER attending - 35 min Level of Care Med/Surg Resuscitation Status FULL RESUSCITATION
[2017-05-24] VITALS (7 sets, daily range): BP systolic 119–157; BP diastolic 79–80; PULSE 69–142; TEMP 36.6–36.9; O2SAT 0–97; Ht 160 cm; Wt 89.0 kg
[2017-05-24] MEDS ORDERED: POLYETHYLENE (MIRALAX) 17 GM PACK PO PRN (01:30)
[2017-05-24] MEDS: CEFTRIAXONE SOD INJ 1 GM in DEXTROSE 5% ADD-VANTAGE 50ML 50 ML IV SCH ×2 (01:44→23:30)
[2017-05-24] MEDS: ACETAMINOPHEN 325 MG TAB PO PRN ×2 (03:51→23:43)
[2017-05-24] MEDS: METOPROLOL TARTRATE 100 MG TAB PO SCH ×2 (08:07→21:16)
[2017-05-24] MEDS: LEVETIRACETAM 250 MG TAB PO SCH ×2 (08:07→21:15)
[2017-05-24] MEDS: DEXAMETHASONE 1 MG TAB PO SCH ×2 (08:08→21:14)
[2017-05-24] MEDS: ASPIRIN 81 MG ECTAB PO SCH (08:08)
[2017-05-24] MEDS: DILTIAZEM HCL 120 MG CAPCR PO SCH (08:08)
[2017-05-24] MEDS: TORSEMIDE 20 MG TAB PO SCH (08:08)
[2017-05-24] MEDS: POTASSIUM CHLORIDE 10 MEQ TABCR PO SCH (08:09)
[2017-05-24 09:26] LABS: HEMATOCRIT 40.9 % (37-47); MEAN CELL VOLUME 95.8 fL (80-100); MEAN CORPUSCULAR HEMOGLOBIN 32.8 pg (25-34); MEAN CORPUSCULAR HGB CONC 34.2 g/dl (32-36); MEAN PLATELET VOLUME 9.2 fL (7.4-10.4); PLATELET COUNT 174 K/uL (130-400); RED BLOOD COUNT 4.27 M/uL (4.2-5.4); WHITE BLOOD COUNT 10.57 K/uL (4.8-10.8)
[2017-05-24 09:45] LABS: CALCIUM 7.6 mg/dl (8.5-10.1); CREATININE 0.78 mg/dl (0.60-1.20); POTASSIUM 3.8 mmol/L (3.5-5.1)
--- NOTE | 2017-05-24 15:41 | Hospitalist Progress Note ---
Hospitalist Progress Note Date of Service May 24, 2017. (Amina Noyola ., MAYLINC) Subjective Pt evaluation today including: conversation w/ patient, physical exam, chart review, lab review, review of studies, review of inpatient medication list Pain: LLE, suprapubic pain PO Intake: Tolerating PO diet Voiding: incontinence The patient complains of LLE pain. She also complains of sharp suprapubic pain that began after eating lunch. She states she is very restless and really wants to get out of bed and walk around, or at least get out of bed to the chair. Per nursing, the patient has been agitated and restless wanting to get out of bed and is confused. The patient denies fevers, chills, sweats, chest pain, palpitations, claudication, cough, wheezing, shortness of breath, nausea, vomiting, dysuria, hematuria, urinary retention, paralysis, weakness, numbness and tingling. Additional Comments: See HPI for pertinent positives and negatives. All other systems reviewed and negative. (Amina Noyola ., TEMO-C) Objective Vital Signs Date Time Temp Pulse Resp B/P (MAP) Pulse Ox O2 Delivery O2 Flow Rate FiO2 05/24/17 14:44 36.9 70 18 155/79 (104) 97 Room Air 05/24/17 09:27 73 20 95 Room Air 05/24/17 08:38 Room Air 05/24/17 08:30 96 Room Air 05/24/17 08:00 98 20 96 Room Air 05/24/17 07:51 36.6 142 18 119/80 (93) 94 Room Air 05/24/17 00:45 36.6 69 20 157/79 0 Room Air 96 05/23/17 23:57 68 20 143/82 98 Room Air 05/23/17 22:03 78 18 129/96 98 Room Air 05/23/17 21:21 68 18 154/72 98 Room Air 05/23/17 20:32 68 05/23/17 20:30 97 Room Air 05/23/17 20:30 97 Room Air 05/23/17 20:30 37.2 99 20 140/69 97 Room Air (Amina Noyola PA-C) Physical Exam Notes: General appearance: +Obese. Restless. Well-developed, well-nourished, no apparent distress Head: Normocephalic, atraumatic Eyes: Normal inspection, PERRL, EOMI ENT: Normal ENT inspection, hearing grossly normal, pharynx normal Neck: Supple, no JVD, trachea midline Respiratory/Chest: Lungs clear to auscultation, normal breath sounds, no respiratory distress Cardiovascular: Regular rate & rhythm, no gallop, no murmur Abdomen/GI: Normal bowel sounds, non-tender, soft Extremities/Musculoskeletal: +LLE markedly erythematous from ankle to just below knee. Erythema slightly improved, receding slightly from original line of demarcation. 1-2+ pitting edema bilaterally. LLE TTP. No calf tenderness Neurological/Psych: +Disoriented to time. Alert, normal mood/affect, oriented x 2 Skin: +Erythema as above in LLE. Normal color, warm/dry, no rash (Amina Noyola, DEVANG) Laboratory Results Last 24 Hours Test 05/23/17 20:49 05/23/17 21:00 05/23/17 21:12 05/24/17 09:09 Bedside Glucose 124 mg/dl White Blood Count 11.64 K/uL 10.57 K/uL Red Blood Count 3.99 M/uL 4.27 M/uL Hemoglobin 12.9 g/dL 14.0 g/dL Hematocrit 37.9 % 40.9 % Mean Corpuscular Volume 95.0 fL 95.8 fL Mean Corpuscular Hemoglobin 32.3 pg 32.8 pg Mean Corpuscular Hemoglobin Concent 34.0 g/dl 34.2 g/dl Platelet Count 214 K/uL 174 K/uL Mean Platelet Volume 9.3 fL 9.2 fL Neutrophils (%) (Auto) 86.7 % Lymphocytes (%) (Auto) 6.4 % Monocytes (%) (Auto) 6.4 % Eosinophils (%) (Auto) 0.2 % Basophils (%) (Auto) 0.0 % Neutrophils # (Auto) 10.10 K/uL Lymphocytes # (Auto) 0.74 K/uL Monocytes # (Auto) 0.75 K/uL Eosinophils # (Auto) 0.02 K/uL Basophils # (Auto) 0.00 K/uL RDW Standard Deviation 53.4 fL 53.1 fL RDW Coefficient of Variation 15.4 % 15.4 % Immature Granulocyte % (Auto) 0.3 % Immature Granulocyte # (Auto) 0.03 K/uL Sodium Level 138 mmol/L 138 mmol/L Potassium Level 4.0 mmol/L 3.8 mmol/L Chloride Level 103 mmol/L 106 mmol/L Carbon Dioxide Level 28 mmol/L 24 mmol/L Anion Gap 7.0 mmol/L 8.0 mmol/L Blood Urea Nitrogen 34 mg/dl 23 mg/dl Creatinine 0.99 mg/dl 0.78 mg/dl Est Creatinine Clear Calc Drug Dose 43.2 ml/min 54.8 ml/min Estimated GFR () 59.8 79.8 Estimated GFR (Non- 51.6 68.8 BUN/Creatinine Ratio 34.3 30.0 Random Glucose 139 mg/dl 106 mg/dl Calcium Level 8.0 mg/dl 7.6 mg/dl Total Bilirubin 0.6 mg/dl Direct Bilirubin mg/dl Aspartate Amino Transf (AST/SGOT) 24 U/L Alanine Aminotransferase (ALT/SGPT) 32 U/L Alkaline Phosphatase 57 U/L Total Creatine Kinase 87 U/L Creatine Kinase MB 3.3 ng/ml Creatine Kinase MB Ratio 3.8 Troponin I 0.027 ng/ml Total Protein 5.8 gm/dl Albumin 2.8 gm/dl Thyroid Stimulating Hormone (TSH) 0.844 uIu/ml Chemistry Specimen Hemolysis Digoxin Level 0.4 ng/ml Urine Color YELLOW Urine Appearance CLEAR Urine pH 7.0 Urine Specific [place] 1.015 Urine Protein NEG Urine Glucose (UA) NEG Urine Ketones NEG Urine Occult Blood NEG Urine Nitrite NEG Urine Bilirubin NEG Urine Urobilinogen NEG Urine Leukocyte Esterase NEG Test 05/24/17 15:19 (Amina Noyola ., MAYLINC) Assessment and Plan 86 y/o female with history of meningioma, HTN, and a-flutter who is a resident of [facility] and presents with LLE cellulitis. LLE cellulitis--improving -Admit to med/surg -Continue Rocephin 1 gm IV qd. Day #2 -Continue torsemide 10 mg PO qd -Affected area marked, erythema improving -Foot x-ray, tib/fib x-ray negative for fracture. Doppler ultrasound negative for DVT Unstable gait, frequent falls -PT/OT evaluate and treat -Fall precautions Meningioma--stable -Continue dexamethasone 1.5 mg PO BID and Keppra 250 mg PO BID HTN, a-flutter--stable. A-flutter found on Holter monitor from April 2017 -Continue digoxin 0.125 mg PO qd, diltiazem 120 mg PO qd, and Lopressor 100 mg PO BID DVT prophylaxis -Enoxaparin 40 mg SC q24h Code Status -Level V, DO NOT RESUSCITATE Dispo -From [facility] -PT/OT, CM consulted (Amina Noyola ., PA-C) I agree with PA assessment and plan and have seen and examined pt myself Resting comfortably in bed Still disoriented Leukocytosis resolved No fevers Cont rocephin Cellulitis improved Cx pending Tried to call daughter Vanessa, left message on VM (Miguel Sinclair, D.O.)
[2017-05-24 15:50] LABS: URINE APPEARANCE CLEAR (CLEAR); URINE BILIRUBIN NEG (NEG); URINE COLOR YELLOW; URINE NITRITE NEG (NEG); URINE PH 6.5 (4.5-7.5); URINE SPECIFIC GRAVITY 1.012 (1.000-1.030); UROBILINOGEN NEG (NEG)
[2017-05-24 15:55] LABS: MANUAL MICROSCOPIC REQUIRED? NO; REVIEW REQ? NO
[2017-05-24 16:07] LABS: PROTHROMBIN TIME (PATIENT) 10.4 SECONDS (9.0-12.0)
[2017-05-24] MEDS: DIGOXIN 0.125 MG TAB PO SCH (21:17)
[2017-05-24] MEDS: NEOMYCIN/POLYMYX/BACITR OINT 15 GM TUBE TOP SCH (21:18)
[2017-05-24] MEDS: ENOXAPARIN 40 MG/0.4 ML SYR SQ SCH (21:18)
[2017-05-25] VITALS: BP 127/66; PULSE 70; TEMP 36.3; O2SAT 98
[2017-05-25 06:46] LABS: BUN/CREATININE RATIO 39.3 (10-20); CALCIUM 8.1 mg/dl (8.5-10.1); CREATININE 0.62 mg/dl (0.60-1.20); POTASSIUM 4.1 mmol/L (3.5-5.1)
[2017-05-25 07:30] LABS: HEMATOCRIT 36.2 % (37-47); MEAN CELL VOLUME 94.8 fL (80-100); MEAN CORPUSCULAR HEMOGLOBIN 32.2 pg (25-34); MEAN PLATELET VOLUME 9.6 fL (7.4-10.4); PLATELET COUNT 193 K/uL (130-400); RED BLOOD COUNT 3.82 M/uL (4.2-5.4); WHITE BLOOD COUNT 9.02 K/uL (4.8-10.8)
[2017-05-25 08:38] VITALS: BP 133/78; PULSE 78; TEMP 36.4; O2SAT 96
[2017-05-25] MEDS: DILTIAZEM HCL 120 MG CAPCR PO SCH (08:52)
[2017-05-25] MEDS: DEXAMETHASONE 1 MG TAB PO SCH ×2 (08:55→20:29)
[2017-05-25] MEDS: ASPIRIN 81 MG ECTAB PO SCH (08:56)
[2017-05-25] MEDS: TORSEMIDE 20 MG TAB PO SCH (08:56)
[2017-05-25] MEDS: POTASSIUM CHLORIDE 10 MEQ TABCR PO SCH (08:57)
[2017-05-25] MEDS: LEVETIRACETAM 250 MG TAB PO SCH ×2 (08:57→20:30)
[2017-05-25] MEDS: METOPROLOL TARTRATE 100 MG TAB PO SCH ×2 (08:58→20:30)
[2017-05-25 10:49] VITALS: O2SAT 95
--- NOTE | 2017-05-25 11:23 | Palliative Care Consultation ---
Consultation Date of Consultation: May 25, 2017. Requesting Physician: Dr. Sinclair Attending Physician: Dr. Sinclair Reason for Consultation: Goals of care History of Present Illness This 86 year old female patient with PMH meningioma with midline shift, htn, others listed below, presented to the ED three days ago with left lower extremity cellulitis and frequent falls. She is being treated with IV abx. Apparently patient also hit her leg while at [facility] living where she resides, so there was also a hematoma on the lateral LLE. Her leg is improving. However, the patient has reportedly been getting weaker and having increased falls. Daughter, Vanessa, is a physician in , and his patient's power of patent prosecution attorney. Vanessa told Dr. Sinclair yesterday that her mother has been declining. Palliative care consulted. I met with the patient in room [address] Paiz (who knows the patient from [facility]). Patient is incredibly pleasant and talkative. Sitting on side of bed, oriented to person and somewhat event. She is confused at baseline and apparently the confusion has been worsening. Left leg edema, erythema, and hematoma are all improved from yesterday per report. Patient has no pain or discomfort. She is not really able to participate in goals of care conversation , but she did state that she is ready to get out of the hospital and go home. Dr. Paiz contacted [facility] who states that there is already a family meeting in place for next week with the patient's daughter to discuss moving patient to a higher level of care (skilled). POLST form was completed in January 2017 (copy is in our record) as follows: DNR, comfort measures only, abx with comfort as the goal, and no artificial hydration/nutrition. The plan will be to provide patient comfort care at [facility], can add hospice in if daughter desires after their family meeting. Spoke with patient's daughter/POA on the phone, Dr. Vanessa Dodd. See plan below. Past Medical/Surgical History Medical History: Meningioma on dexamethasone and Keppra Htn A-flutter/Afib Unsteady gait Frequent falls Social History Smoking Status: Unknown if Ever Smoked History of Alcohol Use: No Drug Use: none Marital Status: Housing Status: lives with family Occupation Status: retired Review of Systems Constitutional: + weakness, No fever, No chills Respiratory: No cough, No shortness of breath Cardiac: + edema, No chest pain Abdomen: No pain, No nausea, No vomiting Musculoskeletal: + problem reported (LLE pain resolved) Psychiatric: No anxiety Allergies Coded Allergies: Lorazepam (Verified Allergy, Unknown, unknown, 05/23/17) Medications Current Inpatient Medications Medications (Trade) Dose Ordered Sig/Silvia Route Start Time Stop Time Status Last Admin Dose Admin Aspirin (Ecotrin Tab) 81 mg DAILY PO 05/24/17 08:00 06/23/17 08:59 05/25/17 08:56 81 MG Clonazepam (Klonopin Tab) 0.5 mg HS PRN PO 05/23/17 23:45 06/22/17 23:44 Dexamethasone (Decadron Tab) 1.5 mg BID PO 05/24/17 08:00 06/23/17 08:59 05/25/17 08:55 1.5 MG Digoxin (Lanoxin Tab) 0.125 mg HS PO 05/24/17 21:00 06/23/17 20:59 05/24/17 21:17 0.125 MG Diltiazem HCl (Cardizem Cd Cap) 120 mg QAM PO 05/24/17 08:00 06/23/17 08:59 05/25/17 08:52 120 MG Levetiracetam (Keppra Tab) 250 mg BID PO 05/24/17 08:00 06/23/17 08:59 05/25/17 08:57 250 MG Metoprolol Tartrate (Lopressor Tab) 100 mg BID PO 05/24/17 08:00 06/23/17 08:59 05/25/17 08:58 100 MG Neomycin/ Polymyxin/ Bacitracin (Neosporin Oint) 1 appln HS TOP 05/24/17 21:00 06/23/17 20:59 05/24/17 21:18 1 APPLN Potassium Chloride (Klor-Con M10) 10 meq DAILY PO 05/24/17 08:00 06/23/17 08:59 05/25/17 08:57 10 MEQ Torsemide (Demadex Tab) 10 mg DAILY PO 05/24/17 08:00 06/23/17 08:59 05/25/17 08:56 10 MG Ceftriaxone Sodium 1 gm/ Dextrose 50 ml @ 100 mls/hr DAILY@2300 IV 05/24/17 01:30 06/03/17 01:29 05/24/17 23:30 100 MLS/HR Acetaminophen (Tylenol Tab) 650 mg Q4H PRN PO 05/23/17 23:45 06/22/17 23:44 05/24/17 23:43 650 MG Al Hydrox/Mg Hydrox/Simethicone (Maalox Max Susp) 15 ml Q4H PRN PO 05/23/17 23:45 06/22/17 23:44 Magnesium Hydroxide (Milk Of Magnesia Susp) 30 ml Q6H PRN PO 05/23/17 23:45 06/22/17 23:44 Polyethylene (Miralax Powder Packet) 17 gm DAILY PRN PO 05/24/17 01:30 06/23/17 01:29 Ondansetron HCl (Zofran Inj) 4 mg Q6H PRN IV 05/23/17 23:45 06/22/17 23:44 Enoxaparin Sodium (Lovenox Inj) 40 mg HS SQ 05/24/17 21:00 06/23/17 20:59 05/24/17 21:18 40 MG Physical Exam Date Time Temp Pulse Resp B/P (MAP) Pulse Ox O2 Delivery O2 Flow Rate FiO2 05/25/17 08:38 36.4 78 20 133/78 (96) 96 Room Air 05/25/17 08:00 Room Air 05/25/17 00:00 Room Air 05/25/17 00:00 36.3 70 20 127/66 (86) 98 Room Air 05/24/17 21:17 144 05/24/17 16:00 97 Room Air 05/24/17 14:44 36.9 70 18 155/79 (104) 97 Room Air General Appearance: no apparent distress ENT: + pertinent finding (slightly hard of hearing) Neck: supple, no JVD Respiratory: lungs clear, no respiratory distress, no accessory muscle use, + pertinent finding (few, fine crackles in LLL. could be chronic) Cardiovascular: regular rate, rhythm (regularly irregular), + pertinent finding (+1 pitting RLE, +2 pitting LLE) Abdomen: normal bowel sounds, non tender, soft Neurologic/Psychiatric: alert, normal mood/affect, + disoriented Skin: + pertinent finding (LLE with edema, erythema, and hematoma on lateral side) Laboratory Results Last 24 Hours Test 05/24/17 15:25 05/24/17 15:42 05/25/17 05:45 Urine Color YELLOW Urine Appearance CLEAR Urine pH 6.5 Urine Specific [place] 1.012 Urine Protein NEG Urine Glucose (UA) NEG Urine Ketones NEG Urine Occult Blood NEG Urine Nitrite NEG Urine Bilirubin NEG Urine Urobilinogen NEG Urine Leukocyte Esterase NEG Prothrombin Time 10.4 SECONDS Prothromb Time International Ratio 1.0 White Blood Count 9.02 K/uL Red Blood Count 3.82 M/uL Hemoglobin 12.3 g/dL Hematocrit 36.2 % Mean Corpuscular Volume 94.8 fL Mean Corpuscular Hemoglobin 32.2 pg Mean Corpuscular Hemoglobin Concent 34.0 g/dl RDW Standard Deviation 54.0 fL RDW Coefficient of Variation 15.6 % Platelet Count 193 K/uL Mean Platelet Volume 9.6 fL Sodium Level 139 mmol/L Potassium Level 4.1 mmol/L Chloride Level 106 mmol/L Carbon Dioxide Level 27 mmol/L Anion Gap 6.0 mmol/L Blood Urea Nitrogen 24 mg/dl Creatinine 0.62 mg/dl Est Creatinine Clear Calc Drug Dose 68.9 ml/min Estimated GFR () 94.6 Estimated GFR (Non- 81.6 BUN/Creatinine Ratio 39.3 Random Glucose 112 mg/dl Calcium Level 8.1 mg/dl Assessment & Plan Palliative Performance Scale: 50 % Problem list: Weakness Falls/unsteady gait Cognitive dysfunction/confusion- at baseline Cellulitis and hematoma of LLE Meningioma with midline shift- no intervention Goals of care (Z51.5) Palliative care recs: discussed with patient (limited conversation), daughter/ POA Dr. aVnessa Dodd, and Dr. Sinclair. -Patient is disoriented and not able to participate in goals of care conversation. -In speaking with Dr. Dodd on phone, the goal for the patient is to pursue comfort measures. There should be no escalation in care such as heart monitoring or transfer to higher level of acuity in hospital. -Daughter is coming into town next Monday and will be meeting with [facility] (Dr. Baeza, Dr. Paiz) to discuss plan of care. What will likely happen, and what I recommend, is for patient to transition to [facility] (skilled portion of [facility]) and have the addition of hospice care. Dr. Dodd agreed with this plan. -I do believe transfer to the hospital for treatment of the leg cellulitis was appropriate, as it was fairly significant and was causing patient discomfort. Vanessa and I discussed this over the phone and she agreed. She is concerned however about any further transfers to and from hospital as it is distressing to her mother. I stated that I believe with the transfer to skilled facility and with addition of hospice care, further transfers to the hospital can be avoided. Vanessa agreed. -POLST form already completed: DNR, comfort measures only, use or limitation of abx when infection occurs with comfort as the goal, no artificial hydration/ nutrition. It was signed by the patient in January 2017. -Patient has no further symptoms at this time. Thank you kindly for consulting me on the very nice patient and her family.
[2017-05-25 11:49] VITALS: BP 127/79; PULSE 68; TEMP 36.4; O2SAT 92
[2017-05-25 14:48] VITALS: BP 129/79; PULSE 73; TEMP 36.7; O2SAT 95
--- NOTE | 2017-05-25 15:15 | Hospitalist Progress Note ---
Hospitalist Progress Note Date of Service May 25, 2017. (Amina Noyola ., MAYLINC) Subjective Pt evaluation today including: conversation w/ patient, physical exam, chart review, lab review, review of inpatient medication list Pain: None PO Intake: Tolerating PO diet Voiding: incontinence The patient reports feeling well. She denies any pain in her LLE or any other complaints. The patient denies fevers, chills, sweats, chest pain, palpitations , claudication, cough, wheezing, shortness of breath, nausea, vomiting, abdominal pain, dysuria, hematuria, urinary retention, paralysis, weakness, numbness and tingling. Additional Comments: See HPI for pertinent positives and negatives. All other systems reviewed and negative. (Amina Noyola, MAYLINC) Objective Vital Signs Date Time Temp Pulse Resp B/P (MAP) Pulse Ox O2 Delivery O2 Flow Rate FiO2 05/25/17 14:48 36.7 73 20 129/79 (96) 95 Room Air 05/25/17 11:49 36.4 68 20 127/79 (95) 92 Room Air 05/25/17 10:49 95 Room Air 05/25/17 08:38 36.4 78 20 133/78 (96) 96 Room Air 05/25/17 08:00 Room Air 05/25/17 00:00 Room Air 05/25/17 00:00 36.3 70 20 127/66 (86) 98 Room Air 05/24/17 21:17 144 05/24/17 16:00 97 Room Air (Amina Noyola PA-C) Physical Exam Notes: General appearance: +Obese. Well-developed, well-nourished, no apparent distress Head: Normocephalic, atraumatic Eyes: Normal inspection, PERRL, EOMI ENT: Normal ENT inspection, hearing grossly normal, pharynx normal Neck: Supple, no JVD, trachea midline Respiratory/Chest: Lungs clear to auscultation, normal breath sounds, no respiratory distress Cardiovascular: Regular rate & rhythm, no gallop, no murmur Abdomen/GI: Normal bowel sounds, non-tender, soft Extremities/Musculoskeletal: +LLE markedly erythematous from ankle to just below knee. Erythema appears somewhat worse today, back up the original line of demarcation. 3+ pitting edema LLE, 1-2+ pitting RLE. No calf tenderness, non-tender Neurological/Psych: +Disoriented to time. Confused. States she is going to a football game now. Alert, normal mood/affect, oriented x 2 Skin: +Erythema as above in LLE. Normal color, warm/dry, no rash (Amina Noyola ., PA-C) Laboratory Results Last 24 Hours Test 05/24/17 15:25 05/24/17 15:42 05/25/17 05:45 Urine Color YELLOW Urine Appearance CLEAR Urine pH 6.5 Urine Specific [place] 1.012 Urine Protein NEG Urine Glucose (UA) NEG Urine Ketones NEG Urine Occult Blood NEG Urine Nitrite NEG Urine Bilirubin NEG Urine Urobilinogen NEG Urine Leukocyte Esterase NEG Prothrombin Time 10.4 SECONDS Prothromb Time International Ratio 1.0 White Blood Count 9.02 K/uL Red Blood Count 3.82 M/uL Hemoglobin 12.3 g/dL Hematocrit 36.2 % Mean Corpuscular Volume 94.8 fL Mean Corpuscular Hemoglobin 32.2 pg Mean Corpuscular Hemoglobin Concent 34.0 g/dl RDW Standard Deviation 54.0 fL RDW Coefficient of Variation 15.6 % Platelet Count 193 K/uL Mean Platelet Volume 9.6 fL Sodium Level 139 mmol/L Potassium Level 4.1 mmol/L Chloride Level 106 mmol/L Carbon Dioxide Level 27 mmol/L Anion Gap 6.0 mmol/L Blood Urea Nitrogen 24 mg/dl Creatinine 0.62 mg/dl Est Creatinine Clear Calc Drug Dose 68.9 ml/min Estimated GFR () 94.6 Estimated GFR (Non- 81.6 BUN/Creatinine Ratio 39.3 Random Glucose 112 mg/dl Calcium Level 8.1 mg/dl (Amina Noyola ., PA-C) Assessment and Plan 86 y/o female with history of meningioma, HTN, and a-flutter who is a resident of [facility] and presents with LLE cellulitis. LLE cellulitis--stable -Admit to med/surg -D/C Rocephin -Start Omnicef 300 mg PO BID. Day #3 of abx -Continue torsemide 10 mg PO qd -Affected area marked, erythema appears slightly worse but pt without any pain in affected area. Observe for one more day to ensure improvement -Foot x-ray, tib/fib x-ray negative for fracture. Doppler ultrasound negative for DVT Unstable gait, frequent falls -PT/OT evaluate and treat: recommend pt does not return to assisted living, recommending SNF. Pt from [facility], they can accept her back for skilled when medically stable -Fall precautions Meningioma--stable -Continue dexamethasone 1.5 mg PO BID and Keppra 250 mg PO BID HTN, a-flutter--stable. A-flutter found on Holter monitor from April 2017 -Continue digoxin 0.125 mg PO qd, diltiazem 120 mg PO qd, and Lopressor 100 mg PO BID DVT prophylaxis -Enoxaparin 40 mg SC q24h Code Status -Level V, DO NOT RESUSCITATE Dispo -From [facility] -PT/OT, CM consulted -Palliative care was consulted, spoke with daughter Vanessa and completed POLST. Plan to return back on skilled with comfort measures, may use abx with goal of comfort. Likely will later have hospice care. (Amina Noyola ., PA-C) i personally examined pt and verified all stevens points rogers Noyola PAC feeling ok leg still fairly red, erythema up to about the line drawn previously LLE cellulitis - continue abx, follow - to SNF level at [facility] once clearly improving otherwise as above (Joe Chino D.O.)
[2017-05-25] MEDS: CEFDINIR 300 MG CAP PO SCH (20:30)
[2017-05-25] MEDS: DIGOXIN 0.125 MG TAB PO SCH (20:32)
[2017-05-25] MEDS: NEOMYCIN/POLYMYX/BACITR OINT 15 GM TUBE TOP SCH (20:33)
[2017-05-25] MEDS: ENOXAPARIN 40 MG/0.4 ML SYR SQ SCH (20:33)
[2017-05-25] MEDS: ACETAMINOPHEN 325 MG TAB PO PRN (20:45)
[2017-05-25 23:58] VITALS: BP 142/82; PULSE 69; TEMP 36.4; O2SAT 97
[2017-05-26 06:11] LABS: HEMATOCRIT 37.5 % (37-47); MEAN CELL VOLUME 96.2 fL (80-100); MEAN CORPUSCULAR HEMOGLOBIN 32.3 pg (25-34); MEAN CORPUSCULAR HGB CONC 33.6 g/dl (32-36); MEAN PLATELET VOLUME 9.2 fL (7.4-10.4); PLATELET COUNT 233 K/uL (130-400); WHITE BLOOD COUNT 8.81 K/uL (4.8-10.8)
[2017-05-26 06:44] LABS: BUN/CREATININE RATIO 43.9 (10-20); CALCIUM 8.3 mg/dl (8.5-10.1); CREATININE 0.82 mg/dl (0.60-1.20); POTASSIUM 4.1 mmol/L (3.5-5.1)
[2017-05-26 06:51] VITALS: BP 160/87; PULSE 80; TEMP 36.6; O2SAT 97
[2017-05-26] MEDS: TORSEMIDE 20 MG TAB PO SCH (07:43)
[2017-05-26] MEDS: METOPROLOL TARTRATE 100 MG TAB PO SCH (07:44)
[2017-05-26] MEDS: CEFDINIR 300 MG CAP PO SCH (07:44)
[2017-05-26] MEDS: POTASSIUM CHLORIDE 10 MEQ TABCR PO SCH (07:44)
[2017-05-26] MEDS: DILTIAZEM HCL 120 MG CAPCR PO SCH (07:44)
[2017-05-26] MEDS: DEXAMETHASONE 1 MG TAB PO SCH (07:45)
[2017-05-26] MEDS: ASPIRIN 81 MG ECTAB PO SCH (07:45)
[2017-05-26] MEDS: LEVETIRACETAM 250 MG TAB PO SCH (07:45)
[2017-05-26] MEDS ORDERED: CEFD300C3 PO (13:42)
--- NOTE | 2017-05-26 13:53 | Discharge Instructions ---
Discharge Instructions Date of Service May 26, 2017. Admission Reason for Admission: Cellulitis Of Leg, Frequent Falls Discharge Discharge Diagnosis / Problem: Left lower extremity cellulitis Discharge Goals Goal(s): Decrease discomfort, Improve function, Diagnostic testing, Therapeutic intervention Activity Recommendations Activity Level: Assistance Required Therapies: Physical Therapy, Occupational Therapy . Additional Information Patient informed of condition: Yes Advance Directives: Yes DNR: Yes Level of Care: Skilled Communicable Disease: No Prognosis: Stable Akhtar Catheter: No Instructions / Follow-Up Instructions / Follow-Up The patient was admitted to the hospital with a left lower extremity cellulitis. She was treated with Rocephin and is showing improvement. Due to her history of frequent falls and confusion, the patient was evaluated by physical and occupational therapy. It was recommended that she not return to assisted living, and residential was recommended instead. Palliative care was also consulted, and the patient's daughter is agreeable to skilled and completed POLST form. Patient will likely later transition to hospice at some point, now on comfort measures with limited use of antibiotics with goal of comfort. Medications: *Continue Omnicef 300 mg PO BID x 6 more days for total of 10 day course. *Continue home medications as prescribed. Follow up: *Follow up with primary care provider within 1 week of discharge regarding hospital stay and to ensure resolution of cellulitis. *Pt may need local wound care to lower extremities. Please seek medical attention if patient experiences fevers, chills, sweats, dizziness/lightheadedness, loss of consciousness, fall, chest pain, shortness of breath, nausea, vomiting, numbness or tingling, or if the left lower extremity becomes more red, warm, tender or swollen. Current Hospital Diet Patient's current hospital diet: Regular Diet Discharge Diet Recommended Diet: Regular Diet Pending Studies Studies pending at discharge: no Physician Orders On Transfer Special Precautions: Fall precautions Vital Signs: Routine Additional Orders: Wound care to blisters/wounds on lower extremities POLST Discussion: with POLST completion Medical Emergencies . Who to Call and When: Medical Emergencies: If at any time you feel your situation is an emergency, please call 911 immediately. . Non-Emergent Contact Non-Emergency issues call your: Primary Care Provider Call Non-Emergent contact if: you have a fever, your pain is not controlled, your pain is worsening, your pain is unusual for you, your pain is concerning you, wound has increased drainage, wound has increased redness, wound has increased pain, you have any medication questions . Past History Medical & Surgical History: (1) Cellulitis of leg . "Provider Documentation" section prepared by Amina Noyola. . Core Measure Problem Core Measures: None
[2017-05-26 14:09] VITALS: BP 160/87; PULSE 80; TEMP 36.6; O2SAT 97
--- NOTE | 2017-05-26 14:14 | Discharge Summary ---
Discharge Summary Date of Service May 26, 2017. (Amina Noyola .DEVANG) Discharge Summary Admission Date: May 23, 2017 at 23:46 Discharge Date: May 26, 2017 Discharge Disposition: care home facility ([facility]) Principal Diagnosis: Left lower extremity cellulitis Problems/Secondary Diagnoses: Frequent falls Meningioma HTN A-flutter Immunizations: Have You Had Influenza Vaccine: Yes Influenza Vaccine Date: May 24, 2012 History of Tetanus Vaccine?: Yes Tetanus Immunization Date: Nov 22, 2010 History of Pneumococcal: Yes Pneumococcal Date: May 24, 2012 History of Hepatitis B Vaccine: No Procedures: L TIBIA/FIBULA 2 VIEWS ROUTINE CLINICAL HISTORY: Left leg swelling. COMPARISON STUDY: None. FINDINGS: No fracture or dislocation within the left tibia or fibula. Diffuse soft tissue swelling within the left lower leg. No radiopaque foreign bodies. The bones are osteopenic. IMPRESSION: Diffuse soft tissue swelling. No fractures within the left lower leg. LEFT FOOT 3 VIEWS HISTORY: Left foot pain. COMPARISON: None. FINDINGS: There is no fracture or dislocation. The bones are osteopenic. Soft tissue swelling within the midfoot and hindfoot. Posterior and plantar calcaneal spurs. Mild degenerative changes within the left foot. The Lisfranc joint is well aligned. No radiopaque foreign bodies. IMPRESSION: Soft tissue swelling. No fractures within the left foot. LEFT LOWER EXTREMITY VENOUS DOPPLER HISTORY: Left leg swelling. COMPARISON STUDY: None. FINDINGS: There is normal compressibility, flow, and augmentation within the left lower extremity deep venous system. IMPRESSION: No DVT within the left lower extremity. CHEST ONE VIEW PORTABLE HISTORY: Leg swelling. COMPARISON: Chest 04/28/2017. FINDINGS: The cardiac silhouette remains mildly enlarged. No pleural effusions. No pneumothorax. No focal lung consolidations to suggest pneumonia. No evidence for pulmonary edema. Old, healed right humeral neck fracture. IMPRESSION: Stable mild cardiomegaly. No evidence for pulmonary edema. (Amina Noyola .DEVANG) Medication Reconciliation New Medications: Cefdinir (Cefdinir) 300 Mg Cap 300 MG PO BID for 6 Days, #12 CAP Continued Medications: Acetaminophen (Tylenol) 500 Mg Tab 500 MG PO Q6H PRN for Pain or Fever, TAB Aspirin (Aspir-81) 81 Mg Tab 1 TAB PO MWF for 90 Days, TAB 3 Refills monday, monday, monday Bisacodyl (Dulcolax) 10 Mg Sup 1 SUPP ID Q2D PRN for Constipation, SUP GIVE IF NO RESULTS FROM MOM Cholecalciferol (Vitamin D3) 1,000 Unit Tab 2000 UNITS PO DAILY Clonazepam (Klonopin) 0.5 Mg Tab 0.5 MG PO HS PRN for SEIZURES Dexamethasone (Dexamethasone) 1 Mg Tab 1.5 MG PO BID Digoxin (Digoxin) 0.125 Mg Tab 0.125 MG PO HS Diltiazem HCl (Diltiazem Cd) 120 Mg Capcr 120 MG PO QAM HOLD IF APICAL HR <60 OR SBP <90 Docusate Sodium (Colace) 100 Mg Cap 100 MG PO QAM PRN for Constipation Levetiracetam (Keppra) 250 Mg Tab 250 MG PO BID, TAB Magnesium Hydroxide (Milk Of Magnesia) 30 Ml Susp 30 ML PO Q2H PRN for Constipation, ML Melatonin-Pyridoxine (Melatonin) 1 Tab Tab 1 MG PO HS PRN for Sleep Metoprolol Tartrate (Lopressor) (Lopressor) 100 Mg Tab 100 MG PO BID, TAB Neomycin/Polymyx/Bacitr (Neosporin) Oint 1 APPLN TOP HS NEOSPORIN LT OINTMENT (ALLANTOIN-PRAMOXINE) Potassium Chloride (Micro-K Ext Rel) 10 Meq Capcr 10 MEQ PO DAILY, CAP Saline (Cvs Saline Nose Buckner) 0.65 % Spr 1 SPRAY [place] DAILY PRN for Nasal Congestion Sodium Phosphate/Biphosphate (Fleet Enema) Chen 1 EA ID [id number] PRN for Constipation, BTL GIVE IF NO RESULTS FROM MOM OR SUPPOSITORY Torsemide (Torsemide) 20 Mg Tab 10 MG PO DAILY Discharge Exam Patient reports feeling well. Denies any LLE pain, numbness or tingling. Tolerating PO diet. The patient denies fevers, chills, sweats, chest pain, palpitations, claudication, cough, wheezing, shortness of breath, nausea, vomiting, abdominal pain, dysuria, hematuria, urinary retention, paralysis, weakness, numbness and tingling. Review of Systems: Constitutional: No fever, No chills, No sweats Eyes: No worsening of vision, No eye pain, No diplopia ENT: No hearing loss, No sore throat, No trouble swallowing Respiratory: No cough, No wheezing, No shortness of breath Cardiovascular: No chest pain, No claudication, No palpitations Abdomen: No pain, No nausea, No vomiting Musculoskeletal: No joint pain, No muscle pain, No calf pain Genitourinary - Female: No dysuria, No urinary retention, No hematuria Neurologic: No paralysis, No weakness, No numbness/tingling Integumentary: No rash, No itch, No color change Physical Exam: General Appearance: WD/WN, no apparent distress, + obese Eyes: normal inspection, PERRL, EOMI ENT: normal ENT inspection, hearing grossly normal, pharynx normal Neck: supple, no JVD, trachea midline Respiratory/Chest: lungs clear, normal breath sounds, no respiratory distress Cardiovascular: regular rate, rhythm, no gallop, no murmur Abdomen / GI: normal bowel sounds, non tender, soft Extremities: no calf tenderness, + swelling (3+ pitting edema LLE, 1+ RLE), + pertinent finding (erythema LLE improved, receding from original line of demarcation and generally less erythematous) Neurologic/Psychiatric: alert, normal mood/affect, + disoriented ( disoriented to place and time. Knew she was in [place] but not in the hospital. Knew it was April but not the year) Skin: warm/dry, no rash, + pertinent finding (erythema as above) (Amina Noyola ., MAYLINC) Hospital Course 86 y/o female with history of meningioma, HTN, and a-flutter who is a resident of [facility] and presents with LLE cellulitis. LLE cellulitis--improving -Admit to med/surg -D/C Rocephin -Start Omnicef 300 mg PO BID. Day #4 of abx. D/C with Omnicef for total of 10 day course -Continue torsemide 10 mg PO qd -Affected area marked, erythema improving -Foot x-ray, tib/fib x-ray negative for fracture. Doppler ultrasound negative for DVT Unstable gait, frequent falls -PT/OT evaluate and treat: recommend pt does not return to assisted living, recommending SNF. Pt from [facility], they can accept her back for skilled when medically stable -Fall precautions Meningioma--stable -Continue dexamethasone 1.5 mg PO BID and Keppra 250 mg PO BID HTN, a-flutter--stable. A-flutter found on Holter monitor from April 2017 -Continue digoxin 0.125 mg PO qd, diltiazem 120 mg PO qd, and Lopressor 100 mg PO BID DVT prophylaxis -Enoxaparin 40 mg SC q24h Code Status -Level V, DO NOT RESUSCITATE Dispo -From [facility] -PT/OT, CM consulted -Palliative care was consulted, spoke with daughter Vanessa and completed POLST. Plan to return back on skilled with comfort measures, may use abx with goal of comfort. Likely will later have hospice care. Total Time Spent: Greater than 30 minutes This includes examination of the patient, discharge planning, medication reconciliation, and communication with other providers. (Amina Noyola ., PA-C) i personally examined pt and verified all stevens points w A Dennys PAC leg looking better. she notes she feels OK except trouble with mobility vitals noted nad breahting unlabored, LLE improved erythema, no open lesions LLE cellulitis - improved. stable for SNF on cefdinir otherwise as above (Joe Chino, D.O.) Discharge Instructions Please refer to the electronic Patient Visit Report (Discharge Instructions) for additional information. (Amina Noyola ., PA-C) Additional Copies To Eulogio Wisdom
== END 2017-05-26 16:00 | DRG 603 ==
LOC: EDBD 20:13 → C.EDB 20:15 → C.4E 23:46 → ENRESERV 23:53
PROVIDERS: ADMIT Internal Medicine; ATTEND Family Medicine
DX: L03.116 Cellulitis of left lower limb (principal); I48.92 Unspecified atrial flutter; R26.81 Unsteadiness on feet; R29.6 Repeated falls; D32.9 Benign neoplasm of meninges, unspecified; I10 Essential (primary) hypertension; Z51.5 Encounter for palliative care; Z66 Do not resuscitate; E66.9 Obesity, unspecified; Z68.34 Body mass index [BMI] 34.0-34.9, adult; Z79.52 Long term (current) use of systemic steroids; Z79.82 Long term (current) use of aspirin; Z79.899 Other long term (current) drug therapy